=== PATIENT | male | born 1940 | race Caucasian/White ===

== ENCOUNTER 2019-01-01 08:15 | Outpatient (RCR) | payer OTHER, SELFPAY ==
--- NOTE | 2018-12-05 18:04 | PT.OTN ---
Current Diagnoses Lesion of sciatic nerve, unspecified lower limb (12/05/18) Pain in right knee (12/05/18) Physical Therapy Treatment Note PT-OP-A Visit Information Start: 12/05/18 12:37 Freq: Status: Active Protocol: Document 12/05/18 13:50 LRN (Rec: 12/05/18 14:57 LRN [id number]) Out-Patient Physical Therapy Visit Information Visit Information Visit Type Initial Evaluation Visit Start Time 13:50 Visit Stop Time 14:51 Total Visit Minutes 61 Visit Number 0 Evaluation Information Evaluation Date 12/05/18 Precautions Precautions Recent CA history and multiple cancer history (tongue, prostate, bladder), L TKA, hernia repair, history of chronic trochanteric bursitis, DVT history of L lower leg. PT-OP-B Current Condition Start: 12/05/18 12:37 Freq: Status: Active Protocol: Document 12/05/18 13:50 LRN (Rec: 12/05/18 14:57 LRN [id number]) Current Condition History of Current Condition Onset Date 6 months ago Current Complaints Feels weak in both legs. Going up/down stairs and hiking, occ R knee pn History of Current Condition L TKA 6 yrs ago (age 72), recovered well except L leg was weak compared to the R leg . Last year was having problems with the R hip and Piriformis and it has gotten stiff. Has slight pain in R hip and with hiking has R knee pain (intermittent 4-5/10), at end it aches at level of 2/ 10. Can live with the ache and occasional sharp pain. Prior Treatments and Tests None Future Testing and Treatments Planned None Developmental History Developmental History Last year had therapy with [facility] due to hip pain. He had gained mobility and had pain relief. Treatment Goals Patient/Caregiver Goals Wants ex and stretches to build up muscle mass and so he can continue hiking, do yoga with as much range as possible . (L knee ROM post therapy was -3 - 125 deg's). Prior Functional Status Baseline Function- ADL's Independent Baseline Function- Mobility Independent Baseline Function- Recreation/Hobbies Stepping over roots and rocks or going up/down slick rocks or climbing down roots without difficulty. Current Functional Impairments (Reported) Functional Limitations- ADL's Balance: Can't stand SLS on L left leg, but can on the right . Functional Limitations- Mobility/Gait Hikes trails once per week, 2 hours. Has occasional difficulty and pain with stepping over roots an rocks or going up/down slick rocks or climbing down roots. Personal Factors Other Personal Factors That May Effect Hx of Bladder CA, 2 surgeries Therapy/Recovery (10 yrs ago was most recent), treated for prostate cancer early this year with radiation program completed, CA of tongue - 2 yrs ago. L TKA - 6yrs ago, hernia repair - 6 yrs ago, history of chronic trochanteric bursitis, DVT history of L lower leg. PT-OP-G Mobility & Gait Start: 12/05/18 12:37 Freq: Status: Active Protocol: Document 12/05/18 13:50 LRN (Rec: 12/05/18 14:57 LRN [id number]) Stair Climbing Evaluation Comments Stair Climbing Comments Normal no need for assist PT-OP-J Posture/Palpation/Skin Start: 12/05/18 12:37 Freq: Status: Active Protocol: Document 12/05/18 13:50 LRN (Rec: 12/05/18 17:13 LRN [id number]) Posture Evaluation Comments Posture Comments Standing: L foot in ER, discoloration of L lower leg wearing compression stocking ( L only), trunk shift R, L shoulder and scapula is low, L arm held in mild ABD, L nipple low, head forward, L PSIS is posterior, R rotated and elevated, R innominate is mildly anteriorly rotated, calcaneal valgus bilaterally, pes cavus bilaterally. Palpation Assessment Location Leg length Palpation Location ASIS > Medial malleolus Palpation Details L le cm R leg 98.8 cm R medial knee Palpation Location R medial joint line of knee Palpation Findings None/Normal Palpation Details Supine with knee extended and 45 degree flexed. IT Band Palpation Location Mid thigh IT Band Palpation Findings Soft Tissue Tightness, Tenderness PT-OP-K Range of Motion Start: 12/05/18 12:37 Freq: Status: Active Protocol: Document 12/05/18 13:50 LRN (Rec: 12/05/18 17:13 LRN [id number]) Hip Goniometric Range of Motion Hip Right Passive Testing Position Supine Left Passive Testing Position Supine Knee Goniometric Range of Motion Knee Right Knee ROM WFL Yes Patient Position Supine Flexion Active (degrees) 128 Hyper-Extension Active 3 Left Knee ROM WFL No Patient Position Supine Flexion Active (degrees) 120 Hyper-Extension Active 3 Ankle and Foot Goniometric Range of Motion Ankle and Foot ROM Limitations Comments L ankle active IV and EV is decreased. PT-OP-L Special Tests Start: 12/05/18 12:37 Freq: Status: Active Protocol: Document 12/05/18 13:50 LRN (Rec: 12/05/18 17:13 LRN [id number]) Special Tests Knee Special Tests Jovan Test Test Results R knee: negative Comments Pt had pain in lateral R knee with testing of medial side and lateral side of the knee. Pain is primarily on compression of the lateral knee joint. Patellar Grind Test Test Results R knee: positive Comments Pain at knee with compression. Neural Special Tests- Lower Body Sciatic Nerve Tension Test Results negative biliaterally Comments PSLR is 80 deg's bilaterally PT-OP-M Strength Start: 12/05/18 12:37 Freq: Status: Active Protocol: Document 12/05/18 13:50 LRN (Rec: 12/05/18 17:13 LRN [id number]) Trunk Strength Trunk Manual Muscle Testing Testing Position Supine Core Stabilization Pt lacks core stabilization with hip flexion MMT (R worse than L). Hip Strength Hip Manual Muscle Testing Right Flexion (L2) 3 Fair Extension (S1) 5 Normal Abduction 5 Normal Adduction 5 Normal Left Flexion (L2) 5 Normal Extension (S1) 4 Good Abduction 5 Normal Adduction 4+ Good+ Knee Strength Knee Manual Muscle Testing Right Flexion (S2) 4+ Good+ Extension (L3) 5 Normal Comments Medial hamstring is 4+/5. Left Reason Not Measured WFL Ankle/Foot Strength Ankle and Foot Manual Muscle Testing Right Dorsiflexion (L4) 5 Normal Plantarflexion (S1) 5 Normal Left Dorsiflexion (L4) 5 Normal Plantarflexion (S1) 5 Normal PT-OP-Q Treatments Start: 12/05/18 12:37 Freq: Status: Active Protocol: Document 12/05/18 13:50 LRN (Rec: 12/05/18 17:13 LRN [id number]) Therapeutic Exercises Supine Exercises Lateral hip stretch Supine Exercise Name Lateral hip stretch Side left Comments Extra time taken for training/ instructions Piriformis stretch Supine Exercise Name Piriformis stretch Side left Comments Extra time taken for training/ instructions Self-Care/Home Management Treatment Education Patient Education Posture Activities Self-Care/Home Management Activities Discussed self care of use of lift in R shoe due to long L leg, wearing with/without shoes. Instructed pt in HEP: Piriformis and Lateral hip stretch. PT-OP-T Assessment and Plan Start: 12/05/18 12:37 Freq: Status: Active Protocol: Document 12/05/18 13:50 LRN (Rec: 12/05/18 17:13 LRN [id number]) Physical Therapy Assessment Rehab Potential Rehabilitation Potential Excellent Evaluation Complexity Number of Personal Factors/Comorbidities 3 or More Number of Body Systems Impaired 4 or More Clinical Presentation at Evaluation Evolving Impairments Impairments Balance,Pain,Posture,ROM,Soft Tissue Mobility,Strength Goals One Impairment Pt lacks appropriate self care HEP. Easement Worker Goal (LTG) Pt will be independent in a self care HEP. LTG Duration 02/03/19 Assessment Summary Assessment Pt presents with soft tissue dysfunction of the knees bilaterally, causing excessive strain/stress on the R knee and pain. The pt has postural mechanical dysfunction with what appears to be a long left leg by 5.2 cm as measured from ASIS to medial malleolus. The pt will benefit from skilled physical therapy to improve L hip/knee/ankle mobility, R hip/knee (R medial hamstring) and ankle stability/strength, and core strength. Physical Therapy Plan Frequency and Duration Frequency of Treatment 2x/Week Plan of Care Start Date 12/05/18 Plan of Care End Date 02/03/19 Therapeutic Interventions Therapeutic Interventions Balance Training,Home Exercise Program,Manual Therapy, Neuromuscular Re-education, Patient/Caregiver Education, Self-Care/Home Management,Soft Tissue Mobilization,Taping, Therapeutic Exercises Modalities Cold Pack/Ice Massage, Ultrasound Next Visit Focus/Plan Next Note Type Treatment Note Next Visit Plan Review pt's old HEP and start new appropriate HEP for current status. Assess hip IR /ER strength, and ankle IV/EV strength/ROM. Initiate core strengthening and hip (flex/ ext) strengthening. Assess posture in standing with lift in R shoe. Correct R innominate inflare. STM for IT band bilaterally and start pt on HEP for self STM. Discuss self care to minimize R lateral knee pain, after exercise/hiking and resume pt in L TKA ROM ex's to improve mobility. Check SLS and progress ankle ROM (L) and strengthening (bilaterally) for independence to a [facility] within 4-6 weeks with extra time allowed for scheduling changes.
--- NOTE | 2018-12-05 18:05 | PT.OIE ---
Current Diagnoses Lesion of sciatic nerve, unspecified lower limb (12/07/18) Pain in right knee (12/07/18) Past Medical History (Last Reviewed 10/05/17 @ 14:33 by Marco Antonio Bolanos MD) Allergic rhinitis (Chronic) Benign non-nodular prostatic hyperplasia without lower urinary tract symptoms (Chronic 02/03/15) Bilateral hearing loss (Chronic 02/03/15) Bladder cancer (Resolved) BPH (benign prostatic hyperplasia) (Chronic) Cataracts, bilateral (Chronic) Chickenpox (Resolved) Colon polyps (Resolved) DVT of leg (deep venous thrombosis) (Resolved 1987) Erectile dysfunction (Chronic) Herpes (Chronic) History of bladder cancer (Chronic) Hyperlipemia (Chronic) Lesion of bladder (Chronic 02/03/15) Measles (Resolved) Pure hypercholesterolemia (Chronic 03/15/17) 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) Seborrheic keratosis (Chronic 02/03/15) Trochanteric bursitis of right hip (Chronic 03/15/17) Past Surgical History (Last Reviewed 10/05/17 @ 14:33 by Marco Antonio Bolanos MD) History of bladder surgery (Resolved 2002) History of carpal tunnel repair (1993) Hx of cataract surgery (Resolved ~09/2012) Hx of cystoscopy (Resolved) Hx of hernia repair (Resolved) Hx of thumb surgery (Resolved 1983) Hx of total knee arthroplasty (Resolved 06/2012) Hx of vitrectomy (Resolved) Status post transurethral resection of prostate (2002) Visit Care Team Role Provider Type Hector Daugherty MD Attending Provider Physician Primary Care Provider Specialty: Internal Medicine Address: [address] [place] [address], [address], [facility] Email: [email or web address] Physical Therapy Initial Evaluation PT-OP-A Visit Information Start: 12/05/18 12:37 Freq: Status: Active Protocol: Document 12/05/18 13:50 LRN (Rec: 12/05/18 14:57 LRN [id number]) Out-Patient Physical Therapy Visit Information Visit Information Visit Type Initial Evaluation Visit Start Time 13:50 Visit Stop Time 14:51 Total Visit Minutes 61 Visit Number 0 Evaluation Information Evaluation Date 12/05/18 Precautions Precautions Recent CA history and multiple cancer history (tongue, prostate, bladder), L TKA, hernia repair, history of chronic trochanteric bursitis, DVT history of L lower leg. PT-OP-B Current Condition Start: 12/05/18 12:37 Freq: Status: Active Protocol: Document 12/05/18 13:50 LRN (Rec: 12/05/18 14:57 LRN [id number]) Current Condition History of Current Condition Onset Date 6 months ago Current Complaints Feels weak in both legs. Going up/down stairs and hiking, occ R knee pn History of Current Condition L TKA 6 yrs ago (age 72), recovered well except L leg was weak compared to the R leg . Last year was having problems with the R hip and Piriformis with increased stiffness of mobility. He reports slight R hip pain, and with hiking has R knee pain ( intermittent 4-5/10), at end of hikes his pain becomes an ache at a level of 2/10. He states he can live with the ache and an occasional sharp pain, but pain is too noticeable at this time. Prior Treatments and Tests Physical therapy for R hip pain @ [facility]. Future Testing and Treatments Planned None Developmental History Developmental History Last year had therapy with [facility] due to R hip pain. He had gained mobility and had pain relief. L TKA rehab at [facility]. Treatment Goals Patient/Caregiver Goals Wants ex and stretches to build up muscle so he can continue hiking, doing yoga ( with as much range as possible ). L knee ROM was after finishing therapy at [facility]: -3 - 125 deg's. Prior Functional Status Baseline Function- ADL's Independent Baseline Function- Mobility Independent Baseline Function- Recreation/Hobbies Without difficulty: Stepping over roots and rocks, going up /down slick rocks, climbing down roots. Current Functional Impairments (Reported) Functional Limitations- ADL's Balance: Pt reports: Can't stand SLS on L left leg, but can on the right. Functional Limitations- Mobility/Gait Hikes trails once per week, 2 hours. Has occasional difficulty & pain with: stepping over roots and rocks, going up/down slick rocks, climbing down roots. Personal Factors Other Personal Factors That May Effect Hx of Bladder CA, 2 surgeries Therapy/Recovery (10 yrs ago was most recent), treated for prostate cancer early this year with radiation program completed, CA of tongue - 2 yrs ago. L TKA - 6 yrs ago, hernia repair - 6 yrs ago, history of chronic trochanteric bursitis, DVT history of L lower leg. PT-OP-C Subjective Start: 12/05/18 12:37 Freq: Status: Active Protocol: Document 12/05/18 13:50 LRN (Rec: 12/07/18 08:58 LRN [id number]) Patient Questionnaires Lower Extremity Functional Scale LEFS Score 30 LEFS Impairment 60 to 79% Impaired (Score 17- 31) OP-PT Pain Assessment Pain Assessment Grid Paper Pain Assessment Grid Completed Yes Location L Quad, mid femur Pain Location Details L Quad, mid femur Scale Used Numeric (1 - 10) Description Aching R hip Pain Location Details Lateral R hip Intensity 2 Scale Used Numeric (1 - 10) Description Aching,Sharp R knee Pain Location Details R knee anteriorly Intensity 4 Scale Used Numeric (1 - 10) Description Aching,Sharp PT-OP-G Mobility & Gait Start: 12/05/18 12:37 Freq: Status: Active Protocol: Document 12/05/18 13:50 LRN (Rec: 12/05/18 14:57 LRN [id number]) Stair Climbing Evaluation Comments Stair Climbing Comments Normal no need for assist PT-OP-J Posture/Palpation/Skin Start: 12/05/18 12:37 Freq: Status: Active Protocol: Document 12/05/18 13:50 LRN (Rec: 12/05/18 17:13 LRN [id number]) Posture Evaluation Comments Posture Comments Standing: L foot in ER, discoloration of L lower leg wearing compression stocking ( L only), trunk shift R, L shoulder and scapula is low, L arm held in mild ABD, L nipple low, head forward, L PSIS is posterior, R rotated and elevated, R innominate is mildly anteriorly rotated, calcaneal valgus bilaterally, pes cavus bilaterally. Palpation Assessment Location Leg length Palpation Location ASIS > Medial malleolus Palpation Details L le cm R leg 98.8 cm R medial knee Palpation Location R medial joint line of knee Palpation Findings None/Normal Palpation Details Supine with knee extended and 45 degree flexed. IT Band Palpation Location Mid thigh IT Band Palpation Findings Soft Tissue Tightness, Tenderness PT-OP-K Range of Motion Start: 12/05/18 12:37 Freq: Status: Active Protocol: Document 12/05/18 13:50 LRN (Rec: 12/05/18 17:13 LRN [id number]) Hip Goniometric Range of Motion Hip Right Passive Testing Position Supine Flexion w/Knee Flexed 130 Straight Leg Raise 80 Abduction 40 Internal Rotation 35 External Rotation 65 Left Passive Testing Position Supine Flexion w/Knee Flexed 130 Straight Leg Raise 80 Abduction 38 Internal Rotation 35 External Rotation 85 Knee Goniometric Range of Motion Knee Right Knee ROM WFL Yes Patient Position Supine Flexion Active (degrees) 128 Hyper-Extension Active 3 Left Knee ROM WFL No Patient Position Supine Flexion Active (degrees) 120 Hyper-Extension Active 3 Ankle and Foot Goniometric Range of Motion Ankle and Foot ROM Limitations Comments L ankle active IV and EV is decreased. PT-OP-L Special Tests Start: 12/05/18 12:37 Freq: Status: Active Protocol: Document 12/05/18 13:50 LRN (Rec: 12/05/18 17:13 LRN [id number]) Special Tests Knee Special Tests Jovan Test Test Results R knee: negative Comments Pt had pain in lateral R knee with testing of medial side and lateral side of the knee. Pain is primarily on compression of the lateral knee joint. Patellar Grind Test Test Results R knee: positive Comments Pain at knee with compression. Neural Special Tests- Lower Body Sciatic Nerve Tension Test Results negative biliaterally Comments PSLR is 80 deg's bilaterally PT-OP-M Strength Start: 12/05/18 12:37 Freq: Status: Active Protocol: Document 12/05/18 13:50 LRN (Rec: 12/05/18 17:13 LRN [id number]) Trunk Strength Trunk Manual Muscle Testing Testing Position Supine Core Stabilization Pt lacks core stabilization with hip flexion MMT (R worse than L). Hip Strength Hip Manual Muscle Testing Right Flexion (L2) 3 Fair Extension (S1) 5 Normal Abduction 5 Normal Adduction 5 Normal Left Flexion (L2) 5 Normal Extension (S1) 4 Good Abduction 5 Normal Adduction 4+ Good+ Knee Strength Knee Manual Muscle Testing Right Flexion (S2) 4+ Good+ Extension (L3) 5 Normal Comments Medial hamstring is 4+/5. Left Reason Not Measured WFL Ankle/Foot Strength Ankle and Foot Manual Muscle Testing Right Dorsiflexion (L4) 5 Normal Plantarflexion (S1) 5 Normal Left Dorsiflexion (L4) 5 Normal Plantarflexion (S1) 5 Normal PT-OP-Q Treatments Start: 12/05/18 12:37 Freq: Status: Active Protocol: Document 12/05/18 13:50 LRN (Rec: 12/05/18 17:13 LRN [id number]) Therapeutic Exercises Supine Exercises Lateral hip stretch Supine Exercise Name Lateral hip stretch Side left Comments Extra time taken for training/ instructions Piriformis stretch Supine Exercise Name Piriformis stretch Side left Comments Extra time taken for training/ instructions Self-Care/Home Management Treatment Education Patient Education Posture Activities Self-Care/Home Management Activities Discussed self care of use of lift in R shoe due to long L leg, wearing with/without shoes. Instructed pt in HEP: Piriformis and Lateral hip stretch. PT-OP-T Assessment and Plan Start: 12/05/18 12:37 Freq: Status: Active Protocol: Document 12/05/18 13:50 LRN (Rec: 12/05/18 17:13 LRN [id number]) Physical Therapy Assessment Rehab Potential Rehabilitation Potential Excellent Evaluation Complexity Number of Personal Factors/Comorbidities 3 or More Number of Body Systems Impaired 4 or More Clinical Presentation at Evaluation Evolving Impairments Impairments Balance,Pain,Posture,ROM,Soft Tissue Mobility,Strength Goals Four Impairment R knee pain with stepping over objects Short Term Goal (STG) Pt will be educated in proper body mechanics to Wild Life Manager Goal (LTG) Pt will be able to step over rocks and roots while hiking without pain. Three Impairment Decr hip & knee mobility limiting ability to maintain health through yoga Short Term Goal (STG) Pt will be able to obtain symmetry in hip mobility and decrease assymetry of knee flexion in order to improve painfree mobility with descending roots while hiking. STG Duration 01/16/19 Fpc Goal (LTG) Pt will be able to improve hip and knee mobility to make sitting on the floor for yoga exercise tolerable. Pt will return to yoga exercise. LTG Duration 02/03/19 Two Impairment LE and core weakness Short Term Goal (STG) Improve LE strength to 5/5 bilaterally of the hips (R flexors, L extensors & Adductors) and knees (R hamstrings). STG Duration 01/16/19 Fpc Goal (LTG) Pt will be able to maintain core stability when resistance is applied to LE's. LTG Duration 02/03/19 One Impairment Pt lacks appropriate self care HEP. Fpc Goal (LTG) Pt will be independent in a self care HEP. Wants ex and stretches to build up muscle so he can continue hiking, doing yoga ( with as much range as possible ). L knee ROM was after finishing therapy at [facility]: -3 - 125 deg's. LTG Duration 02/03/19 Assessment Summary Assessment Pt presents with soft tissue dysfunction (mobility and strength) of the knees bilaterally and core weakness, causing excessive strain/ stress on the R knee and therefore pain. The pt has postural mechanical dysfunction with what appears to be a long left leg by 5.2 cm as measured from ASIS to medial malleolus. The pt will benefit from skilled physical therapy to improve L hip/knee /ankle mobility, R hip/knee (R medial hamstring) and ankle stability/strength, core strength, and placement on an independent exercise program. Physical Therapy Plan Frequency and Duration Frequency of Treatment 2x/Week Plan of Care Start Date 12/05/18 Plan of Care End Date 02/03/19 Therapeutic Interventions Therapeutic Interventions Balance Training,Home Exercise Program,Manual Therapy, Neuromuscular Re-education, Patient/Caregiver Education, Self-Care/Home Management,Soft Tissue Mobilization,Taping, Therapeutic Exercises Modalities Cold Pack/Ice Massage, Ultrasound Next Visit Focus/Plan Next Note Type Treatment Note Next Visit Plan Review pt's old HEP and start new appropriate HEP for current status. Assess hip IR /ER strength, and ankle IV/EV strength/ROM. Initiate core strengthening and hip (flex/ ext) strengthening. Assess posture in standing with lift in R shoe. Correct R innominate inflare. STM for IT band bilaterally and start pt on HEP for self STM. Discuss self care to minimize R lateral knee pain, after exercise/hiking and resume pt in L TKA ROM ex's to improve mobility. Check SLS and progress ankle ROM (L) and strengthening (bilaterally) for independence to a HEP within 4-6 weeks with extra time allowed for scheduling changes.
--- NOTE | 2018-12-07 12:28 | PT.OTN ---
Current Diagnoses Lesion of sciatic nerve, unspecified lower limb (12/07/18) Pain in right knee (12/07/18) Physical Therapy Treatment Note PT-OP-A Visit Information Start: 12/05/18 12:37 Freq: Status: Active Protocol: Document 12/07/18 09:03 LRN (Rec: 12/07/18 12:28 LRN [id number]) Out-Patient Physical Therapy Visit Information Visit Information Visit Type Treatment Note Visit Start Time 09:03 Visit Stop Time 09:45 Total Visit Minutes 42 Visit Number 2 Number of HEAD GREENSKEEPER Visits 0 Evaluation Information Evaluation Date 12/05/18 Precautions Precautions Recent CA history and multiple cancer history (tongue, prostate, bladder), L TKA, hernia repair, history of chronic trochanteric bursitis, DVT history of L lower leg. PT-OP-B Current Condition Start: 12/05/18 12:37 Freq: Status: Active Protocol: Document 12/05/18 13:50 LRN (Rec: 12/05/18 14:57 LRN [id number]) Current Condition History of Current Condition Onset Date 6 months ago Current Complaints Feels weak in both legs. Going up/down stairs and hiking, occ R knee pn History of Current Condition L TKA 6 yrs ago (age 72), recovered well except L leg was weak compared to the R leg . Last year was having problems with the R hip and Piriformis with increased stiffness of mobility. He reports slight R hip pain, and with hiking has R knee pain ( intermittent 4-5/10), at end of hikes his pain becomes an ache at a level of 2/10. He states he can live with the ache and an occasional sharp pain, but pain is too noticeable at this time. Prior Treatments and Tests Physical therapy for R hip pain @ [facility]. Future Testing and Treatments Planned None Developmental History Developmental History Last year had therapy with [facility] due to R hip pain. He had gained mobility and had pain relief. L TKA rehab at [facility]. Treatment Goals Patient/Caregiver Goals Wants ex and stretches to build up muscle so he can continue hiking, doing yoga ( with as much range as possible ). L knee ROM was after finishing therapy at [facility]: -3 - 125 deg's. Prior Functional Status Baseline Function- ADL's Independent Baseline Function- Mobility Independent Baseline Function- Recreation/Hobbies Without difficulty: Stepping over roots and rocks, going up /down slick rocks, climbing down roots. Current Functional Impairments (Reported) Functional Limitations- ADL's Balance: Pt reports: Can't stand SLS on L left leg, but can on the right. Functional Limitations- Mobility/Gait Hikes trails once per week, 2 hours. Has occasional difficulty & pain with: stepping over roots and rocks, going up/down slick rocks, climbing down roots. Personal Factors Other Personal Factors That May Effect Hx of Bladder CA, 2 surgeries Therapy/Recovery (10 yrs ago was most recent), treated for prostate cancer early this year with radiation program completed, CA of tongue - 2 yrs ago. L TKA - 6 yrs ago, hernia repair - 6 yrs ago, history of chronic trochanteric bursitis, DVT history of L lower leg. PT-OP-C Subjective Start: 12/05/18 12:37 Freq: Status: Active Protocol: Document 12/07/18 09:03 LRN (Rec: 12/07/18 12:28 LRN [id number]) OP-PT Subjective Patient Comments Patient Comments Did exercises and brought previous HEP issued from other PT rehab. States he has not been doing the exercises. Wore his lift in his R shoe today. PT-OP-G Mobility & Gait Start: 12/05/18 12:37 Freq: Status: Active Protocol: Document 12/05/18 13:50 LRN (Rec: 12/05/18 14:57 LRN [id number]) Stair Climbing Evaluation Comments Stair Climbing Comments Normal no need for assist PT-OP-J Posture/Palpation/Skin Start: 12/05/18 12:37 Freq: Status: Active Protocol: Document 12/05/18 13:50 LRN (Rec: 12/05/18 17:13 LRN [id number]) Posture Evaluation Comments Posture Comments Standing: L foot in ER, discoloration of L lower leg wearing compression stocking ( L only), trunk shift R, L shoulder and scapula is low, L arm held in mild ABD, L nipple low, head forward, L PSIS is posterior, R rotated and elevated, R innominate is mildly anteriorly rotated, calcaneal valgus bilaterally, pes cavus bilaterally. Palpation Assessment Location Leg length Palpation Location ASIS > Medial malleolus Palpation Details L le cm R leg 98.8 cm R medial knee Palpation Location R medial joint line of knee Palpation Findings None/Normal Palpation Details Supine with knee extended and 45 degree flexed. IT Band Palpation Location Mid thigh IT Band Palpation Findings Soft Tissue Tightness, Tenderness PT-OP-K Range of Motion Start: 12/05/18 12:37 Freq: Status: Active Protocol: Document 12/05/18 13:50 LRN (Rec: 12/05/18 17:13 LRN [id number]) Hip Goniometric Range of Motion Hip Right Passive Testing Position Supine Flexion w/Knee Flexed 130 Straight Leg Raise 80 Abduction 40 Internal Rotation 35 External Rotation 65 Left Passive Testing Position Supine Flexion w/Knee Flexed 130 Straight Leg Raise 80 Abduction 38 Internal Rotation 35 External Rotation 85 Knee Goniometric Range of Motion Knee Right Knee ROM WFL Yes Patient Position Supine Flexion Active (degrees) 128 Hyper-Extension Active 3 Left Knee ROM WFL No Patient Position Supine Flexion Active (degrees) 120 Hyper-Extension Active 3 Ankle and Foot Goniometric Range of Motion Ankle and Foot ROM Limitations Comments L ankle active IV and EV is decreased. PT-OP-L Special Tests Start: 12/05/18 12:37 Freq: Status: Active Protocol: Document 12/05/18 13:50 LRN (Rec: 12/05/18 17:13 LRN [id number]) Special Tests Knee Special Tests Jovan Test Test Results R knee: negative Comments Pt had pain in lateral R knee with testing of medial side and lateral side of the knee. Pain is primarily on compression of the lateral knee joint. Patellar Grind Test Test Results R knee: positive Comments Pain at knee with compression. Neural Special Tests- Lower Body Sciatic Nerve Tension Test Results negative biliaterally Comments PSLR is 80 deg's bilaterally PT-OP-M Strength Start: 12/05/18 12:37 Freq: Status: Active Protocol: Document 12/05/18 13:50 LRN (Rec: 12/05/18 17:13 LRN [id number]) Trunk Strength Trunk Manual Muscle Testing Testing Position Supine Core Stabilization Pt lacks core stabilization with hip flexion MMT (R worse than L). Hip Strength Hip Manual Muscle Testing Right Flexion (L2) 3 Fair Extension (S1) 5 Normal Abduction 5 Normal Adduction 5 Normal Left Flexion (L2) 5 Normal Extension (S1) 4 Good Abduction 5 Normal Adduction 4+ Good+ Knee Strength Knee Manual Muscle Testing Right Flexion (S2) 4+ Good+ Extension (L3) 5 Normal Comments Medial hamstring is 4+/5. Left Reason Not Measured WFL Ankle/Foot Strength Ankle and Foot Manual Muscle Testing Right Dorsiflexion (L4) 5 Normal Plantarflexion (S1) 5 Normal Left Dorsiflexion (L4) 5 Normal Plantarflexion (S1) 5 Normal PT-OP-Q Treatments Start: 12/05/18 12:37 Freq: Status: Active Protocol: Document 12/07/18 09:03 LRN (Rec: 12/07/18 12:28 LRN [id number]) Cardio Equipment Bicycle (Upright) Duration (Minutes) 6 Resistance 4 Seat Position 11 Therapeutic Exercises Supine Exercises Hamstring/LE neural stretch Supine Exercise Name Hamstring/LE neural stretch Side bilateral Reps/Minutes 6' Comments Extra time taken for training Iliopsoas stretch Supine Exercise Name Ilipsoas stretch Side bilateral Reps/Minutes 5' Comments Extra time taken for review Lateral hip stretch Supine Exercise Name Lateral hip stretch Side left Reps/Minutes 5' Comments Extra time taken for review Piriformis stretch Supine Exercise Name Piriformis stretch Side left Reps/Minutes 5' Comments Extra time taken for review Sidelying Exercises TFL stretch Sidelying Exercise Name Leg off table for TFL stretch Side bilateral Reps/Minutes 5' Comments Extra time taken for review Self-Care/Home Management Treatment Education Patient Education Posture Activities Self-Care/Home Management Activities Postural awareness training due to greater weightbearing through RLE. New cork shoe lift issued & placed in R shoe (1/4 inch). Pt able to use old worn lift in inside house slippers/shoes. Issued & reviewed HEP: Hamstring/LE neural stretch. PT-OP-T Assessment and Plan Start: 12/05/18 12:37 Freq: Status: Active Protocol: Document 12/07/18 09:03 LRN (Rec: 12/07/18 12:28 LRN [id number]) Physical Therapy Assessment Assessment Summary Assessment Pt had fair awareness of prior HEP and needed verbal and physical cuing with ex's. He demonstrates poor core awareness with sidelie ex's therefore further awareness and strengthening of core is needed with pt's ex's. Posture is some better with shoe lift but he tends to lean more through the R LE in standing. Physical Therapy Plan Frequency and Duration Frequency of Treatment 2x/Week Plan of Care Start Date 12/05/18 Plan of Care End Date 02/03/19 Therapeutic Interventions Therapeutic Interventions Balance Training,Home Exercise Program,Manual Therapy, Neuromuscular Re-education, Patient/Caregiver Education, Self-Care/Home Management,Soft Tissue Mobilization,Taping, Therapeutic Exercises Modalities Cold Pack/Ice Massage, Ultrasound Next Visit Focus/Plan Next Note Type Treatment Note Next Visit Plan Assess hip IR/ER strength, and ankle IV/EV strength/ROM. Initiate core strengthening and hip (flex/ext) strengthening. Correct R innominate inflare. STM for IT band bilaterally and start pt on HEP for self STM. Discuss self care to minimize R lateral knee pain, after exercise/hiking and resume pt in L TKA ROM ex's to improve mobility. Check SLS and progress ankle ROM (L) and strengthening (bilaterally) for independence to a HEP within 4-6 weeks with extra time allowed for scheduling changes.
--- NOTE | 2018-12-12 14:36 | PT.OTN ---
Current Diagnoses Lesion of sciatic nerve, unspecified lower limb (12/12/18) Pain in right knee (12/12/18) Physical Therapy Treatment Note PT-OP-A Visit Information Start: 12/05/18 12:37 Freq: Status: Active Protocol: Document 12/12/18 13:32 LRN (Rec: 12/12/18 14:32 LRN [id number]) Out-Patient Physical Therapy Visit Information Visit Information Visit Type Treatment Note Visit Start Time 13:32 Visit Stop Time 14:16 Total Visit Minutes 44 Visit Number 3 Number of RESPIRATORY THERAPY ASSISTANT Visits 0 Evaluation Information Evaluation Date 12/05/18 Precautions Precautions Recent CA history and multiple cancer history (tongue, prostate, bladder), L TKA, hernia repair, history of chronic trochanteric bursitis, DVT history of L lower leg. PT-OP-B Current Condition Start: 12/05/18 12:37 Freq: Status: Active Protocol: Document 12/05/18 13:50 LRN (Rec: 12/05/18 14:57 LRN [id number]) Current Condition History of Current Condition Onset Date 6 months ago Current Complaints Feels weak in both legs. Going up/down stairs and hiking, occ R knee pn History of Current Condition L TKA 6 yrs ago (age 72), recovered well except L leg was weak compared to the R leg . Last year was having problems with the R hip and Piriformis with increased stiffness of mobility. He reports slight R hip pain, and with hiking has R knee pain ( intermittent 4-5/10), at end of hikes his pain becomes an ache at a level of 2/10. He states he can live with the ache and an occasional sharp pain, but pain is too noticeable at this time. Prior Treatments and Tests Physical therapy for R hip pain @ [facility]. Future Testing and Treatments Planned None Developmental History Developmental History Last year had therapy with [facility] due to R hip pain. He had gained mobility and had pain relief. L TKA rehab at [facility]. Treatment Goals Patient/Caregiver Goals Wants ex and stretches to build up muscle so he can continue hiking, doing yoga ( with as much range as possible ). L knee ROM was after finishing therapy at [facility]: -3 - 125 deg's. Prior Functional Status Baseline Function- ADL's Independent Baseline Function- Mobility Independent Baseline Function- Recreation/Hobbies Without difficulty: Stepping over roots and rocks, going up /down slick rocks, climbing down roots. Current Functional Impairments (Reported) Functional Limitations- ADL's Balance: Pt reports: Can't stand SLS on L left leg, but can on the right. Functional Limitations- Mobility/Gait Hikes trails once per week, 2 hours. Has occasional difficulty & pain with: stepping over roots and rocks, going up/down slick rocks, climbing down roots. Personal Factors Other Personal Factors That May Effect Hx of Bladder CA, 2 surgeries Therapy/Recovery (10 yrs ago was most recent), treated for prostate cancer early this year with radiation program completed, CA of tongue - 2 yrs ago. L TKA - 6 yrs ago, hernia repair - 6 yrs ago, history of chronic trochanteric bursitis, DVT history of L lower leg. PT-OP-C Subjective Start: 12/05/18 12:37 Freq: Status: Active Protocol: Document 12/12/18 13:32 LRN (Rec: 12/12/18 14:32 LRN [id number]) OP-PT Subjective Patient Comments Patient Comments Ex's are going well and walked around [employer] this morning. PT-OP-G Mobility & Gait Start: 12/05/18 12:37 Freq: Status: Active Protocol: Document 12/05/18 13:50 LRN (Rec: 12/05/18 14:57 LRN [id number]) Stair Climbing Evaluation Comments Stair Climbing Comments Normal no need for assist PT-OP-J Posture/Palpation/Skin Start: 12/05/18 12:37 Freq: Status: Active Protocol: Document 12/05/18 13:50 LRN (Rec: 12/05/18 17:13 LRN [id number]) Posture Evaluation Comments Posture Comments Standing: L foot in ER, discoloration of L lower leg wearing compression stocking ( L only), trunk shift R, L shoulder and scapula is low, L arm held in mild ABD, L nipple low, head forward, L PSIS is posterior, R rotated and elevated, R innominate is mildly anteriorly rotated, calcaneal valgus bilaterally, pes cavus bilaterally. Palpation Assessment Location Leg length Palpation Location ASIS > Medial malleolus Palpation Details L le cm R leg 98.8 cm R medial knee Palpation Location R medial joint line of knee Palpation Findings None/Normal Palpation Details Supine with knee extended and 45 degree flexed. IT Band Palpation Location Mid thigh IT Band Palpation Findings Soft Tissue Tightness, Tenderness PT-OP-K Range of Motion Start: 12/05/18 12:37 Freq: Status: Active Protocol: Document 12/12/18 13:32 LRN (Rec: 12/12/18 14:32 LRN [id number]) Ankle and Foot Goniometric Range of Motion Ankle and Foot Right Active Testing Position Supine Dorsiflexion with Knee Extended 9 Plantarflexion 32 Inversion 30 Eversion 10 Left Active Testing Position Supine Dorsiflexion with Knee Extended 5 Plantarflexion 40 Inversion 30 Eversion 10 PT-OP-L Special Tests Start: 12/05/18 12:37 Freq: Status: Active Protocol: Document 12/05/18 13:50 LRN (Rec: 12/05/18 17:13 LRN [id number]) Special Tests Knee Special Tests Jovan Test Test Results R knee: negative Comments Pt had pain in lateral R knee with testing of medial side and lateral side of the knee. Pain is primarily on compression of the lateral knee joint. Patellar Grind Test Test Results R knee: positive Comments Pain at knee with compression. Neural Special Tests- Lower Body Sciatic Nerve Tension Test Results negative biliaterally Comments PSLR is 80 deg's bilaterally PT-OP-M Strength Start: 12/05/18 12:37 Freq: Status: Active Protocol: Document 12/12/18 13:32 LRN (Rec: 12/12/18 14:32 LRN [id number]) Trunk Strength Trunk Manual Muscle Testing Flexion 4+ Good+ Extension 5 Normal Rotation Left 3+ Fair+ Rotation Right 4+ Good+ Ankle/Foot Strength Ankle and Foot Manual Muscle Testing Left Dorsiflexion (L4) 5 Normal Plantarflexion (S1) 5 Normal Inversion 4+ Good+ Eversion (S1) 4+ Good+ PT-OP-Q Treatments Start: 12/05/18 12:37 Freq: Status: Active Protocol: Document 12/12/18 13:32 LRN (Rec: 12/12/18 14:32 LRN [id number]) Therapeutic Exercises Supine Exercises Trunk LB rot Supine Exercise Name Trunk LB rot Reps/Minutes 10 x L knee rolls, 5x R knee rolls; 2 sets Trunk UB rot Supine Exercise Name Trunk UB Left rotation Side left Reps/Minutes 10 x 2 Bridging Supine Exercise Name Bridging Side bilateral Reps/Minutes 15x SLR Supine Exercise Name SLR Side bilateral Reps/Minutes 15x Comments With core stabilization Hamstring/LE neural stretch Supine Exercise Name Hamstring/LE neural stretch Side bilateral Reps/Minutes 4' Sitting Exercises Ankle EV Sitting Exercise Name Ankle EV strengthening Side bilateral Resistance Lev 2 T-Band Reps/Minutes 20x Ankle IV Sitting Exercise Name Ankle IV strengthening Side bilateral Resistance Lev 2 T-Band Reps/Minutes 15 x 2 Standing Exercises Gastroc/Soleus stretch Standing Exercise Name Gastroc/Soleus stretch against step f/b active stretch Side bilateral Reps/Minutes 60 stretch f/b 10x active stretch Manual Therapy Treatment Soft Tissue Mobilization TFL/IT-Band Body Location TFL/IT Band Mobilization Type Instrument Assisted Intensity/Depth Superficial Body Position Sidelying Comments Roller stick Self-Care/Home Management Treatment Education Patient Education Home Exercise Program Activities Self-Care/Home Management Activities Issued & reviewed HEP: Ankle IV/EV with T-Band and Gastroc/ Soleus stretch f/b active stretch (ankle DF). PT-OP-T Assessment and Plan Start: 12/05/18 12:37 Freq: Status: Active Protocol: Document 12/12/18 13:32 LRN (Rec: 12/12/18 14:32 LRN [id number]) Physical Therapy Assessment Goals Four Impairment R knee pain with stepping over objects Short Term Goal (STG) Pt will be educated in proper body mechanics to [place] Goal (LTG) Pt will be able to step over rocks and roots while hiking without pain. Three Impairment Decr hip & knee mobility limiting ability to maintain health through yoga Short Term Goal (STG) Pt will be able to obtain symmetry in hip mobility and decrease asymmetry of knee flexion in order to improve painfree mobility with descending roots while hiking. STG Duration 01/16/19 [place] Goal (LTG) Pt will be able to improve hip and knee mobility to make sitting on the floor for yoga exercise tolerable. Pt will return to yoga exercise. LTG Duration 02/03/19 Two Impairment LE and core weakness Short Term Goal (STG) Improve LE strength to 5/5 bilaterally of the hips (R flexors, L extensors & Adductors) and knees (R hamstrings). STG Duration 01/16/19 [place] Goal (LTG) Pt will be able to maintain core stability when resistance is applied to LE's. LTG Duration 02/03/19 One Impairment Pt lacks appropriate self care HEP. Half-Way Goal (LTG) Pt will be independent in a self care HEP. Wants ex and stretches to build up muscle so he can continue hiking, doing yoga ( with as much range as possible ). L knee ROM was after finishing therapy at [facility]: -3 - 125 deg's. LTG Duration 02/03/19 Assessment Summary Assessment Pt had good understanding of HEP after training. He has decreased trunk rotation strength (L>R) and ankle DF and IV/EV strength & mobility, but his strength is good in his available range. Pt appears to learn ex's quickly. Physical Therapy Plan Frequency and Duration Frequency of Treatment 2x/Week Plan of Care Start Date 12/05/18 Plan of Care End Date 02/03/19 Therapeutic Interventions Therapeutic Interventions Balance Training,Home Exercise Program,Manual Therapy, Neuromuscular Re-education, Patient/Caregiver Education, Self-Care/Home Management,Soft Tissue Mobilization,Taping, Therapeutic Exercises Modalities Cold Pack/Ice Massage, Ultrasound Next Visit Focus/Plan Next Note Type Treatment Note Next Visit Plan Assess for R innominate inflare and correct as needed. Progress core strengthening and hip (flex/ext) strengthening. Start pt on HEP for self STM. Discuss self care to minimize R lateral knee pain, after exercise/hiking and resume pt in L TKA ROM ex's to improve mobility. Check SLS and progress ankle DF ROM (L) and strengthening (bilaterally) for independence to a HEP within 4-6 weeks with extra time allowed for scheduling changes.
--- NOTE | 2018-12-14 13:55 | PT.OTN ---
Current Diagnoses Lesion of sciatic nerve, unspecified lower limb (12/14/18) Pain in right knee (12/14/18) Physical Therapy Treatment Note PT-OP-A Visit Information Start: 12/05/18 12:37 Freq: Status: Active Protocol: Document 12/14/18 13:36 AMH (Rec: 12/14/18 13:42 AMH [email or web address]) Out-Patient Physical Therapy Visit Information Visit Information Visit Type Treatment Note Visit Start Time 09:00 Visit Stop Time 09:45 Total Visit Minutes 45 Visit Number 4 PT-OP-B Current Condition Start: 12/05/18 12:37 Freq: Status: Active Protocol: Document 12/05/18 13:50 LRN (Rec: 12/05/18 14:57 LRN [id number]) Current Condition History of Current Condition Onset Date 6 months ago Current Complaints Feels weak in both legs. Going up/down stairs and hiking, occ R knee pn History of Current Condition L TKA 6 yrs ago (age 72), recovered well except L leg was weak compared to the R leg . Last year was having problems with the R hip and Piriformis with increased stiffness of mobility. He reports slight R hip pain, and with hiking has R knee pain ( intermittent 4-5/10), at end of hikes his pain becomes an ache at a level of 2/10. He states he can live with the ache and an occasional sharp pain, but pain is too noticeable at this time. Prior Treatments and Tests Physical therapy for R hip pain @ [facility]. Future Testing and Treatments Planned None Developmental History Developmental History Last year had therapy with [facility] due to R hip pain. He had gained mobility and had pain relief. L TKA rehab at [facility]. Treatment Goals Patient/Caregiver Goals Wants ex and stretches to build up muscle so he can continue hiking, doing yoga ( with as much range as possible ). L knee ROM was after finishing therapy at [facility]: -3 - 125 deg's. Prior Functional Status Baseline Function- ADL's Independent Baseline Function- Mobility Independent Baseline Function- Recreation/Hobbies Without difficulty: Stepping over roots and rocks, going up /down slick rocks, climbing down roots. Current Functional Impairments (Reported) Functional Limitations- ADL's Balance: Pt reports: Can't stand SLS on L left leg, but can on the right. Functional Limitations- Mobility/Gait Hikes trails once per week, 2 hours. Has occasional difficulty & pain with: stepping over roots and rocks, going up/down slick rocks, climbing down roots. Personal Factors Other Personal Factors That May Effect Hx of Bladder CA, 2 surgeries Therapy/Recovery (10 yrs ago was most recent), treated for prostate cancer early this year with radiation program completed, CA of tongue - 2 yrs ago. L TKA - 6 yrs ago, hernia repair - 6 yrs ago, history of chronic trochanteric bursitis, DVT history of L lower leg. PT-OP-C Subjective Start: 12/05/18 12:37 Freq: Status: Active Protocol: Document 12/14/18 13:36 AMH (Rec: 12/14/18 13:42 AMH [email or web address]) OP-PT Subjective Patient Comments Patient Comments pt reports he is working on getting stronger, [place] and does yoga , he is also using the equipment at the pool for strengthening PT-OP-G Mobility & Gait Start: 12/05/18 12:37 Freq: Status: Active Protocol: Document 12/05/18 13:50 LRN (Rec: 12/05/18 14:57 LRN [id number]) Stair Climbing Evaluation Comments Stair Climbing Comments Normal no need for assist PT-OP-J Posture/Palpation/Skin Start: 12/05/18 12:37 Freq: Status: Active Protocol: Document 12/05/18 13:50 LRN (Rec: 12/05/18 17:13 LRN [id number]) Posture Evaluation Comments Posture Comments Standing: L foot in ER, discoloration of L lower leg wearing compression stocking ( L only), trunk shift R, L shoulder and scapula is low, L arm held in mild ABD, L nipple low, head forward, L PSIS is posterior, R rotated and elevated, R innominate is mildly anteriorly rotated, calcaneal valgus bilaterally, pes cavus bilaterally. Palpation Assessment Location Leg length Palpation Location ASIS > Medial malleolus Palpation Details L le cm R leg 98.8 cm R medial knee Palpation Location R medial joint line of knee Palpation Findings None/Normal Palpation Details Supine with knee extended and 45 degree flexed. IT Band Palpation Location Mid thigh IT Band Palpation Findings Soft Tissue Tightness, Tenderness PT-OP-K Range of Motion Start: 12/05/18 12:37 Freq: Status: Active Protocol: Document 12/12/18 13:32 LRN (Rec: 12/12/18 14:32 LRN [id number]) Ankle and Foot Goniometric Range of Motion Ankle and Foot Right Active Testing Position Supine Dorsiflexion with Knee Extended 9 Plantarflexion 32 Inversion 30 Eversion 10 Left Active Testing Position Supine Dorsiflexion with Knee Extended 5 Plantarflexion 40 Inversion 30 Eversion 10 PT-OP-L Special Tests Start: 12/05/18 12:37 Freq: Status: Active Protocol: Document 12/05/18 13:50 LRN (Rec: 12/05/18 17:13 LRN [id number]) Special Tests Knee Special Tests Jovan Test Test Results R knee: negative Comments Pt had pain in lateral R knee with testing of medial side and lateral side of the knee. Pain is primarily on compression of the lateral knee joint. Patellar Grind Test Test Results R knee: positive Comments Pain at knee with compression. Neural Special Tests- Lower Body Sciatic Nerve Tension Test Results negative biliaterally Comments PSLR is 80 deg's bilaterally PT-OP-M Strength Start: 12/05/18 12:37 Freq: Status: Active Protocol: Document 12/12/18 13:32 LRN (Rec: 12/12/18 14:32 LRN [id number]) Trunk Strength Trunk Manual Muscle Testing Flexion 4+ Good+ Extension 5 Normal Rotation Left 3+ Fair+ Rotation Right 4+ Good+ Ankle/Foot Strength Ankle and Foot Manual Muscle Testing Left Dorsiflexion (L4) 5 Normal Plantarflexion (S1) 5 Normal Inversion 4+ Good+ Eversion (S1) 4+ Good+ PT-OP-Q Treatments Start: 12/05/18 12:37 Freq: Status: Active Protocol: Document 12/14/18 13:36 AMH (Rec: 12/14/18 13:42 AMH [email or web address]) Cardio Equipment Bicycle (Upright) Duration (Minutes) 6 Resistance 4 Seat Position 11 Gym Equipment Cable Column (Body Solid) Hip Abduction Resistance 30# Reps/Time 3 x 10 reps Shuttle Recovery Unilateral Squats Details 50# Reps/Time x 15 Bilateral Squats Details 100# Reps/Time 3 x 10 reps Therapeutic Exercises Supine Exercises 2 Supine Exercise Name ball bridges with hip extension 1 Supine Exercise Name ball rolls with hamstring curl Bridging Supine Exercise Name Bridging Side bilateral Reps/Minutes 15x SLR Supine Exercise Name SLR Side bilateral Reps/Minutes 15x Comments With core stabilization Iliopsoas stretch Supine Exercise Name Ilipsoas stretch Side bilateral Reps/Minutes 5' Comments Extra time taken for review Piriformis stretch Supine Exercise Name Piriformis stretch Side left Reps/Minutes 5' Comments Extra time taken for review Other Exercises 2 Other Exercise Name standing side steps with theraband Reps/Minutes 2 minutes 1 Other Exercise Name standing squats Reps/Minutes x 10 Manual Therapy Treatment Soft Tissue Mobilization 1 Body Location R quad Mobilization Type Myofascial Release TFL/IT-Band Body Location TFL/IT Band Mobilization Type Myofascial Release Intensity/Depth Superficial Body Position Sidelying Comments Roller stick Manual Techniques 1 Type prone manual quad stretching PT-OP-T Assessment and Plan Start: 12/05/18 12:37 Freq: Status: Active Protocol: Document 12/14/18 13:52 AMH (Rec: 12/14/18 13:55 AMH [email or web address]) Physical Therapy Assessment Assessment Summary Assessment pt tolerated treatment well, he is tight in his left quad from the history of his total knee replacement, he tolerated MFR and manual stretching well. We worked on quad control and increased ex for lateral hips. Right innominante flare not noted today, worked on core stabilization and added in a few ball exercises Physical Therapy Plan Next Visit Focus/Plan Next Note Type Treatment Note Next Visit Plan continue progressing LE strengthening, left knee mobility, flexibility and functional use of the LE
--- NOTE | 2018-12-19 10:30 | PT.OTN ---
Current Diagnoses Lesion of sciatic nerve, unspecified lower limb (12/19/18) Pain in right knee (12/19/18) Physical Therapy Treatment Note PT-OP-A Visit Information Start: 12/05/18 12:37 Freq: Status: Active Protocol: Document 12/19/18 09:47 SP (Rec: 12/19/18 10:33 SP [id number]) Out-Patient Physical Therapy Visit Information Visit Information Visit Type Treatment Note Visit Start Time 09:47 Visit Stop Time 10:30 Total Visit Minutes 43 Visit Number 5 Number of UTILIZATION MANAGEMENT NURSE Visits 1 PT-OP-B Current Condition Start: 12/05/18 12:37 Freq: Status: Active Protocol: Document 12/05/18 13:50 LRN (Rec: 12/05/18 14:57 LRN [id number]) Current Condition History of Current Condition Onset Date 6 months ago Current Complaints Feels weak in both legs. Going up/down stairs and hiking, occ R knee pn History of Current Condition L TKA 6 yrs ago (age 72), recovered well except L leg was weak compared to the R leg . Last year was having problems with the R hip and Piriformis with increased stiffness of mobility. He reports slight R hip pain, and with hiking has R knee pain ( intermittent 4-5/10), at end of hikes his pain becomes an ache at a level of 2/10. He states he can live with the ache and an occasional sharp pain, but pain is too noticeable at this time. Prior Treatments and Tests Physical therapy for R hip pain @ [facility]. Future Testing and Treatments Planned None Developmental History Developmental History Last year had therapy with [facility] due to R hip pain. He had gained mobility and had pain relief. L TKA rehab at [facility]. Treatment Goals Patient/Caregiver Goals Wants ex and stretches to build up muscle so he can continue hiking, doing yoga ( with as much range as possible ). L knee ROM was after finishing therapy at [facility]: -3 - 125 deg's. Prior Functional Status Baseline Function- ADL's Independent Baseline Function- Mobility Independent Baseline Function- Recreation/Hobbies Without difficulty: Stepping over roots and rocks, going up /down slick rocks, climbing down roots. Current Functional Impairments (Reported) Functional Limitations- ADL's Balance: Pt reports: Can't stand SLS on L left leg, but can on the right. Functional Limitations- Mobility/Gait Hikes trails once per week, 2 hours. Has occasional difficulty & pain with: stepping over roots and rocks, going up/down slick rocks, climbing down roots. Personal Factors Other Personal Factors That May Effect Hx of Bladder CA, 2 surgeries Therapy/Recovery (10 yrs ago was most recent), treated for prostate cancer early this year with radiation program completed, CA of tongue - 2 yrs ago. L TKA - 6 yrs ago, hernia repair - 6 yrs ago, history of chronic trochanteric bursitis, DVT history of L lower leg. PT-OP-C Subjective Start: 12/05/18 12:37 Freq: Status: Active Protocol: Document 12/19/18 09:47 SP (Rec: 12/19/18 10:33 SP [id number]) OP-PT Subjective Patient Comments Patient Comments Pt stated doing pretty good today, PT-OP-G Mobility & Gait Start: 12/05/18 12:37 Freq: Status: Active Protocol: Document 12/05/18 13:50 LRN (Rec: 12/05/18 14:57 LRN [id number]) Stair Climbing Evaluation Comments Stair Climbing Comments Normal no need for assist PT-OP-J Posture/Palpation/Skin Start: 12/05/18 12:37 Freq: Status: Active Protocol: Document 12/05/18 13:50 LRN (Rec: 12/05/18 17:13 LRN [id number]) Posture Evaluation Comments Posture Comments Standing: L foot in ER, discoloration of L lower leg wearing compression stocking ( L only), trunk shift R, L shoulder and scapula is low, L arm held in mild ABD, L nipple low, head forward, L PSIS is posterior, R rotated and elevated, R innominate is mildly anteriorly rotated, calcaneal valgus bilaterally, pes cavus bilaterally. Palpation Assessment Location Leg length Palpation Location ASIS > Medial malleolus Palpation Details L le cm R leg 98.8 cm R medial knee Palpation Location R medial joint line of knee Palpation Findings None/Normal Palpation Details Supine with knee extended and 45 degree flexed. IT Band Palpation Location Mid thigh IT Band Palpation Findings Soft Tissue Tightness, Tenderness PT-OP-K Range of Motion Start: 12/05/18 12:37 Freq: Status: Active Protocol: Document 12/12/18 13:32 LRN (Rec: 12/12/18 14:32 LRN [id number]) Ankle and Foot Goniometric Range of Motion Ankle and Foot Right Active Testing Position Supine Dorsiflexion with Knee Extended 9 Plantarflexion 32 Inversion 30 Eversion 10 Left Active Testing Position Supine Dorsiflexion with Knee Extended 5 Plantarflexion 40 Inversion 30 Eversion 10 PT-OP-L Special Tests Start: 12/05/18 12:37 Freq: Status: Active Protocol: Document 12/05/18 13:50 LRN (Rec: 12/05/18 17:13 LRN [id number]) Special Tests Knee Special Tests Jovan Test Test Results R knee: negative Comments Pt had pain in lateral R knee with testing of medial side and lateral side of the knee. Pain is primarily on compression of the lateral knee joint. Patellar Grind Test Test Results R knee: positive Comments Pain at knee with compression. Neural Special Tests- Lower Body Sciatic Nerve Tension Test Results negative biliaterally Comments PSLR is 80 deg's bilaterally PT-OP-M Strength Start: 12/05/18 12:37 Freq: Status: Active Protocol: Document 12/12/18 13:32 LRN (Rec: 12/12/18 14:32 LRN [id number]) Trunk Strength Trunk Manual Muscle Testing Flexion 4+ Good+ Extension 5 Normal Rotation Left 3+ Fair+ Rotation Right 4+ Good+ Ankle/Foot Strength Ankle and Foot Manual Muscle Testing Left Dorsiflexion (L4) 5 Normal Plantarflexion (S1) 5 Normal Inversion 4+ Good+ Eversion (S1) 4+ Good+ PT-OP-Q Treatments Start: 12/05/18 12:37 Freq: Status: Active Protocol: Document 12/19/18 09:47 SP (Rec: 12/19/18 10:33 SP [id number]) Cardio Equipment Bicycle (Upright) Duration (Minutes) 6 Resistance 6 Seat Position 6 Gym Equipment Shuttle Recovery Unilateral Squats Details 50# Reps/Time 3x10 alternate BLE Bilateral Squats Details 150# Reps/Time 3 x 10 reps alternate BLE Therapeutic Exercises Supine Exercises Bridging Supine Exercise Name Bridging Side bilateral Reps/Minutes 15x Comments double 2x10, single 2x7 reps alternate BLE Hamstring/LE neural stretch Supine Exercise Name HS Side bilateral Equipment Used strap Reps/Minutes 30 x3 Comments med/lat/whole Iliopsoas stretch Side bilateral Reps/Minutes 2 min Lateral hip stretch Supine Exercise Name ITb stretch Side bilateral Equipment Used strap Reps/Minutes 2 min Piriformis stretch Supine Exercise Name Piriformis stretch Side left Reps/Minutes 5' Comments Extra time taken for review Sitting Exercises quad rolling Equipment Used rolling pin Reps/Minutes 1 min Comments tolerant pressure self STM Other Exercises 2 Other Exercise Name standing side steps with theraband Equipment Used Y Theraloop, over dowels on floor Reps/Minutes 10 ft 3 laps PT-OP-T Assessment and Plan Start: 12/05/18 12:37 Freq: Status: Active Protocol: Document 12/19/18 09:47 SP (Rec: 12/19/18 10:33 SP [id number]) Physical Therapy Assessment Goals Four Impairment R knee pain with stepping over objects Short Term Goal (STG) Pt will be educated in proper body mechanics to Management And Budget Analyst Goal (LTG) Pt will be able to step over rocks and roots while hiking without pain. Three Impairment Decr hip & knee mobility limiting ability to maintain health through yoga Short Term Goal (STG) Pt will be able to obtain symmetry in hip mobility and decrease asymmetry of knee flexion in order to improve painfree mobility with descending roots while hiking. STG Duration 01/16/19 Management And Budget Analyst Goal (LTG) Pt will be able to improve hip and knee mobility to make sitting on the floor for yoga exercise tolerable. Pt will return to yoga exercise. LTG Duration 02/03/19 Two Impairment LE and core weakness Short Term Goal (STG) Improve LE strength to 5/5 bilaterally of the hips (R flexors, L extensors & Adductors) and knees (R hamstrings). STG Duration 01/16/19 Custodial Goal (LTG) Pt will be able to maintain core stability when resistance is applied to LE's. LTG Duration 02/03/19 One Impairment Pt lacks appropriate self care HEP. Custodial Goal (LTG) Pt will be independent in a self care HEP. Wants ex and stretches to build up muscle so he can continue hiking, doing yoga ( with as much range as possible ). L knee ROM was after finishing therapy at [facility]: -3 - 125 deg's. LTG Duration 02/03/19 Assessment Summary Assessment Pt tolerated increased 100to 150 # during B shuttle recovery with cuing for not end range extension. Pt tolerated increased reps duirng SL to 3x15. Cued for knee alignment knee with midfoot with slow eccentric control. Pt had good tolerance to increase single leg bridge , cued for neutral spine and tolerable range with no LS extension compensation. Instructed self Manual toquad using rolling pin with positive feedback. Physical Therapy Plan Frequency and Duration Frequency of Treatment 2x/Week Plan of Care Start Date 12/05/18 Plan of Care End Date 02/03/19 Therapeutic Interventions Therapeutic Interventions Balance Training,Home Exercise Program,Manual Therapy, Neuromuscular Re-education, Patient/Caregiver Education, Self-Care/Home Management,Soft Tissue Mobilization,Taping, Therapeutic Exercises Modalities Cold Pack/Ice Massage, Ultrasound Next Visit Focus/Plan Next Note Type Treatment Note Next Visit Plan REivew added: Single bridge, assess rolling pin self STMs. continue progressing LE strengthening, left knee mobility, flexibility and functional use of the LE
--- NOTE | 2018-12-22 18:25 | PT.OTN ---
Current Diagnoses Lesion of sciatic nerve, unspecified lower limb (12/22/18) Pain in right knee (12/22/18) Physical Therapy Treatment Note PT-OP-A Visit Information Start: 12/05/18 12:37 Freq: Status: Active Protocol: Document 12/22/18 08:20 LRN (Rec: 12/22/18 09:05 LRN [id number]) Out-Patient Physical Therapy Visit Information Visit Information Visit Type Treatment Note Visit Start Time 08:20 Visit Stop Time 09:04 Total Visit Minutes 44 Visit Number 6 Number of STRATEGIC SOURCING MANAGER Visits 0 Evaluation Information Evaluation Date 12/05/18 Precautions Precautions Recent CA history and multiple cancer history (tongue, prostate, bladder), L TKA, hernia repair, history of chronic trochanteric bursitis, DVT history of L lower leg. L leg measures long. PT-OP-B Current Condition Start: 12/05/18 12:37 Freq: Status: Active Protocol: Document 12/05/18 13:50 LRN (Rec: 12/05/18 14:57 LRN [id number]) Current Condition History of Current Condition Onset Date 6 months ago Current Complaints Feels weak in both legs. Going up/down stairs and hiking, occ R knee pn History of Current Condition L TKA 6 yrs ago (age 72), recovered well except L leg was weak compared to the R leg . Last year was having problems with the R hip and Piriformis with increased stiffness of mobility. He reports slight R hip pain, and with hiking has R knee pain ( intermittent 4-5/10), at end of hikes his pain becomes an ache at a level of 2/10. He states he can live with the ache and an occasional sharp pain, but pain is too noticeable at this time. Prior Treatments and Tests Physical therapy for R hip pain @ [facility]. Future Testing and Treatments Planned None Developmental History Developmental History Last year had therapy with [facility] due to R hip pain. He had gained mobility and had pain relief. L TKA rehab at [place] [facility]. Treatment Goals Patient/Caregiver Goals Wants ex and stretches to build up muscle so he can continue hiking, doing yoga ( with as much range as possible ). L knee ROM was after finishing therapy at [place] [facility]: -3 - 125 deg's. Prior Functional Status Baseline Function- ADL's Independent Baseline Function- Mobility Independent Baseline Function- Recreation/Hobbies Without difficulty: Stepping over roots and rocks, going up /down slick rocks, climbing down roots. Current Functional Impairments (Reported) Functional Limitations- ADL's Balance: Pt reports: Can't stand SLS on L left leg, but can on the right. Functional Limitations- Mobility/Gait Hikes trails once per week, 2 hours. Has occasional difficulty & pain with: stepping over roots and rocks, going up/down slick rocks, climbing down roots. Personal Factors Other Personal Factors That May Effect Hx of Bladder CA, 2 surgeries Therapy/Recovery (10 yrs ago was most recent), treated for prostate cancer early this year with radiation program completed, CA of tongue - 2 yrs ago. L TKA - 6 yrs ago, hernia repair - 6 yrs ago, history of chronic trochanteric bursitis, DVT history of L lower leg. PT-OP-C Subjective Start: 12/05/18 12:37 Freq: Status: Active Protocol: Document 12/22/18 08:20 LRN (Rec: 12/22/18 09:05 LRN [id number]) OP-PT Subjective Patient Comments Patient Comments Pt stated doing pretty good today, PT-OP-G Mobility & Gait Start: 12/05/18 12:37 Freq: Status: Active Protocol: Document 12/05/18 13:50 LRN (Rec: 12/05/18 14:57 LRN [id number]) Stair Climbing Evaluation Comments Stair Climbing Comments Normal no need for assist PT-OP-J Posture/Palpation/Skin Start: 12/05/18 12:37 Freq: Status: Active Protocol: Document 12/05/18 13:50 LRN (Rec: 12/05/18 17:13 LRN [id number]) Posture Evaluation Comments Posture Comments Standing: L foot in ER, discoloration of L lower leg wearing compression stocking ( L only), trunk shift R, L shoulder and scapula is low, L arm held in mild ABD, L nipple low, head forward, L PSIS is posterior, R rotated and elevated, R innominate is mildly anteriorly rotated, calcaneal valgus bilaterally, pes cavus bilaterally. Palpation Assessment Location Leg length Palpation Location ASIS > Medial malleolus Palpation Details L le cm R leg 98.8 cm R medial knee Palpation Location R medial joint line of knee Palpation Findings None/Normal Palpation Details Supine with knee extended and 45 degree flexed. IT Band Palpation Location Mid thigh IT Band Palpation Findings Soft Tissue Tightness, Tenderness PT-OP-K Range of Motion Start: 12/05/18 12:37 Freq: Status: Active Protocol: Document 12/12/18 13:32 LRN (Rec: 12/12/18 14:32 LRN [id number]) Ankle and Foot Goniometric Range of Motion Ankle and Foot Right Active Testing Position Supine Dorsiflexion with Knee Extended 9 Plantarflexion 32 Inversion 30 Eversion 10 Left Active Testing Position Supine Dorsiflexion with Knee Extended 5 Plantarflexion 40 Inversion 30 Eversion 10 PT-OP-L Special Tests Start: 12/05/18 12:37 Freq: Status: Active Protocol: Document 12/05/18 13:50 LRN (Rec: 12/05/18 17:13 LRN [id number]) Special Tests Knee Special Tests Jovan Test Test Results R knee: negative Comments Pt had pain in lateral R knee with testing of medial side and lateral side of the knee. Pain is primarily on compression of the lateral knee joint. Patellar Grind Test Test Results R knee: positive Comments Pain at knee with compression. Neural Special Tests- Lower Body Sciatic Nerve Tension Test Results negative biliaterally Comments PSLR is 80 deg's bilaterally PT-OP-M Strength Start: 12/05/18 12:37 Freq: Status: Active Protocol: Document 12/12/18 13:32 LRN (Rec: 12/12/18 14:32 LRN [id number]) Trunk Strength Trunk Manual Muscle Testing Flexion 4+ Good+ Extension 5 Normal Rotation Left 3+ Fair+ Rotation Right 4+ Good+ Ankle/Foot Strength Ankle and Foot Manual Muscle Testing Left Dorsiflexion (L4) 5 Normal Plantarflexion (S1) 5 Normal Inversion 4+ Good+ Eversion (S1) 4+ Good+ PT-OP-Q Treatments Start: 12/05/18 12:37 Freq: Status: Active Protocol: Document 12/22/18 08:20 LRN (Rec: 12/22/18 09:05 LRN [id number]) Gym Equipment Cable Column (Body Solid) Leg Curl Details Focus on Pelvis (ASIS check) in neutral Resistance 40# Reps/Time 10x Leg Extension Details Focus on Pelvis (ASIS check) in neutral Resistance 30# Reps/Time 10x Hip Adduction Details Focus on Core stability, Seat back 0 holes Resistance 40# Reps/Time 8 reps x 3 Hip Abduction Details Focus on Core stability, Seat back 0 holes Resistance 40# Reps/Time 8 reps x 3 Therapeutic Exercises Supine Exercises Ralph heel slides Supine Exercise Name Ralph heel slides Equipment Used Sliding sheet for feet Reps/Minutes 8' Comments Poor response after extra time taken for proper symmetry Bridging Supine Exercise Name Bridging Side bilateral Reps/Minutes 15x Comments double 1x10, single (L) 2x10 reps Hamstring/LE neural stretch Supine Exercise Name HS Side bilateral Equipment Used strap Reps/Minutes 30 x3 Comments med/lat/whole Manual Therapy Treatment Joint Mobilizations Innominate rotation Joint Correction for L anterior rot x 2 & R posterior rot x 2 Direction R Posterior more effective Reps/Duration 15' Comments MET PT-OP-T Assessment and Plan Start: 12/05/18 12:37 Freq: Status: Active Protocol: Document 12/22/18 08:20 LRN (Rec: 12/22/18 09:05 LRN [id number]) Physical Therapy Assessment Goals Four Impairment R knee pain with stepping over objects Short Term Goal (STG) Pt will be educated in proper body mechanics to Correction Goal (LTG) Pt will be able to step over rocks and roots while hiking without pain. Three Impairment Decr hip & knee mobility limiting ability to maintain health through yoga Short Term Goal (STG) Pt will be able to obtain symmetry in hip mobility and decrease asymmetry of knee flexion in order to improve painfree mobility with descending roots while hiking. STG Duration 01/16/19 Correction Goal (LTG) Pt will be able to improve hip and knee mobility to make sitting on the floor for yoga exercise tolerable. Pt will return to yoga exercise. LTG Duration 02/03/19 Two Impairment LE and core weakness Short Term Goal (STG) Improve LE strength to 5/5 bilaterally of the hips (R flexors, L extensors & Adductors) and knees (R hamstrings). STG Duration 01/16/19 Correction Goal (LTG) Pt will be able to maintain core stability when resistance is applied to LE's. LTG Duration 02/03/19 One Impairment Pt lacks appropriate self care HEP. Multicraft Operator Goal (LTG) Pt will be independent in a self care HEP. Wants ex and stretches to build up muscle so he can continue hiking, doing yoga ( with as much range as possible ). L knee ROM was after finishing therapy at [place] [facility]: -3 - 125 deg's. LTG Duration 02/03/19 Assessment Summary Assessment Pt was anteriorly rotated in R innominate without inflare ( note: L leg measures long). Pt weak with R hip flex and L hamstring; therefore trunk rotates left to compensate. Pt was not able to keep core/ pelvic stability with heel slides; therefore pelvic correction was needed a second time. Pt needed much cuing and educating on keeping a neutral spine. He was able to achieve neutral at end of treatment but felt crooked. Physical Therapy Plan Frequency and Duration Frequency of Treatment 2x/Week Plan of Care Start Date 12/05/18 Plan of Care End Date 02/03/19 Next Visit Focus/Plan Next Note Type Treatment Note Next Visit Plan Check SLS and progress ankle DF ROM(L) and strengthening bilaterally. Resume L TKA ROM ex's for HEP. Cont L singe bridge with or without R hip flexion. Check self massage with rolling pin. Cont progressing L knee mobility and functional use of LE. Progress core/pelvic stab with LE strengthening (R hip flex/ knee ext or L hip ext/knee flex). HEP w/in 2-4 weeks.
--- NOTE | 2018-12-25 12:23 | PT.OTN ---
Current Diagnoses Lesion of sciatic nerve, unspecified lower limb (12/25/18) Pain in right knee (12/25/18) Physical Therapy Treatment Note PT-OP-A Visit Information Start: 12/05/18 12:37 Freq: Status: Active Protocol: Document 12/25/18 08:18 LRN (Rec: 12/25/18 09:03 LRN [id number]) Out-Patient Physical Therapy Visit Information Visit Information Visit Type Treatment Note Visit Start Time 08:18 Visit Stop Time 09:00 Total Visit Minutes 42 Visit Number 7 Number of GRAIN TRIMMER Visits 0 Evaluation Information Evaluation Date 12/05/18 Precautions Precautions Recent CA history and multiple cancer history (tongue, prostate, bladder), L TKA, hernia repair, history of chronic trochanteric bursitis, DVT history of L lower leg. L leg measures long. PT-OP-B Current Condition Start: 12/05/18 12:37 Freq: Status: Active Protocol: Document 12/05/18 13:50 LRN (Rec: 12/05/18 14:57 LRN [id number]) Current Condition History of Current Condition Onset Date 6 months ago Current Complaints Feels weak in both legs. Going up/down stairs and hiking, occ R knee pn History of Current Condition L TKA 6 yrs ago (age 72), recovered well except L leg was weak compared to the R leg . Last year was having problems with the R hip and Piriformis with increased stiffness of mobility. He reports slight R hip pain, and with hiking has R knee pain ( intermittent 4-5/10), at end of hikes his pain becomes an ache at a level of 2/10. He states he can live with the ache and an occasional sharp pain, but pain is too noticeable at this time. Prior Treatments and Tests Physical therapy for R hip pain @ [facility]. Future Testing and Treatments Planned None Developmental History Developmental History Last year had therapy with [facility] due to R hip pain. He had gained mobility and had pain relief. L TKA rehab at [place] [facility]. Treatment Goals Patient/Caregiver Goals Wants ex and stretches to build up muscle so he can continue hiking, doing yoga ( with as much range as possible ). L knee ROM was after finishing therapy at [place] [facility]: -3 - 125 deg's. Prior Functional Status Baseline Function- ADL's Independent Baseline Function- Mobility Independent Baseline Function- Recreation/Hobbies Without difficulty: Stepping over roots and rocks, going up /down slick rocks, climbing down roots. Current Functional Impairments (Reported) Functional Limitations- ADL's Balance: Pt reports: Can't stand SLS on L left leg, but can on the right. Functional Limitations- Mobility/Gait Hikes trails once per week, 2 hours. Has occasional difficulty & pain with: stepping over roots and rocks, going up/down slick rocks, climbing down roots. Personal Factors Other Personal Factors That May Effect Hx of Bladder CA, 2 surgeries Therapy/Recovery (10 yrs ago was most recent), treated for prostate cancer early this year with radiation program completed, CA of tongue - 2 yrs ago. L TKA - 6 yrs ago, hernia repair - 6 yrs ago, history of chronic trochanteric bursitis, DVT history of L lower leg. PT-OP-C Subjective Start: 12/05/18 12:37 Freq: Status: Active Protocol: Document 12/25/18 08:18 LRN (Rec: 12/25/18 09:03 LRN [id number]) OP-PT Subjective Patient Comments Patient Comments States he is getting too many ex's that hes not sure what he should be doing. States he is hiking without pain and yoga positions although difficult are more tolerable. PT-OP-G Mobility & Gait Start: 12/05/18 12:37 Freq: Status: Active Protocol: Document 12/05/18 13:50 LRN (Rec: 12/05/18 14:57 LRN [id number]) Stair Climbing Evaluation Comments Stair Climbing Comments Normal no need for assist PT-OP-J Posture/Palpation/Skin Start: 12/05/18 12:37 Freq: Status: Active Protocol: Document 12/05/18 13:50 LRN (Rec: 12/05/18 17:13 LRN [id number]) Posture Evaluation Comments Posture Comments Standing: L foot in ER, discoloration of L lower leg wearing compression stocking ( L only), trunk shift R, L shoulder and scapula is low, L arm held in mild ABD, L nipple low, head forward, L PSIS is posterior, R rotated and elevated, R innominate is mildly anteriorly rotated, calcaneal valgus bilaterally, pes cavus bilaterally. Palpation Assessment Location Leg length Palpation Location ASIS > Medial malleolus Palpation Details L le cm R leg 98.8 cm R medial knee Palpation Location R medial joint line of knee Palpation Findings None/Normal Palpation Details Supine with knee extended and 45 degree flexed. IT Band Palpation Location Mid thigh IT Band Palpation Findings Soft Tissue Tightness, Tenderness PT-OP-K Range of Motion Start: 12/05/18 12:37 Freq: Status: Active Protocol: Document 12/25/18 08:18 LRN (Rec: 12/25/18 09:03 LRN [id number]) Knee Goniometric Range of Motion Knee Right Knee ROM WFL Yes Patient Position Supine Flexion Active (degrees) 128 Hyper-Extension Active 3 Left Knee ROM WFL No Patient Position Supine Flexion Active (degrees) 123 Hyper-Extension Active 2 PT-OP-L Special Tests Start: 12/05/18 12:37 Freq: Status: Active Protocol: Document 12/05/18 13:50 LRN (Rec: 12/05/18 17:13 LRN [id number]) Special Tests Knee Special Tests Jovan Test Test Results R knee: negative Comments Pt had pain in lateral R knee with testing of medial side and lateral side of the knee. Pain is primarily on compression of the lateral knee joint. Patellar Grind Test Test Results R knee: positive Comments Pain at knee with compression. Neural Special Tests- Lower Body Sciatic Nerve Tension Test Results negative biliaterally Comments PSLR is 80 deg's bilaterally PT-OP-M Strength Start: 12/05/18 12:37 Freq: Status: Active Protocol: Document 12/25/18 08:18 LRN (Rec: 12/25/18 12:12 LRN [id number]) Trunk Strength Trunk Manual Muscle Testing Testing Position Supine Core Stabilization Pt lacks core stabilization with hip flexion MMT on R. PT-OP-Q Treatments Start: 12/05/18 12:37 Freq: Status: Active Protocol: Document 12/25/18 08:18 LRN (Rec: 12/25/18 09:03 LRN [id number]) Gym Equipment Cable Column (Body Solid) Leg Curl Details Focus on Pelvis (ASIS check) in neutral Resistance 40# Reps/Time 10x 3 Leg Extension Details Focus on Pelvis (ASIS check) in neutral Resistance 30# Reps/Time 10x 3 Hip Adduction Details Focus on Core stability, Seat back 0 holes Resistance 40# Reps/Time 10 reps x 3 Hip Abduction Details Focus on Core stability, Seat back 0 holes Resistance 40# Reps/Time 10 reps x 3 Therapeutic Exercises Supine Exercises Bridging Supine Exercise Name Bridging Side bilateral Reps/Minutes 15x Comments double 1x10, single (L) 2x10 reps Iliopsoas stretch Side bilateral Reps/Minutes 2 min Manual Therapy Treatment Soft Tissue Mobilization TFL/IT-Band Body Location TFL/IT Band Mobilization Type Strumming Intensity/Depth Superficial Body Position Supine Comments No tenderness noted. Self-Care/Home Management Treatment Education Patient Education Home Exercise Program Activities Self-Care/Home Management Activities I/S pt in standing trunk rot R or pelvic rot L. PT-OP-T Assessment and Plan Start: 12/05/18 12:37 Freq: Status: Active Protocol: Document 12/25/18 08:18 LRN (Rec: 12/25/18 09:03 LRN [id number]) Physical Therapy Assessment Goals Four Impairment R knee pain with stepping over objects Short Term Goal (STG) Pt will be educated in proper body mechanics STG Duration 01/16/19 GOAL MET Clock And Watch Assembler Goal (LTG) Pt will be able to step over rocks and roots while hiking without pain. LTG Duration 12/25/18: GOAL MET. Three Impairment Decr hip & knee mobility limiting ability to maintain health through yoga Short Term Goal (STG) Pt will be able to obtain symmetry in hip mobility and decrease asymmetry of knee flexion in order to improve painfree mobility with descending roots while hiking. STG Duration 01/16/19 Clock And Watch Assembler Goal (LTG) Pt will be able to improve hip and knee mobility to make sitting on the floor for yoga exercise tolerable. Pt will return to yoga exercise. LTG Duration 02/03/19 (12/25/18: GOAL PARTIALLY MET:Pt can sit on floor, isn't in yoga) Two Impairment LE and core weakness Short Term Goal (STG) Improve LE strength to 5/5 bilaterally of the hips (R flexors, L extensors & Adductors) and knees (R hamstrings). STG Duration 01/16/19 Clock And Watch Assembler Goal (LTG) Pt will be able to maintain core stability when resistance is applied to LE's. LTG Duration 02/03/19 One Impairment Pt lacks appropriate self care HEP. Halfway Goal (LTG) Pt will be independent in a self care HEP. Wants ex and stretches to build up muscle so he can continue hiking, doing yoga ( with as much range as possible ). L knee ROM was after finishing therapy at [place] [facility]: -3 - 125 deg's. LTG Duration 02/03/19 (12/25/18: Progressing) Assessment Summary Assessment Improved L knee mobility, pt able to hike without pain. Mild loss of trunk control with testing of hip flex. Pt able to position in yoga poses with less difficulty overall. Pt had pelvic symmetry today in standing and supine. Needs HEP for knee ROM, primarily flexion. Physical Therapy Plan Frequency and Duration Frequency of Treatment 2x/Week Plan of Care Start Date 12/05/18 Plan of Care End Date 02/03/19 Next Visit Focus/Plan Next Note Type Treatment Note Next Visit Plan Issue HEP for knee flex stretch and QS stretch into extension. Check SLS, focus on improving mobility for pt to have greater tolerance to yoga positioning, and progress ankle DF ROM(L) and strengthening bilaterally. Add trunk R rot or pelvic L rot strengthening. Cont L TKA knee flex exer. Monitor pelvic symmetry for need of L single bridge with or without R hip flexion. Progress core/ pelvic stab with LE strengthening (R hip flex/knee ext or L hip ext/knee flex). Assess LE strength and core stability in 1 week. Expect pt will be ready for DC to HEP in 2 weeks.
--- NOTE | 2018-12-27 11:15 | PT.OTN ---
Current Diagnoses Lesion of sciatic nerve, unspecified lower limb (12/27/18) Pain in right knee (12/27/18) Physical Therapy Treatment Note PT-OP-A Visit Information Start: 12/05/18 12:37 Freq: Status: Active Protocol: Document 12/27/18 10:35 SP (Rec: 12/27/18 11:24 SP [id number]) Out-Patient Physical Therapy Visit Information Visit Information Visit Type Treatment Note Visit Start Time 10:35 Visit Stop Time 11:15 Total Visit Minutes 40 Visit Number 8 Number of CASTING CHIPPER Visits 1 PT-OP-B Current Condition Start: 12/05/18 12:37 Freq: Status: Active Protocol: Document 12/05/18 13:50 LRN (Rec: 12/05/18 14:57 LRN [id number]) Current Condition History of Current Condition Onset Date 6 months ago Current Complaints Feels weak in both legs. Going up/down stairs and hiking, occ R knee pn History of Current Condition L TKA 6 yrs ago (age 72), recovered well except L leg was weak compared to the R leg . Last year was having problems with the R hip and Piriformis with increased stiffness of mobility. He reports slight R hip pain, and with hiking has R knee pain ( intermittent 4-5/10), at end of hikes his pain becomes an ache at a level of 2/10. He states he can live with the ache and an occasional sharp pain, but pain is too noticeable at this time. Prior Treatments and Tests Physical therapy for R hip pain @ [facility]. Future Testing and Treatments Planned None Developmental History Developmental History Last year had therapy with [facility] due to R hip pain. He had gained mobility and had pain relief. L TKA rehab at [place] [facility]. Treatment Goals Patient/Caregiver Goals Wants ex and stretches to build up muscle so he can continue hiking, doing yoga ( with as much range as possible ). L knee ROM was after finishing therapy at [place] [facility]: -3 - 125 deg's. Prior Functional Status Baseline Function- ADL's Independent Baseline Function- Mobility Independent Baseline Function- Recreation/Hobbies Without difficulty: Stepping over roots and rocks, going up /down slick rocks, climbing down roots. Current Functional Impairments (Reported) Functional Limitations- ADL's Balance: Pt reports: Can't stand SLS on L left leg, but can on the right. Functional Limitations- Mobility/Gait Hikes trails once per week, 2 hours. Has occasional difficulty & pain with: stepping over roots and rocks, going up/down slick rocks, climbing down roots. Personal Factors Other Personal Factors That May Effect Hx of Bladder CA, 2 surgeries Therapy/Recovery (10 yrs ago was most recent), treated for prostate cancer early this year with radiation program completed, CA of tongue - 2 yrs ago. L TKA - 6 yrs ago, hernia repair - 6 yrs ago, history of chronic trochanteric bursitis, DVT history of L lower leg. PT-OP-C Subjective Start: 12/05/18 12:37 Freq: Status: Active Protocol: Document 12/27/18 10:35 SP (Rec: 12/27/18 11:24 SP [id number]) OP-PT Subjective Patient Comments Patient Comments Pt stated no pain, able to get down on the floor to perform yoga, able to hike and step over branches /objects with less knee pain, noticing good gains. PT-OP-G Mobility & Gait Start: 12/05/18 12:37 Freq: Status: Active Protocol: Document 12/05/18 13:50 LRN (Rec: 12/05/18 14:57 LRN [id number]) Stair Climbing Evaluation Comments Stair Climbing Comments Normal no need for assist PT-OP-J Posture/Palpation/Skin Start: 12/05/18 12:37 Freq: Status: Active Protocol: Document 12/05/18 13:50 LRN (Rec: 12/05/18 17:13 LRN [id number]) Posture Evaluation Comments Posture Comments Standing: L foot in ER, discoloration of L lower leg wearing compression stocking ( L only), trunk shift R, L shoulder and scapula is low, L arm held in mild ABD, L nipple low, head forward, L PSIS is posterior, R rotated and elevated, R innominate is mildly anteriorly rotated, calcaneal valgus bilaterally, pes cavus bilaterally. Palpation Assessment Location Leg length Palpation Location ASIS > Medial malleolus Palpation Details L le cm R leg 98.8 cm R medial knee Palpation Location R medial joint line of knee Palpation Findings None/Normal Palpation Details Supine with knee extended and 45 degree flexed. IT Band Palpation Location Mid thigh IT Band Palpation Findings Soft Tissue Tightness, Tenderness PT-OP-K Range of Motion Start: 12/05/18 12:37 Freq: Status: Active Protocol: Document 12/27/18 10:35 SP (Rec: 12/27/18 11:31 SP [id number]) Hip Goniometric Range of Motion Hip Right Passive Testing Position Supine Flexion w/Knee Flexed 136 Straight Leg Raise 95 Abduction 60 Internal Rotation 42 External Rotation 70 Left Passive Testing Position Supine Flexion w/Knee Flexed 130 Straight Leg Raise 90 Abduction 60 Internal Rotation 40 External Rotation 85 Knee Goniometric Range of Motion Knee Right Knee ROM WFL Yes Patient Position Supine Flexion Active (degrees) 138 Hyper-Extension Active 2 Left Knee ROM WFL No Patient Position Supine Flexion Active (degrees) 123 Hyper-Extension Active 2 PT-OP-L Special Tests Start: 12/05/18 12:37 Freq: Status: Active Protocol: Document 12/05/18 13:50 LRN (Rec: 12/05/18 17:13 LRN [id number]) Special Tests Knee Special Tests Jovan Test Test Results R knee: negative Comments Pt had pain in lateral R knee with testing of medial side and lateral side of the knee. Pain is primarily on compression of the lateral knee joint. Patellar Grind Test Test Results R knee: positive Comments Pain at knee with compression. Neural Special Tests- Lower Body Sciatic Nerve Tension Test Results negative biliaterally Comments PSLR is 80 deg's bilaterally PT-OP-M Strength Start: 12/05/18 12:37 Freq: Status: Active Protocol: Document 12/27/18 10:35 SP (Rec: 12/27/18 11:35 SP [id number]) Hip Strength Hip Manual Muscle Testing Right Flexion (L2) 4- Good- Extension (S1) 5 Normal Abduction 5 Normal Adduction 5 Normal Comments 12/27/18 patient increased 3/5 hip flexion gains RLE to 4-/5 . Left Flexion (L2) 5 Normal Extension (S1) 5 Normal Abduction 5 Normal Adduction 5 Normal Knee Strength Knee Manual Muscle Testing Right Flexion (S2) 5 Normal Extension (L3) 5 Normal Comments Medial hamstring improved 4+/5 to 5/5. Left Reason Not Measured WFL Ankle/Foot Strength Ankle and Foot Manual Muscle Testing Right Dorsiflexion (L4) 5 Normal Plantarflexion (S1) 5 Normal Left Dorsiflexion (L4) 5 Normal Plantarflexion (S1) 5 Normal Inversion 4+ Good+ Eversion (S1) 4+ Good+ Comments Did not reassess IV/EV today 12/27/18. PT-OP-Q Treatments Start: 12/05/18 12:37 Freq: Status: Active Protocol: Document 12/27/18 10:35 SP (Rec: 12/27/18 11:24 SP [id number]) Cardio Equipment Recumbent Bicycle Duration (Minutes) 6 Resistance 4 Gym Equipment Cable Column (Body Solid) Leg Curl Details Focus on Pelvis (ASIS check) in neutral Resistance 40# Reps/Time 15 x3 Leg Extension Details Focus on Pelvis (ASIS check) in neutral Resistance 30# Reps/Time 15 x 3 Therapeutic Exercises Supine Exercises Hamstring/LE neural stretch Supine Exercise Name HS Side bilateral Equipment Used strap Reps/Minutes 30 x3 Comments med/lat/whole Piriformis stretch Supine Exercise Name Piriformis stretch Side left Reps/Minutes 5' Comments Extra time taken for review Sidelying Exercises TFL stretch Sidelying Exercise Name Leg off table for TFL stretch Side bilateral Reps/Minutes 1-2 min Comments increase to tolerance and benefit PT-OP-T Assessment and Plan Start: 12/05/18 12:37 Freq: Status: Active Protocol: Document 12/27/18 10:35 SP (Rec: 12/27/18 11:24 SP [id number]) Physical Therapy Assessment Goals Four Impairment R knee pain with stepping over objects Short Term Goal (STG) Pt will be educated in proper body mechanics STG Duration 01/16/19 GOAL MET [employer] Goal (LTG) Pt will be able to step over rocks and roots while hiking without pain. LTG Duration 12/25/18: GOAL MET. Three Impairment Decr hip & knee mobility limiting ability to maintain health through yoga Short Term Goal (STG) Pt will be able to obtain symmetry in hip mobility and decrease asymmetry of knee flexion in order to improve painfree mobility with descending roots while hiking. STG Duration 01/16/19 [facility] [employer] Goal (LTG) Pt will be able to improve hip and knee mobility to make sitting on the floor for yoga exercise tolerable. Pt will return to yoga exercise. LTG Duration 02/03/19 (12/25/18: GOAL PARTIALLY MET:Pt can sit on floor, isn't in yoga) Two Impairment LE and core weakness Short Term Goal (STG) Improve LE strength to 5/5 bilaterally of the hips (R flexors, L extensors & Adductors) and knees (R hamstrings). STG Duration 01/16/19 Retirement Goal (LTG) Pt will be able to maintain core stability when resistance is applied to LE's. LTG Duration 02/03/19: (12/27/18 GOAL MET) One Impairment Pt lacks appropriate self care HEP. [facility] [employer] Goal (LTG) Pt will be independent in a self care HEP. Wants ex and stretches to build up muscle so he can continue hiking, doing yoga ( with as much range as possible ). L knee ROM was after finishing therapy at [place] [facility]: -3 - 125 deg's. LTG Duration 02/03/19 (12/27/18 goal met) Assessment Summary Assessment Completed ROM and MMT measurements, updated progress with goals. Pt made gains in strength and ROM(flexibility): RLE gained 3* hip flexion, 15 * SLR, 20* ABD, 8* IR, 5* ER. LLE gained 10* SLR, 22* ABD, 5 * IR. R knee gaied 13* knee flexion, 1* extension. Reviewed gym and current stretching HEP. Patient reported feels like good understanding of HEP with noted demonstration of proper form and mechanics. Pt demonstrated improved pelvic alignment during gym equipment and able to increase reps to 3x15 with same resistance. Educated can perform up to 20 reps before increase weight. See plan for HEP suggestions requested end of last tx that didn't get to today. Pt reported feels pretty good and no pain, am alot more flexible, pleased with progress. Physical Therapy Plan Frequency and Duration Frequency of Treatment 2x/Week Plan of Care Start Date 12/05/18 Plan of Care End Date 02/03/19 Therapeutic Interventions Therapeutic Interventions Balance Training,Home Exercise Program,Manual Therapy, Neuromuscular Re-education, Patient/Caregiver Education, Self-Care/Home Management,Soft Tissue Mobilization,Taping, Therapeutic Exercises Modalities Cold Pack/Ice Massage, Ultrasound Next Visit Focus/Plan Next Note Type Treatment Note Next Visit Plan Next Tx ADD Issue HEP for knee flex stretch and QS stretch into extension, progress ankle DF ROM(L) and strengthening bilaterally. Add trunk R rot or pelvic L rot strengthening, complete discharge summary with PT.
--- NOTE | 2019-01-01 16:15 | PT.OTN ---
Current Diagnoses Lesion of sciatic nerve, unspecified lower limb (01/01/19) Pain in right knee (01/01/19) Physical Therapy Treatment Note PT-OP-A Visit Information Start: 12/05/18 12:37 Freq: Status: Active Protocol: Document 01/01/19 08:18 LRN (Rec: 01/01/19 09:15 LRN [id number]) Out-Patient Physical Therapy Visit Information Visit Information Visit Type Discharge Summary Visit Start Time 08:18 Visit Stop Time 09:02 Total Visit Minutes 44 Visit Number 9 Number of TRANSFORMER MECHANIC Visits 0 Evaluation Information Evaluation Date 12/05/18 Precautions Precautions Recent CA history and multiple cancer history (tongue, prostate, bladder), L TKA, hernia repair, history of chronic trochanteric bursitis, DVT history of L lower leg. L leg measures long. PT-OP-B Current Condition Start: 12/05/18 12:37 Freq: Status: Active Protocol: Document 12/05/18 13:50 LRN (Rec: 12/05/18 14:57 LRN [id number]) Current Condition History of Current Condition Onset Date 6 months ago Current Complaints Feels weak in both legs. Going up/down stairs and hiking, occ R knee pn History of Current Condition L TKA 6 yrs ago (age 72), recovered well except L leg was weak compared to the R leg . Last year was having problems with the R hip and Piriformis with increased stiffness of mobility. He reports slight R hip pain, and with hiking has R knee pain ( intermittent 4-5/10), at end of hikes his pain becomes an ache at a level of 2/10. He states he can live with the ache and an occasional sharp pain, but pain is too noticeable at this time. Prior Treatments and Tests Physical therapy for R hip pain @ [facility]. Future Testing and Treatments Planned None Developmental History Developmental History Last year had therapy with [facility] due to R hip pain. He had gained mobility and had pain relief. L TKA rehab at [place] [facility]. Treatment Goals Patient/Caregiver Goals Wants ex and stretches to build up muscle so he can continue hiking, doing yoga ( with as much range as possible ). L knee ROM was after finishing therapy at [place] [facility]: -3 - 125 deg's. Prior Functional Status Baseline Function- ADL's Independent Baseline Function- Mobility Independent Baseline Function- Recreation/Hobbies Without difficulty: Stepping over roots and rocks, going up /down slick rocks, climbing down roots. Current Functional Impairments (Reported) Functional Limitations- ADL's Balance: Pt reports: Can't stand SLS on L left leg, but can on the right. Functional Limitations- Mobility/Gait Hikes trails once per week, 2 hours. Has occasional difficulty & pain with: stepping over roots and rocks, going up/down slick rocks, climbing down roots. Personal Factors Other Personal Factors That May Effect Hx of Bladder CA, 2 surgeries Therapy/Recovery (10 yrs ago was most recent), treated for prostate cancer early this year with radiation program completed, CA of tongue - 2 yrs ago. L TKA - 6 yrs ago, hernia repair - 6 yrs ago, history of chronic trochanteric bursitis, DVT history of L lower leg. PT-OP-C Subjective Start: 12/05/18 12:37 Freq: Status: Active Protocol: Document 01/01/19 08:18 LRN (Rec: 01/01/19 09:15 LRN [id number]) OP-PT Subjective Patient Comments Patient Comments States he is doing well. PT-OP-G Mobility & Gait Start: 12/05/18 12:37 Freq: Status: Active Protocol: Document 12/05/18 13:50 LRN (Rec: 12/05/18 14:57 LRN [id number]) Stair Climbing Evaluation Comments Stair Climbing Comments Normal no need for assist PT-OP-J Posture/Palpation/Skin Start: 12/05/18 12:37 Freq: Status: Active Protocol: Document 12/05/18 13:50 LRN (Rec: 12/05/18 17:13 LRN [id number]) Posture Evaluation Comments Posture Comments Standing: L foot in ER, discoloration of L lower leg wearing compression stocking ( L only), trunk shift R, L shoulder and scapula is low, L arm held in mild ABD, L nipple low, head forward, L PSIS is posterior, R rotated and elevated, R innominate is mildly anteriorly rotated, calcaneal valgus bilaterally, pes cavus bilaterally. Palpation Assessment Location Leg length Palpation Location ASIS > Medial malleolus Palpation Details L le cm R leg 98.8 cm R medial knee Palpation Location R medial joint line of knee Palpation Findings None/Normal Palpation Details Supine with knee extended and 45 degree flexed. IT Band Palpation Location Mid thigh IT Band Palpation Findings Soft Tissue Tightness, Tenderness PT-OP-K Range of Motion Start: 12/05/18 12:37 Freq: Status: Active Protocol: Document 12/27/18 10:35 SP (Rec: 12/27/18 11:31 SP [id number]) Hip Goniometric Range of Motion Hip Right Passive Testing Position Supine Flexion w/Knee Flexed 136 Straight Leg Raise 95 Abduction 60 Internal Rotation 42 External Rotation 70 Left Passive Testing Position Supine Flexion w/Knee Flexed 130 Straight Leg Raise 90 Abduction 60 Internal Rotation 40 External Rotation 85 Knee Goniometric Range of Motion Knee Right Knee ROM WFL Yes Patient Position Supine Flexion Active (degrees) 138 Hyper-Extension Active 2 Left Knee ROM WFL No Patient Position Supine Flexion Active (degrees) 123 Hyper-Extension Active 2 PT-OP-L Special Tests Start: 12/05/18 12:37 Freq: Status: Active Protocol: Document 12/05/18 13:50 LRN (Rec: 12/05/18 17:13 LRN [id number]) Special Tests Knee Special Tests Jovan Test Test Results R knee: negative Comments Pt had pain in lateral R knee with testing of medial side and lateral side of the knee. Pain is primarily on compression of the lateral knee joint. Patellar Grind Test Test Results R knee: positive Comments Pain at knee with compression. Neural Special Tests- Lower Body Sciatic Nerve Tension Test Results negative biliaterally Comments PSLR is 80 deg's bilaterally PT-OP-M Strength Start: 12/05/18 12:37 Freq: Status: Active Protocol: Document 12/27/18 10:35 SP (Rec: 12/27/18 11:35 SP [id number]) Hip Strength Hip Manual Muscle Testing Right Flexion (L2) 4- Good- Extension (S1) 5 Normal Abduction 5 Normal Adduction 5 Normal Comments 12/27/18 patient increased 3/5 hip flexion gains RLE to 4-/5 . Left Flexion (L2) 5 Normal Extension (S1) 5 Normal Abduction 5 Normal Adduction 5 Normal Knee Strength Knee Manual Muscle Testing Right Flexion (S2) 5 Normal Extension (L3) 5 Normal Comments Medial hamstring improved 4+/5 to 5/5. Left Reason Not Measured WFL Ankle/Foot Strength Ankle and Foot Manual Muscle Testing Right Dorsiflexion (L4) 5 Normal Plantarflexion (S1) 5 Normal Left Dorsiflexion (L4) 5 Normal Plantarflexion (S1) 5 Normal Inversion 4+ Good+ Eversion (S1) 4+ Good+ Comments Did not reassess IV/EV today 12/27/18. PT-OP-Q Treatments Start: 12/05/18 12:37 Freq: Status: Active Protocol: Document 01/01/19 08:18 LRN (Rec: 01/01/19 09:15 LRN [id number]) Cardio Equipment Bicycle (Upright) Duration (Minutes) 10 Resistance 4 Seat Position 9 Therapeutic Exercises Supine Exercises Ralph heel slides Supine Exercise Name L knee flexion stretch f/b active stretch Side left Hamstring/LE neural stretch Supine Exercise Name HS Side bilateral Equipment Used strap Reps/Minutes 30 x3 Comments med/lat/whole Piriformis stretch Supine Exercise Name Piriformis stretch Side left Reps/Minutes 5' Comments Extra time taken for review Standing Exercises Anterior Tib stretch Standing Exercise Name Anterior Tib stretch f/b active stretch (heel raise) Side bilateral Reps/Minutes 2 cycles of each Gastroc/Soleus stretch Standing Exercise Name Gastroc stretch f/b active stretch DF x 10 Side bilateral Reps/Minutes 2 cycles Neuro Re-Education Treatment Balance Activities Double leg stance Details On foam, EO/EC Tandem & Semi-tandem Details Arms across chest Surface LEVEL SLS Details Arms at chest, leg static & w/ mvmt Surface level Reps/Duration 8' Comments SLS: 3 sec left, 51 sec right . Self-Care/Home Management Treatment Education Patient Education Home Exercise Program Activities Self-Care/Home Management Activities Issued & reviewed HEP: Ankle DF/PF stretch f/b active stretch; Stretch into knee flex/ & ext, and Balance ex's in corner. PT-OP-T Assessment and Plan Start: 12/05/18 12:37 Freq: Status: Active Protocol: Document 01/01/19 08:18 LRN (Rec: 01/01/19 09:15 LRN [id number]) Physical Therapy Assessment Goals Four Impairment R knee pain with stepping over objects Short Term Goal (STG) Pt will be educated in proper body mechanics STG Duration 01/16/19 GOAL MET [facility] Goal (LTG) Pt will be able to step over rocks and roots while hiking without pain. LTG Duration 12/25/18: GOAL MET. Three Impairment Decr hip & knee mobility limiting ability to maintain health through yoga Short Term Goal (STG) Pt will be able to obtain symmetry in hip mobility and decrease asymmetry of knee flexion in order to improve painfree mobility with descending roots while hiking. STG Duration 01/16/19 (12/27/18: Goal Partially met, mild asymetry @ hips) [facility] Goal (LTG) Pt will be able to improve hip and knee mobility to make sitting on the floor for yoga exercise tolerable. Pt will return to yoga exercise. LTG Duration 02/03/19 (01/01/19: GOAL MET: Pt has returned to yoga) Two Impairment LE and core weakness Short Term Goal (STG) Improve LE strength to 5/5 bilaterally of the hips (R flexors, L extensors & Adductors) and knees (R hamstrings). STG Duration 01/16/19 (01/01/19: Goal partially met. R hip flex is 4-/5) Washing Machine Operator Goal (LTG) Pt will be able to maintain core stability when resistance is applied to LE's. LTG Duration 02/03/19: (12/27/18 GOAL MET) One Impairment Pt lacks appropriate self care HEP. [facility] Goal (LTG) Pt will be independent in a self care HEP. Wants ex and stretches to build up muscle so he can continue hiking, doing yoga ( with as much range as possible ). L knee ROM was after finishing therapy at [place] [facility]: -3 - 125 deg's. LTG Duration 02/03/19 (12/27/18: GOAL MET. ) Assessment Summary Assessment Pt has done very well with therapy. He has resolution of his R hip pain and returned to baseline activities. He has mild hip & knee mobility restrictions and is slightly weaker on the right with hip flexion. LEFS score is 55/80, 20%<40% impairment (initially was 63% impairment). The pt has decreased balance of his RLE. He has been placed on a HEP to work towards improvement in these areas. Thank you for your referral. Physical Therapy Plan Frequency and Duration Plan of Care Start Date 12/05/18 Plan of Care End Date 02/03/19 Discharge Physical Therapy Discharge Reasons Goals Met Discharge Comments Pt has been placed on an independent HEP. Thank you for your referral. Next Visit Focus/Plan Next Note Type Treatment Note
== END 2019-01-01 10:56 | disposition home or self-care (01) ==
LOC: PHYS 08:15
PROVIDERS: PCP Student in an Organized Health Care Education/Training Program; Visit Provider Student in an Organized Health Care Education/Training Program
DX: M25.561 Pain in right knee (principal); G57.00 Lesion of sciatic nerve, unspecified lower limb
CPT/HCPCS: 95851; 97110; 97112; 97140; 97162; 97535

== ENCOUNTER → 2019-03-15 15:26 | Outpatient (CLI) | payer OTHER, SELFPAY ==
[2019-03-15 16:41] LABS: BUN Creatinine Ratio 23.8 (6-22); Blood Urea Nitrogen 19 mg/dL (9-20); Calcium 9.5 mg/dL (8.4-10.2); Carbon Dioxide 28 mmol/L (22-32); Chloride 104 mmol/L (98-107); Cholesterol 223 mg/dL (140-199); Estimated Glomerular Filt Rate > 60.0 mL/min (>60); Glucose 89 mg/dL (80-110); HDL Cholesterol 56 mg/dL (40-60); HEMOLYSIS < 15 (0-50); LDL Cholesterol Calculated 127 mg/dL (<100); Potassium 4.5 mmol/L (3.4-5.1); Sodium 139 mmol/L (137-145); Triglycerides 201 mg/dL (35-150)
== END ==
PROVIDERS: PCP Student in an Organized Health Care Education/Training Program; Referring Provider Student in an Organized Health Care Education/Training Program; Visit Provider Student in an Organized Health Care Education/Training Program
DX: G57.00 Lesion of sciatic nerve, unspecified lower limb (principal); Z79.1 Long term (current) use of non-steroidal anti-inflammatories (NSAID); E78.00 Pure hypercholesterolemia, unspecified; Z79.899 Other long term (current) drug therapy
CPT/HCPCS: 36415; 80048; 80061

== ENCOUNTER → 2019-10-11 09:57 | Outpatient (CLI) | payer OTHER, SELFPAY | PROVIDERS: PCP Student in an Organized Health Care Education/Training Program; Referring Provider Radiology Radiation Oncology; Visit Provider Radiology Radiation Oncology | DX: C61 Malignant neoplasm of prostate (principal) | CPT/HCPCS: 36415; 84153 ==

== ENCOUNTER → 2020-01-01 07:58 | Outpatient (CLI) | payer OTHER, SELFPAY ==
[2020-01-01 10:27] LABS: Prostate Specific Antigen 0.165 ng/mL (0.10-4.00)
== END ==
PROVIDERS: PCP Student in an Organized Health Care Education/Training Program; Referring Provider Urology; Visit Provider Urology
DX: C61 Malignant neoplasm of prostate (principal)
CPT/HCPCS: 36415; 84153

== ENCOUNTER → 2020-03-20 07:27 | Outpatient (CLI) | payer OTHER, SELFPAY ==
[2020-03-20 07:32] LABS: Bacteria Urine None Seen
[2020-03-20 08:27] LABS: Hematocrit 46.5 % (41-53); Hemoglobin 14.9 g/dL (13.5-17.5); Mean Corpuscular HGB Conc 32.1 % (30-36); Mean Corpuscular Hemoglobin 28.3 PG (26-34); Mean Corpuscular Volume 88.2 fL (80-100); Platelet Count 110 X10^3/uL (150-400); Red Blood Cell Count 5.27 X10^6/uL (4.5-5.9); White Blood Cell Count 4.6 X10^3/uL (4.5-11.0)
[2020-03-20 08:36] LABS: Appearance Urine UA CLEAR; Bilirubin Urine UA NEGATIVE (NEGATIVE); Color Urine UA YELLOW; Glucose Urine UA NEGATIVE (Negative); Ketones Urine UA NEGATIVE (NEGATIVE); Leukocyte Esterase Urine UA NEGATIVE (NEGATIVE); Nitrite Urine UA NEGATIVE (Negative); Occult Blood Urine UA 1+ (Negative); Protein Urine UA NEGATIVE (Negative); Specific Gravity Urine UA 1.025 (1.000-1.035); Urobilinogen Urine UA 0.2 E.U./dL (0.2)
[2020-03-20 08:51] LABS: RBC Urine 5-10/HPF (0-5/HPF); Squamous Epithelial Cell Urine 0-1 /HPF (0-5/HPF); WBC Urine 5-10/HPF (0-5/HPF)
[2020-03-20 08:58] LABS: BUN Creatinine Ratio 21.7 (6-22); Blood Urea Nitrogen 20 mg/dL (9-20); Calcium 9.2 mg/dL (8.4-10.2); Carbon Dioxide 32 mmol/L (22-32); Chloride 104 mmol/L (98-107); Estimated Glomerular Filt Rate > 60.0 mL/min (>60); Glucose 94 mg/dL (80-110); HEMOLYSIS < 15 (0-50); Sodium 137 mmol/L (137-145)
[2020-03-20 09:26] LABS: TSH w/ Reflex to FT4 0.98 uIU/mL (0.47-4.68)
== END ==
PROVIDERS: PCP Student in an Organized Health Care Education/Training Program; Referring Provider Student in an Organized Health Care Education/Training Program; Visit Provider Student in an Organized Health Care Education/Training Program
DX: I10 Essential (primary) hypertension (principal)
CPT/HCPCS: 36415; 80048; 81001; 84443; 85027

== ENCOUNTER → 2020-06-06 08:31 | Outpatient (CLI) | payer OTHER, SELFPAY ==
[2020-06-06 11:08] LABS: Prostate Specific Antigen 0.248 ng/mL (0.10-4.00)
== END ==
PROVIDERS: PCP Student in an Organized Health Care Education/Training Program; Referring Provider Radiology Radiation Oncology; Visit Provider Radiology Radiation Oncology
DX: C61 Malignant neoplasm of prostate (principal)
CPT/HCPCS: 36415; 84153

== ENCOUNTER → 2020-12-18 11:26 | Outpatient (CLI) | payer OTHER, SELFPAY ==
[2020-12-18 13:39] LABS: Prostate Specific Antigen 0.285 ng/mL (0.10-4.00)
== END ==
PROVIDERS: PCP Student in an Organized Health Care Education/Training Program; Referring Provider Urology; Visit Provider Urology
DX: C61 Malignant neoplasm of prostate (principal)
CPT/HCPCS: 36415; 84153

== ENCOUNTER → 2021-06-19 08:31 | Outpatient (CLI) | payer OTHER, SELFPAY ==
[2021-06-19 10:54] LABS: Prostate Specific Antigen 0.277 ng/mL (0.10-4.00)
== END ==
PROVIDERS: PCP Student in an Organized Health Care Education/Training Program; Referring Provider Radiology Radiation Oncology; Visit Provider Radiology Radiation Oncology
DX: C61 Malignant neoplasm of prostate (principal)
CPT/HCPCS: 36415; 84153

== ENCOUNTER → 2021-07-22 14:14 | Outpatient (CLI) | payer OTHER, SELFPAY | PROVIDERS: PCP Student in an Organized Health Care Education/Training Program; Visit Provider Physician Assistant | DX: L08.9 Local infection of the skin and subcutaneous tissue, unspecified (principal) | CPT/HCPCS: 87070; 87075; 87077; 87205 ==

== ENCOUNTER → 2021-12-04 08:32 | Outpatient (CLI) | payer OTHER, SELFPAY ==
[2021-12-04 10:33] LABS: BUN Creatinine Ratio 20.9 (6-22); Blood Urea Nitrogen 19 mg/dL (9-20); Calcium 9.1 mg/dL (8.4-10.2); Carbon Dioxide 25 mmol/L (22-32); Chloride 105 mmol/L (98-107); Estimated Glomerular Filt Rate > 60 mL/min (>60); Glucose 97 mg/dL (80-110); HEMOLYSIS < 15 (0-50); Potassium 4.4 mmol/L (3.4-5.1); Sodium 138 mmol/L (137-145)
[2021-12-04 11:07] LABS: Prostate Specific Antigen 0.222 ng/mL (0.10-4.00)
== END ==
PROVIDERS: Family Provider Student in an Organized Health Care Education/Training Program; PCP Student in an Organized Health Care Education/Training Program; Referring Provider Radiology Radiation Oncology; Visit Provider Radiology Radiation Oncology
DX: C61 Malignant neoplasm of prostate (principal); I10 Essential (primary) hypertension
CPT/HCPCS: 36415; 80048; 84153

== ENCOUNTER → 2022-01-13 13:39 | Outpatient (CLI) | payer OTHER, SELFPAY ==
--- NOTE | 2022-01-13 13:39 | DI.MRI.S_ITS ---
PROCEDURE: MR SHOULDER LT WO CON INDICATIONS: Left Shoulder Pain TECHNIQUE: Noncontrast oblique coronal T2 fast spin echo with fat saturation, oblique sagittal T1 spin echo and T2 fast spin echo with fat saturation, axial T1 spin echo and T2 fast spin echo with fat saturation through the shoulder. COMPARISON: None. FINDINGS: Image quality: Excellent. Rotator cuff: Low-grade articular and bursal surface partial thickness tear involving distal supraspinatus at its insertion on the humeral head is seen extending to musculotendinous junction. Distal infraspinatus tendinosis is noted. Distal subscapularis tendon is intact. No full-thickness rotator cuff tendon rupture. Sagittal images demonstrate mild supraspinatus muscle atrophy. Bones and bursae: No bone marrow contusions or fractures. Moderate acromioclavicular joint osteoarthritic changes are seen with joint space narrowing, subchondral sclerosis and downward osteophyte formation depressing the musculotendinous junction of supraspinatus. There is small amount of joint effusion and subacromial subdeltoid bursal fluid. Capsule and soft tissues: Signal abnormality and contour irregularity involving superior anterior labrum at 1 to 2 o'clock position is seen suggestive of superior anterior labral tear. The long head of the biceps tendon demonstrates normal location and morphology. The rotator interval appears normal, without fibrosis. The coracohumeral ligament is normal in thickness. IMPRESSION: 1. Low-grade articular and bursal surface partial thickness tear involving distal supraspinatus extending to musculotendinous junction. Distal infraspinatus tendinosis. No full-thickness rotator cuff tendon rupture. Mild supraspinatus muscle atrophy. 2. Moderate acromioclavicular joint osteoarthritis. No fracture or dislocation. Small amount of joint fluid and subacromial subdeltoid bursal fluid. 3. Suggestion of subtle superior anterior labral tear at 1 to 2 o'clock position. Dictated by: Sonido Romeo M.D. on 01/13/2022 at 14:27 Approved by: Sonido Romeo M.D. on 01/13/2022 at 14:36
== END ==
PROVIDERS: Family Provider Student in an Organized Health Care Education/Training Program; PCP Student in an Organized Health Care Education/Training Program; Referring Provider Student in an Organized Health Care Education/Training Program; Visit Provider Student in an Organized Health Care Education/Training Program
DX: M75.112 Incomplete rotator cuff tear or rupture of left shoulder, not specified as traumatic (principal); M19.012 Primary osteoarthritis, left shoulder; M25.512 Pain in left shoulder
CPT/HCPCS: 73221

== ENCOUNTER 2022-04-06 16:00 | Outpatient (RCR) | payer OTHER, SELFPAY ==
--- NOTE | 2021-12-21 10:30 | PT.OPPOC ---
Physical, Occupational & Speech Therapy At [facility] Current Diagnoses Pain in left shoulder (12/21/21) Pain in arm, unspecified (12/21/21) Visit Care Team Role Provider Type Hector Daugherty MD Family Provider Physician Primary Care Provider Specialty: Internal Medicine Address: [address] [place] [address], [address], [address] Email: [email or web address] Doug Montaño MD Attending Provider Physician Referring Provider Specialty: Internal Medicine Address: [address] [place] [address], [address], [place], [address] Email: [email or web address] Plan Of Care PT-OP-T Assessment and Plan Start: 12/21/21 17:43 Freq: Status: Active Protocol: Document 12/21/21 09:45 DCW (Rec: 12/22/21 09:33 DCW [id number]) Physical Therapy Assessment Rehab Potential Rehabilitation Potential Good Evaluation Complexity Number of Personal Factors/Comorbidities 1-2 Number of Body Systems Impaired 3 Clinical Presentation at Evaluation Evolving Impairments Impairments Functional Activities, Functional Mobility,Pain,ROM, Soft Tissue Mobility,Strength, Tone Goals Two Impairment Pt limited to 131? flexion and 80? 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 in both flexion and abduction to improve ability to don/doff shirt and jacket without increased pain LTG Duration 02/20/21 One Impairment Pt does not have an appropriate home exercise program Short Term Goal (STG) Pt to be independent and compliant with an appropriate HEP LTG Duration 01/20/22 Assessment Summary Assessment Pt presents with signs and symptoms of a potential rotator cuff injury. Pt is difficult to DDx more specifically than that, as all rotator cuff testing appears to be positive, with lift off, belly press, empty can, painful arc, Crisostomo-Aki, and passive ER tests all positive. No signs currently of labral or biceps involvement. Unusual in that pt reports symptoms continue to worsen, despite initial injury occurring more than six months ago. Pt would likely benefit from advanced imaging in order to rule in or rule out rotator cuff tearing. Pt may benefit from skilled therapy focusing on strengthening of the shoulder girdle, improving ROM, joint stability, and pain-reducing modalities. Physical Therapy Plan Frequency and Duration Frequency of Treatment 2x/Week Plan of Care Start Date 12/21/21 Plan of Care End Date 02/20/22 Therapeutic Interventions Therapeutic Interventions Home Exercise Program,Joint Mobilizations,Manual Therapy, Neuromuscular Re-education, Patient/Caregiver Education, Self-Care/Home Management,Soft Tissue Mobilization,Taping, Therapeutic Activities, Therapeutic Exercises, Vestibular Rehabilitation Modalities Cold Pack/Ice Massage,Electric Stimulation,Hot Packs, Ultrasound Other Referrals/Consults Referrals/Consults Recommended Pt would likely benefit from MRI/CT scan to rule in/rule out r/c tear due to worsening symptoms over more than six months. Next Visit Focus/Plan Next Note Type Treatment Note Next Visit Plan Strengthening, ROM, joint stabilization Plan of Care Dates Plan of Care Start Date 12/21/21 Plan of Care End Date 02/20/22 Electronically Signed by: Vladimir Lomeli, PT 12/22/21 0934 If you are in agreement with this Plan of Care, please return a signed and dated copy. I have reviewed this Plan of Care and certify that the skilled therapy services above are required to meet the patient?s needs. Physician Signature Date Printed Name and Credentials Clinical Instructor Signature Printed Name and Credentials
--- NOTE | 2021-12-21 10:30 | PT.OIE ---
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 Doug Montaño MD Attending Provider Physician Referring Provider Specialty: Internal Medicine Address: [address] [place] [address], [address] Email: 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 Pt was seen by his PCP in July after hoping it would get better, and since then received a referral in October, and waiting to get in for PT since then. Pt reports his pain seems to be worsening,and is limiting his ability to perform his normal activities. Unable to do anything overhead, hurts to even reach back and put his jacket on, or to lay on his left side. Treatment Goals Patient/Caregiver Goals I just want to be pain-free. PT-OP-C Subjective Start: 12/21/21 17:43 Freq: Status: Active Protocol: Document 12/21/21 09:45 DCW (Rec: 12/21/21 17:59 DCW [id number]) OP-PT Subjective Patient Comments Patient Comments It seems to have gotten worse . It's certainly not any better. Patient Reported Progress Worse OP-PT Pain Assessment Pain Assessment Grid Paper Pain Assessment Grid Completed Yes Location Left Anterior Lateral Shoulder Intensity 6 Scale Used Numeric (0 - 10) PT-OP-E Functional Tests Start: 12/21/21 17:43 Freq: Status: Active Protocol: Document 12/21/21 09:45 DCW (Rec: 12/21/21 17:59 MEW [id number]) Functional Tests Apley's Scratch Test Action 1- Left Anterior opposite shoulder Action 1- Right Posterior opposite shoulder Action 2- Left T3 Action 2- Right T3 Action 3- Left L PSIS Action 3- Right T11 PT-OP-F Manual Assessment Start: 12/21/21 17:43 Freq: Status: Active Protocol: Document 12/21/21 09:45 DCW (Rec: 12/21/21 17:59 MEW [id number]) Manual Assessments Soft Tissue Assessment Soft Tissue Mobility Assessment Tenderness to palpation 3/4: wincing and withdraw L Infraspinatus Tenderness to palpation 1/4: complaint of pain L LH biceps origin PT-OP-K Range of Motion Start: 12/21/21 17:43 Freq: Status: Active Protocol: Document 12/21/21 09:45 DCW (Rec: 12/21/21 17:59 DCW [id number]) Shoulder Goniometric Range of Motion Shoulder Right Active Shoulder ROM WFL Yes Testing Position Sitting Flexion 180 Abduction 180 External Rotation at 0 degrees Abduction 65 Internal Rotation Behind Back (text) T11 Left Active Shoulder ROM WFL No Testing Position Sitting Flexion 131 Abduction 80 External Rotation at 0 degrees Abduction 53 Internal Rotation Behind Back (text) L PSIS PT-OP-L Special Tests Start: 12/21/21 17:43 Freq: Status: Active Protocol: Document 12/21/21 09:45 DCW (Rec: 12/21/21 17:59 DCW [id number]) Special Tests Shoulder Special Tests Asmita's Biceps Test Results Negative Speed's Biceps Test Results Negative Passive ER Rotator Cuff Test Results Positive Left Painful Arc Test Results Positive Left Lift-Off Rotator Cuff Test Results Positive Left Crisostomo Aki Impingement Test Results Positive Left Grind Labrum Test Results Negative Empty Can Test Results Positive Left Belly Press Test Results Positive Left Apprehension Test Test Results Positive Left Anterior Draw Test Results Negative AC Joint Compression Test Results Negative PT-OP-M Strength Start: 12/21/21 17:43 Freq: Status: Active Protocol: Document 12/21/21 09:45 DCW (Rec: 12/21/21 17:59 DCW [id number]) Shoulder Strength Shoulder Manual Muscle Testing Right Flexion 5 Normal Abduction (C5) 5 Normal External Rotation 5 Normal Internal Rotation 5 Normal Left Flexion 3- Fair- Abduction (C5) 3- Fair- External Rotation 3- Fair- Internal Rotation 4+ Good+ Comments Unable to move through ROM against gravity secondary to pain PT-OP-Q Treatments Start: 12/21/21 17:43 Freq: Status: Active Protocol: Document 12/21/21 09:45 DCW (Rec: 12/21/21 17:45 DCW [id number]) Therapeutic Exercises Standing Exercises Rows Standing Exercise Name Rows Side bilateral Resistance Lv 2 Extension Standing Exercise Name Shoulder Extension Side bilateral Resistance Lv 2 ER/IR Standing Exercise Name Shoulder ER/IR Side left Resistance Lv 2 PT-OP-T Assessment and Plan Start: 12/21/21 17:43 Freq: Status: Active Protocol: Document 12/21/21 09:45 DC (Rec: 12/22/21 09:33 [facility] [id number]) Physical Therapy Assessment Rehab Potential Rehabilitation Potential Good Evaluation Complexity Number of Personal Factors/Comorbidities 1-2 Number of Body Systems Impaired 3 Clinical Presentation at Evaluation Evolving Impairments Impairments Functional Activities, Functional Mobility,Pain,ROM, Soft Tissue Mobility,Strength, Tone Goals Two Impairment Pt limited to 131? flexion and 80? abduction in left shoulder Penitentiary Goal (LTG) Pt to improve pain-free shoulder ROM to at least 135? in both flexion and abduction to improve ability to don/doff shirt and jacket without increased pain LTG Duration 02/20/21 One Impairment Pt does not have an appropriate home exercise program Short Term Goal (STG) Pt to be independent and compliant with an appropriate HEP LTG Duration 01/20/22 Assessment Summary Assessment Pt presents with signs and symptoms of a potential rotator cuff injury. Pt is difficult to DDx more specifically than that, as all rotator cuff testing appears to be positive, with lift off, belly press, empty can, painful arc, Crisostomo-Aki, and passive ER tests all positive. No signs currently of labral or biceps involvement. Unusual in that pt reports symptoms continue to worsen, despite initial injury occurring more than six months ago. Pt would likely benefit from advanced imaging in order to rule in or rule out rotator cuff tearing. Pt may benefit from skilled therapy focusing on strengthening of the shoulder girdle, improving ROM, joint stability, and pain-reducing modalities. Physical Therapy Plan Frequency and Duration Frequency of Treatment 2x/Week Plan of Care Start Date 12/21/21 Plan of Care End Date 02/20/22 Therapeutic Interventions Therapeutic Interventions Home Exercise Program,Joint Mobilizations,Manual Therapy, Neuromuscular Re-education, Patient/Caregiver Education, Self-Care/Home Management,Soft Tissue Mobilization,Taping, Therapeutic Activities, Therapeutic Exercises, Vestibular Rehabilitation Modalities Cold Pack/Ice Massage,Electric Stimulation,Hot Packs, Ultrasound Other Referrals/Consults Referrals/Consults Recommended Pt would likely benefit from MRI/CT scan to rule in/rule out r/c tear due to worsening symptoms over more than six months. Next Visit Focus/Plan Next Note Type Treatment Note Next Visit Plan Strengthening, ROM, joint stabilization
--- NOTE | 2021-12-24 09:00 | PT.OTN ---
Addendum entered and electronically signed by Radha Toney, ALLEN 12/24/21 09:33: Next tx: add open book, ABCs w/ wt in supine. Original Note: Current Diagnoses Pain in left shoulder (12/24/21) Pain in arm, unspecified (12/24/21) Physical Therapy Treatment Note PT-OP-A Visit Information Start: 12/21/21 17:43 Freq: Status: Active Protocol: Document 12/24/21 08:19 SP (Rec: 12/24/21 09:29 SP [id number]) Out-Patient Physical Therapy Visit Information Visit Information Visit Type Treatment Note Visit Start Time 08:19 Visit Stop Time 09:00 Total Visit Minutes 41 Visit Number 2 Number of POSTING CLERK Visits 1 Evaluation Information Evaluation Date 12/21/21 PT-OP-B Current Condition Start: 12/21/21 17:43 Freq: Status: Active Protocol: Document 12/21/21 09:45 DCW (Rec: 12/21/21 17:59 DCW [id number]) Current Condition History of Current Condition Onset Date Seven month history Current Complaints Left shoulder pain History of Current Condition Pt is a 81 year old male presenting with a seven month history of left shoulder pain. 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 Pt was seen by his PCP in July after hoping it would get better, and since then received a referral in October, and waiting to get in for PT since then. Pt reports his pain seems to be worsening,and is limiting his ability to perform his normal activities. Unable to do anything overhead, hurts to even reach back and put his jacket on, or to lay on his left side. Treatment Goals Patient/Caregiver Goals I just want to be pain-free. PT-OP-C Subjective Start: 12/21/21 17:43 Freq: Status: Active Protocol: Document 12/24/21 08:19 SP (Rec: 12/24/21 09:29 SP [id number]) OP-PT Subjective Patient Comments Patient Comments Pt reports did ok after last tx, no concerns and compliant with HEP. He reports a tball and long full foam roller at home. Often gets on floor to do yoga. PT-OP-E Functional Tests Start: 12/21/21 17:43 Freq: Status: Active Protocol: Document 12/21/21 09:45 DCW (Rec: 12/21/21 17:59 DCW [id number]) Functional Tests Apley's Scratch Test Action 1- Left Anterior opposite shoulder Action 1- Right Posterior opposite shoulder Action 2- Left T3 Action 2- Right T3 Action 3- Left L PSIS Action 3- Right T11 PT-OP-F Manual Assessment Start: 12/21/21 17:43 Freq: Status: Active Protocol: Document 12/21/21 09:45 DCW (Rec: 12/21/21 17:59 DCW [id number]) Manual Assessments Soft Tissue Assessment Soft Tissue Mobility Assessment Tenderness to palpation 3/4: wincing and withdraw L Infraspinatus Tenderness to palpation 1/4: complaint of pain L LH biceps origin PT-OP-K Range of Motion Start: 12/21/21 17:43 Freq: Status: Active Protocol: Document 12/21/21 09:45 DCW (Rec: 12/21/21 17:59 DCW [id number]) Shoulder Goniometric Range of Motion Shoulder Right Active Shoulder ROM WFL Yes Testing Position Sitting Flexion 180 Abduction 180 External Rotation at 0 degrees Abduction 65 Internal Rotation Behind Back (text) T11 Left Active Shoulder ROM WFL No Testing Position Sitting Flexion 131 Abduction 80 External Rotation at 0 degrees Abduction 53 Internal Rotation Behind Back (text) L PSIS PT-OP-L Special Tests Start: 12/21/21 17:43 Freq: Status: Active Protocol: Document 12/21/21 09:45 DCW (Rec: 12/21/21 17:59 DCW [id number]) Special Tests Shoulder Special Tests Yergason's Biceps Test Results Negative Speed's Biceps Test Results Negative Passive ER Rotator Cuff Test Results Positive Left Painful Arc Test Results Positive Left Lift-Off Rotator Cuff Test Results Positive Left Crisostomo Aki Impingement Test Results Positive Left Grind Labrum Test Results Negative Empty Can Test Results Positive Left Belly Press Test Results Positive Left Apprehension Test Test Results Positive Left Anterior Draw Test Results Negative AC Joint Compression Test Results Negative PT-OP-M Strength Start: 12/21/21 17:43 Freq: Status: Active Protocol: Document 12/21/21 09:45 DCW (Rec: 12/21/21 17:59 DCW [id number]) Shoulder Strength Shoulder Manual Muscle Testing Right Flexion 5 Normal Abduction (C5) 5 Normal External Rotation 5 Normal Internal Rotation 5 Normal Left Flexion 3- Fair- Abduction (C5) 3- Fair- External Rotation 3- Fair- Internal Rotation 4+ Good+ Comments Unable to move through ROM against gravity secondary to pain PT-OP-Q Treatments Start: 12/21/21 17:43 Freq: Status: Active Protocol: Document 12/24/21 08:19 SP (Rec: 12/24/21 09:29 SP [id number]) Therapeutic Exercises Supine Exercises foam roller Supine Exercise Name 1. pec stretch 2. ff 3. HABD 4 . diagonal Side bilateral Resistance AROM Reps/Minutes x10 reps Comments cued slow painfree AROM, good response Sitting Exercises UT, LS stretching Sitting Exercise Name added to HEP as needed Side bilateral Resistance L>R Reps/Minutes 30x3 Comments cued opp UE for gentle painfree overpressure if ok, good feedback stretch Standing Exercises self STMs Standing Exercise Name UT, inter scap Side left Equipment Used tennis ball on wall, theracane MWM head nods/turns Reps/Minutes 5 min Comments good feedback massage wall walk FF doorframe Standing Exercise Name added to HEP Side left Reps/Minutes 30x2 Comments cued neutral neck, no UT recruitment Rows Standing Exercise Name Rows Side bilateral Resistance Lv 2>#3 Reps/Minutes 2x15 Comments cued head up tall posture, painfree Extension Standing Exercise Name Shoulder Extension Side bilateral Resistance Lv 2 Reps/Minutes 2x15 Comments cued head up tall posture, painfree ER/IR Standing Exercise Name Shoulder ER/IR Side left Resistance Lv 2 Reps/Minutes 2x15 each direction Comments cued head up tall posture, painfree Manual Therapy Treatment Soft Tissue Mobilization neck, shld Body Location L UT, LS, suboccipital, SOR Mobilization Type Instrument Assisted,Strumming, Sustained Pressure,Other Intensity/Depth Moderate Body Position Hooklying Comments manual and ed on self use ball wall and theracane Joint Mobilizations GH Jt Joint L Direction AP, inferior glide Grade II Body Position Hooklying Comments good feedback response PT-OP-T Assessment and Plan Start: 12/21/21 17:43 Freq: Status: Active Protocol: Document 12/24/21 08:19 SP (Rec: 12/24/21 09:29 SP [id number]) Physical Therapy Assessment Goals Two Impairment Pt limited to 131? flexion and 80? abduction in left shoulder Blister Pack Operator Goal (LTG) Pt to improve pain-free shoulder ROM to at least 135? in both flexion and abduction to improve ability to don/doff shirt and jacket without increased pain LTG Duration 02/20/21 One Impairment Pt does not have an appropriate home exercise program Short Term Goal (STG) Pt to be independent and compliant with an appropriate HEP LTG Duration 01/20/22 Assessment Summary Assessment Pt good feedback response good masage over tight muscles neck, post scap to manual and instruction on self application use of ball on wall and theracane. Pt able to tolerate increase resistance with HEP. No adverse affects to AROM with newly added FF wall support and supine over foam roller. Physical Therapy Plan Frequency and Duration Frequency of Treatment 2x/Week Plan of Care Start Date 12/21/21 Plan of Care End Date 02/20/22 Therapeutic Interventions Therapeutic Interventions Home Exercise Program,Joint Mobilizations,Manual Therapy, Neuromuscular Re-education, Patient/Caregiver Education, Self-Care/Home Management,Soft Tissue Mobilization,Taping, Therapeutic Activities, Therapeutic Exercises, Vestibular Rehabilitation Modalities Cold Pack/Ice Massage,Electric Stimulation,Hot Packs, Ultrasound Other Referrals/Consults Referrals/Consults Recommended Pt would likely benefit from MRI/CT scan to rule in/rule out r/c tear due to worsening symptoms over more than six months. Next Visit Focus/Plan Next Note Type Treatment Note Next Visit Plan REcheck HEP: added AROM L shld AROM over foam roller, self STMs response. POC: Strengthening, ROM, joint stabilization
--- NOTE | 2021-12-28 09:04 | PT.OTN ---
Current Diagnoses Pain in left shoulder (12/28/21) Pain in arm, unspecified (12/28/21) Physical Therapy Treatment Note PT-OP-A Visit Information Start: 12/21/21 17:43 Freq: Status: Active Protocol: Document 12/28/21 08:12 NBM (Rec: 12/28/21 09:04 [facility] [id number]) Out-Patient Physical Therapy Visit Information Visit Information Visit Type Treatment Note Visit Start Time 08:17 Visit Stop Time 08:57 Total Visit Minutes 40 Visit Number 3 Number of SUPERVISOR [employer]S Visits 2 PT-OP-B Current Condition Start: 12/21/21 17:43 Freq: Status: Active Protocol: Document 12/21/21 09:45 DCW (Rec: 12/21/21 17:59 DCW [id number]) Current Condition History of Current Condition Onset Date Seven month history Current Complaints Left shoulder pain History of Current Condition Pt is a 81 year old male presenting with a seven month history of left shoulder pain. 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 Pt was seen by his PCP in July after hoping it would get better, and since then received a referral in October, and waiting to get in for PT since then. Pt reports his pain seems to be worsening,and is limiting his ability to perform his normal activities. Unable to do anything overhead, hurts to even reach back and put his jacket on, or to lay on his left side. Treatment Goals Patient/Caregiver Goals I just want to be pain-free. PT-OP-C Subjective Start: 12/21/21 17:43 Freq: Status: Active Protocol: Document 12/28/21 08:12 NB (Rec: 12/28/21 09:04 [facility] [id number]) OP-PT Subjective Patient Comments Patient Comments Pt reports no change in overall symptoms and no update for imaging. He has been doing all of his ex and is anxious to get better. He has not gotten a tennis ball for self STM yet. PT-OP-E Functional Tests Start: 12/21/21 17:43 Freq: Status: Active Protocol: Document 12/21/21 09:45 DCW (Rec: 12/21/21 17:59 DCW [id number]) Functional Tests Apley's Scratch Test Action 1- Left Anterior opposite shoulder Action 1- Right Posterior opposite shoulder Action 2- Left T3 Action 2- Right T3 Action 3- Left L PSIS Action 3- Right T11 PT-OP-F Manual Assessment Start: 12/21/21 17:43 Freq: Status: Active Protocol: Document 12/21/21 09:45 DCW (Rec: 12/21/21 17:59 DCW [id number]) Manual Assessments Soft Tissue Assessment Soft Tissue Mobility Assessment Tenderness to palpation 3/4: wincing and withdraw L Infraspinatus Tenderness to palpation 1/4: complaint of pain L LH biceps origin PT-OP-K Range of Motion Start: 12/21/21 17:43 Freq: Status: Active Protocol: Document 12/21/21 09:45 DCW (Rec: 12/21/21 17:59 DCW [id number]) Shoulder Goniometric Range of Motion Shoulder Right Active Shoulder ROM WFL Yes Testing Position Sitting Flexion 180 Abduction 180 External Rotation at 0 degrees Abduction 65 Internal Rotation Behind Back (text) T11 Left Active Shoulder ROM WFL No Testing Position Sitting Flexion 131 Abduction 80 External Rotation at 0 degrees Abduction 53 Internal Rotation Behind Back (text) L PSIS PT-OP-L Special Tests Start: 12/21/21 17:43 Freq: Status: Active Protocol: Document 12/21/21 09:45 DCW (Rec: 12/21/21 17:59 DCW [id number]) Special Tests Shoulder Special Tests Yergason's Biceps Test Results Negative Speed's Biceps Test Results Negative Passive ER Rotator Cuff Test Results Positive Left Painful Arc Test Results Positive Left Lift-Off Rotator Cuff Test Results Positive Left Crisostomo Aki Impingement Test Results Positive Left Grind Labrum Test Results Negative Empty Can Test Results Positive Left Belly Press Test Results Positive Left Apprehension Test Test Results Positive Left Anterior Draw Test Results Negative AC Joint Compression Test Results Negative PT-OP-M Strength Start: 12/21/21 17:43 Freq: Status: Active Protocol: Document 12/21/21 09:45 DCW (Rec: 12/21/21 17:59 DCW [id number]) Shoulder Strength Shoulder Manual Muscle Testing Right Flexion 5 Normal Abduction (C5) 5 Normal External Rotation 5 Normal Internal Rotation 5 Normal Left Flexion 3- Fair- Abduction (C5) 3- Fair- External Rotation 3- Fair- Internal Rotation 4+ Good+ Comments Unable to move through ROM against gravity secondary to pain PT-OP-Q Treatments Start: 12/21/21 17:43 Freq: Status: Active Protocol: Document 12/28/21 08:12 NB (Rec: 12/28/21 09:04 [facility] [id number]) Therapeutic Exercises Supine Exercises foam roller Supine Exercise Name 1. pec stretch 2. ff 3. HABD 4 . diagonal Side bilateral Resistance AROM Reps/Minutes x10 reps Comments cued slow painfree AROM, good response Sitting Exercises ER Side bilateral Resistance Lvl 2 Tb Reps/Minutes 2 x 15 Comments cues for supination, slower pacing, chin tuck UT, LS stretching Side left Resistance L Reps/Minutes 30x3 Standing Exercises self STMs Standing Exercise Name UT, inter scap Side left Equipment Used tennis ball on wall, theracane MWM head nods/turns Reps/Minutes 5 min Comments good feedback massage, guidance for MWM wall walk FF doorframe Side left Reps/Minutes 30x2 Comments vc no UT recruitment, scap setting for improved pain-free range Rows Standing Exercise Name Rows Side bilateral Resistance Lv #3 Reps/Minutes 2x15 Comments cued tall posture, pacing, painfree, elbow not past body Extension Standing Exercise Name Shoulder Extension Side bilateral Resistance Lv 3 Reps/Minutes 2x15 Comments cued head up tall posture, painfree ER/IR Standing Exercise Name Shoulder ER/IR Side left Resistance Lv 3 Reps/Minutes 2x15 each direction Comments cued head up tall posture, painfree, pacing Manual Therapy Treatment Joint Mobilizations GH Jt Joint L Direction AP, inferior glide Grade II Body Position Hooklying Comments good feedback response Self-Care/Home Management Treatment Education Patient Education Home Exercise Program Other Education HEP review with focus on posture/scapular setting and staying in pain-free range. PT-OP-R Modalities Start: 12/21/21 17:43 Freq: Status: Active Protocol: Document 12/28/21 08:12 [facility] (Rec: 12/28/21 09:04 [facility] [id number]) Hot Pack/Cold Pack Treatment Cold Pack Location L shoulder Patient Position Hooklying Treatment Duration (minutes) 10 Patient Tolerance Good PT-OP-T Assessment and Plan Start: 12/21/21 17:43 Freq: Status: Active Protocol: Document 12/28/21 08:12 [facility] (Rec: 12/28/21 09:04 [facility] [id number]) Physical Therapy Assessment Goals Two Impairment Pt limited to 131? flexion and 80? abduction in left shoulder [facility] Goal (LTG) Pt to improve pain-free shoulder ROM to at least 135? in both flexion and abduction to improve ability to don/doff shirt and jacket without increased pain LTG Duration 02/20/21 One Impairment Pt does not have an appropriate home exercise program Short Term Goal (STG) Pt to be independent and compliant with an appropriate HEP LTG Duration 01/20/22 Assessment Summary Assessment Pt demonstrates good compliance with HEP but requires moderate cues for scapular setting and upright posture w/ chin tuck, and overactive UT., as well as staying in pain-free ROM. Pt's self-awareness improves with cues and repetition and pain resolves with scapular setting prior to UE mobility. Physical Therapy Plan Frequency and Duration Frequency of Treatment 2x/Week Plan of Care Start Date 12/21/21 Plan of Care End Date 02/20/22 Therapeutic Interventions Therapeutic Interventions Home Exercise Program,Joint Mobilizations,Manual Therapy, Neuromuscular Re-education, Patient/Caregiver Education, Self-Care/Home Management,Soft Tissue Mobilization,Taping, Therapeutic Activities, Therapeutic Exercises, Vestibular Rehabilitation Modalities Cold Pack/Ice Massage,Electric Stimulation,Hot Packs, Ultrasound Other Referrals/Consults Referrals/Consults Recommended Pt would likely benefit from MRI/CT scan to rule in/rule out r/c tear due to worsening symptoms over more than six months. Next Visit Focus/Plan Next Note Type Treatment Note Next Visit Plan REcheck HEP: added AROM L shld AROM over foam roller. POC: Strengthening, ROM, joint stabilization
--- NOTE | 2021-12-30 16:02 | PT.OTN ---
Current Diagnoses Pain in left shoulder (12/30/21) Pain in arm, unspecified (12/30/21) Physical Therapy Treatment Note PT-OP-A Visit Information Start: 12/21/21 17:43 Freq: Status: Active Protocol: Document 12/30/21 15:15 DCW (Rec: 12/30/21 16:02 DCW [id number]) Out-Patient Physical Therapy Visit Information Visit Information Visit Type Treatment Note Visit Start Time 15:15 Visit Stop Time 16:00 Total Visit Minutes 45 Visit Number 4 Number of TITLE EXAMINER Visits 0 Evaluation Information Evaluation Date 12/21/21 PT-OP-B Current Condition Start: 12/21/21 17:43 Freq: Status: Active Protocol: Document 12/21/21 09:45 DCW (Rec: 12/21/21 17:59 DCW [id number]) Current Condition History of Current Condition Onset Date Seven month history Current Complaints Left shoulder pain History of Current Condition Pt is a 81 year old male presenting with a seven month history of left shoulder pain. 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 Pt was seen by his PCP in July after hoping it would get better, and since then received a referral in October, and waiting to get in for PT since then. Pt reports his pain seems to be worsening,and is limiting his ability to perform his normal activities. Unable to do anything overhead, hurts to even reach back and put his jacket on, or to lay on his left side. Treatment Goals Patient/Caregiver Goals I just want to be pain-free. PT-OP-C Subjective Start: 12/21/21 17:43 Freq: Status: Active Protocol: Document 12/30/21 15:15 DCW (Rec: 12/30/21 16:02 DCW [id number]) OP-PT Subjective Patient Comments Patient Comments Pt feels his shoulder is feeling a bit better. PT-OP-E Functional Tests Start: 12/21/21 17:43 Freq: Status: Active Protocol: Document 12/21/21 09:45 DCW (Rec: 12/21/21 17:59 DCW [id number]) Functional Tests Apley's Scratch Test Action 1- Left Anterior opposite shoulder Action 1- Right Posterior opposite shoulder Action 2- Left T3 Action 2- Right T3 Action 3- Left L PSIS Action 3- Right T11 PT-OP-F Manual Assessment Start: 12/21/21 17:43 Freq: Status: Active Protocol: Document 12/21/21 09:45 DCW (Rec: 12/21/21 17:59 DCW [id number]) Manual Assessments Soft Tissue Assessment Soft Tissue Mobility Assessment Tenderness to palpation 3/4: wincing and withdraw L Infraspinatus Tenderness to palpation 1/4: complaint of pain L LH biceps origin PT-OP-K Range of Motion Start: 12/21/21 17:43 Freq: Status: Active Protocol: Document 12/21/21 09:45 DCW (Rec: 12/21/21 17:59 DCW [id number]) Shoulder Goniometric Range of Motion Shoulder Right Active Shoulder ROM WFL Yes Testing Position Sitting Flexion 180 Abduction 180 External Rotation at 0 degrees Abduction 65 Internal Rotation Behind Back (text) T11 Left Active Shoulder ROM WFL No Testing Position Sitting Flexion 131 Abduction 80 External Rotation at 0 degrees Abduction 53 Internal Rotation Behind Back (text) L PSIS PT-OP-L Special Tests Start: 12/21/21 17:43 Freq: Status: Active Protocol: Document 12/21/21 09:45 DCW (Rec: 12/21/21 17:59 DCW [id number]) Special Tests Shoulder Special Tests Yergason's Biceps Test Results Negative Speed's Biceps Test Results Negative Passive ER Rotator Cuff Test Results Positive Left Painful Arc Test Results Positive Left Lift-Off Rotator Cuff Test Results Positive Left Crisostomo Aki Impingement Test Results Positive Left Grind Labrum Test Results Negative Empty Can Test Results Positive Left Belly Press Test Results Positive Left Apprehension Test Test Results Positive Left Anterior Draw Test Results Negative AC Joint Compression Test Results Negative PT-OP-M Strength Start: 12/21/21 17:43 Freq: Status: Active Protocol: Document 12/21/21 09:45 DCW (Rec: 12/21/21 17:59 DCW [id number]) Shoulder Strength Shoulder Manual Muscle Testing Right Flexion 5 Normal Abduction (C5) 5 Normal External Rotation 5 Normal Internal Rotation 5 Normal Left Flexion 3- Fair- Abduction (C5) 3- Fair- External Rotation 3- Fair- Internal Rotation 4+ Good+ Comments Unable to move through ROM against gravity secondary to pain PT-OP-Q Treatments Start: 12/21/21 17:43 Freq: Status: Active Protocol: Document 12/30/21 15:15 DCW (Rec: 12/30/21 16:02 DCW [id number]) Cardio Equipment Upper Body Ergometer (UBE) Duration (Minutes) 5 RPM 60 Seat Position 15 Height 3 Therapeutic Exercises Sitting Exercises UT, LS stretching Side left Resistance L Reps/Minutes 30x3 Manual Therapy Treatment Soft Tissue Mobilization neck, shld Body Location L UT, LS, suboccipital, SOR Mobilization Type Instrument Assisted,Strumming, Sustained Pressure,Other Intensity/Depth Moderate Body Position Hooklying Comments manual and ed on self use ball wall and theracane Joint Mobilizations GH Jt Joint L Direction AP, inferior glide Grade II Body Position Hooklying Comments good feedback response PT-OP-R Modalities Start: 12/21/21 17:43 Freq: Status: Active Protocol: Document 12/28/21 08:12 NBM (Rec: 12/28/21 09:04 NBM [id number]) Hot Pack/Cold Pack Treatment Cold Pack Location L shoulder Patient Position Hooklying Treatment Duration (minutes) 10 Patient Tolerance Good PT-OP-T Assessment and Plan Start: 12/21/21 17:43 Freq: Status: Active Protocol: Document 12/30/21 15:15 DCW (Rec: 12/30/21 16:02 DCW [id number]) Physical Therapy Assessment Goals Two Impairment Pt limited to 131? flexion and 80? abduction in left shoulder Group Home Goal (LTG) Pt to improve pain-free shoulder ROM to at least 135? in both flexion and abduction to improve ability to don/doff shirt and jacket without increased pain LTG Duration 02/20/21 One Impairment Pt does not have an appropriate home exercise program Short Term Goal (STG) Pt to be independent and compliant with an appropriate HEP LTG Duration 01/20/22 Assessment Summary Assessment Pt showing good progress already, improved ROM and strength, don/doff jacket pain -free today. Still has unusual combination of pain/positive tests which makes true DDx difficult, however pt so far happy with level of function improvement and decreased pain . Physical Therapy Plan Frequency and Duration Frequency of Treatment 2x/Week Plan of Care Start Date 12/21/21 Plan of Care End Date 02/20/22 Therapeutic Interventions Therapeutic Interventions Home Exercise Program,Joint Mobilizations,Manual Therapy, Neuromuscular Re-education, Patient/Caregiver Education, Self-Care/Home Management,Soft Tissue Mobilization,Taping, Therapeutic Activities, Therapeutic Exercises, Vestibular Rehabilitation Modalities Cold Pack/Ice Massage,Electric Stimulation,Hot Packs, Ultrasound Other Referrals/Consults Referrals/Consults Recommended Pt would likely benefit from MRI/CT scan to rule in/rule out r/c tear due to worsening symptoms over more than six months. Next Visit Focus/Plan Next Note Type Treatment Note Next Visit Plan REcheck HEP: added AROM L shld AROM over foam roller. POC: Strengthening, ROM, joint stabilization
--- NOTE | 2022-01-04 10:31 | PT.OTN ---
Current Diagnoses Pain in left shoulder (01/04/22) Pain in arm, unspecified (01/04/22) Physical Therapy Treatment Note PT-OP-A Visit Information Start: 12/21/21 17:43 Freq: Status: Active Protocol: Document 01/04/22 09:48 DCW (Rec: 01/04/22 10:30 DCW [id number]) Out-Patient Physical Therapy Visit Information Visit Information Visit Type Treatment Note Visit Start Time 09:48 Visit Stop Time 10:30 Total Visit Minutes 42 Visit Number 5 Number of UNIT SECY Visits 0 Evaluation Information Evaluation Date 12/21/21 PT-OP-B Current Condition Start: 12/21/21 17:43 Freq: Status: Active Protocol: Document 12/21/21 09:45 DCW (Rec: 12/21/21 17:59 DCW [id number]) Current Condition History of Current Condition Onset Date Seven month history Current Complaints Left shoulder pain History of Current Condition Pt is a 81 year old male presenting with a seven month history of left shoulder pain. 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 Pt was seen by his PCP in July after hoping it would get better, and since then received a referral in October, and waiting to get in for PT since then. Pt reports his pain seems to be worsening,and is limiting his ability to perform his normal activities. Unable to do anything overhead, hurts to even reach back and put his jacket on, or to lay on his left side. Treatment Goals Patient/Caregiver Goals I just want to be pain-free. PT-OP-C Subjective Start: 12/21/21 17:43 Freq: Status: Active Protocol: Document 01/04/22 09:48 DCW (Rec: 01/04/22 10:30 DCW [id number]) OP-PT Subjective Patient Comments Patient Comments Pt reports his shoulder felt significantly better following his last visit. PT-OP-E Functional Tests Start: 12/21/21 17:43 Freq: Status: Active Protocol: Document 12/21/21 09:45 DCW (Rec: 12/21/21 17:59 DCW [id number]) Functional Tests Apley's Scratch Test Action 1- Left Anterior opposite shoulder Action 1- Right Posterior opposite shoulder Action 2- Left T3 Action 2- Right T3 Action 3- Left L PSIS Action 3- Right T11 PT-OP-F Manual Assessment Start: 12/21/21 17:43 Freq: Status: Active Protocol: Document 12/21/21 09:45 DCW (Rec: 12/21/21 17:59 DCW [id number]) Manual Assessments Soft Tissue Assessment Soft Tissue Mobility Assessment Tenderness to palpation 3/4: wincing and withdraw L Infraspinatus Tenderness to palpation 1/4: complaint of pain L LH biceps origin PT-OP-K Range of Motion Start: 12/21/21 17:43 Freq: Status: Active Protocol: Document 12/21/21 09:45 DCW (Rec: 12/21/21 17:59 DCW [id number]) Shoulder Goniometric Range of Motion Shoulder Right Active Shoulder ROM WFL Yes Testing Position Sitting Flexion 180 Abduction 180 External Rotation at 0 degrees Abduction 65 Internal Rotation Behind Back (text) T11 Left Active Shoulder ROM WFL No Testing Position Sitting Flexion 131 Abduction 80 External Rotation at 0 degrees Abduction 53 Internal Rotation Behind Back (text) L PSIS PT-OP-L Special Tests Start: 12/21/21 17:43 Freq: Status: Active Protocol: Document 12/21/21 09:45 DCW (Rec: 12/21/21 17:59 DCW [id number]) Special Tests Shoulder Special Tests Yergason's Biceps Test Results Negative Speed's Biceps Test Results Negative Passive ER Rotator Cuff Test Results Positive Left Painful Arc Test Results Positive Left Lift-Off Rotator Cuff Test Results Positive Left Crisostomo Aki Impingement Test Results Positive Left Grind Labrum Test Results Negative Empty Can Test Results Positive Left Belly Press Test Results Positive Left Apprehension Test Test Results Positive Left Anterior Draw Test Results Negative AC Joint Compression Test Results Negative PT-OP-M Strength Start: 12/21/21 17:43 Freq: Status: Active Protocol: Document 12/21/21 09:45 DCW (Rec: 12/21/21 17:59 DCW [id number]) Shoulder Strength Shoulder Manual Muscle Testing Right Flexion 5 Normal Abduction (C5) 5 Normal External Rotation 5 Normal Internal Rotation 5 Normal Left Flexion 3- Fair- Abduction (C5) 3- Fair- External Rotation 3- Fair- Internal Rotation 4+ Good+ Comments Unable to move through ROM against gravity secondary to pain PT-OP-Q Treatments Start: 12/21/21 17:43 Freq: Status: Active Protocol: Document 01/04/22 09:48 DCW (Rec: 01/04/22 10:30 DCW [id number]) Cardio Equipment Upper Body Ergometer (UBE) Duration (Minutes) 5 RPM 60 Seat Position 14 Height 3 Therapeutic Exercises Supine Exercises foam roller Supine Exercise Name 1. pec stretch 2. ff 3. HABD Side bilateral Resistance AROM Reps/Minutes x10 reps Comments cued slow painfree AROM, good response Sitting Exercises UT, LS stretching Side left Resistance L Reps/Minutes 30x3 Manual Therapy Treatment Soft Tissue Mobilization neck, shld Body Location L UT, LS, suboccipital, SOR Mobilization Type Instrument Assisted,Strumming, Sustained Pressure,Other Intensity/Depth Moderate Body Position Hooklying Comments manual and ed on self use ball wall and theracane PT-OP-R Modalities Start: 12/21/21 17:43 Freq: Status: Active Protocol: Document 12/28/21 08:12 NBM (Rec: 12/28/21 09:04 NBM [id number]) Hot Pack/Cold Pack Treatment Cold Pack Location L shoulder Patient Position Hooklying Treatment Duration (minutes) 10 Patient Tolerance Good PT-OP-T Assessment and Plan Start: 12/21/21 17:43 Freq: Status: Active Protocol: Document 01/04/22 09:48 DCW (Rec: 01/04/22 10:30 DCW [id number]) Physical Therapy Assessment Goals Two Impairment Pt limited to 131? flexion and 80? abduction in left shoulder Residential Goal (LTG) Pt to improve pain-free shoulder ROM to at least 135? in both flexion and abduction to improve ability to don/doff shirt and jacket without increased pain LTG Duration 02/20/21 One Impairment Pt does not have an appropriate home exercise program Short Term Goal (STG) Pt to be independent and compliant with an appropriate HEP LTG Duration 01/20/22 Assessment Summary Assessment Pt feeling much better overall , showing good progress, still experiencing some pain down arm into biceps. Physical Therapy Plan Frequency and Duration Frequency of Treatment 2x/Week Plan of Care Start Date 12/21/21 Plan of Care End Date 02/20/22 Therapeutic Interventions Therapeutic Interventions Home Exercise Program,Joint Mobilizations,Manual Therapy, Neuromuscular Re-education, Patient/Caregiver Education, Self-Care/Home Management,Soft Tissue Mobilization,Taping, Therapeutic Activities, Therapeutic Exercises, Vestibular Rehabilitation Modalities Cold Pack/Ice Massage,Electric Stimulation,Hot Packs, Ultrasound Other Referrals/Consults Referrals/Consults Recommended Pt would likely benefit from MRI/CT scan to rule in/rule out r/c tear due to worsening symptoms over more than six months. Next Visit Focus/Plan Next Note Type Treatment Note Next Visit Plan REcheck HEP: added AROM L shld AROM over foam roller. POC: Strengthening, ROM, joint stabilization
--- NOTE | 2022-01-07 09:00 | PT.OTN ---
Current Diagnoses Pain in left shoulder (01/07/22) Pain in arm, unspecified (01/07/22) Physical Therapy Treatment Note PT-OP-A Visit Information Start: 12/21/21 17:43 Freq: Status: Active Protocol: Document 01/07/22 08:20 TS (Rec: 01/07/22 11:51 TS [id number]) Out-Patient Physical Therapy Visit Information Visit Information Visit Type Treatment Note Visit Note SPTA Crispin lead treatment, supervised and directed by ALLEN Garcia. 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 Pt was seen by his PCP in July after hoping it would get better, and since then received a referral in October, and waiting to get in for PT since then. Pt reports his pain seems to be worsening,and is limiting his ability to perform his normal activities. Unable to do anything overhead, hurts to even reach back and put his jacket on, or to lay on his left side. Treatment Goals Patient/Caregiver Goals I just want to be pain-free. PT-OP-C Subjective Start: 12/21/21 17:43 Freq: Status: Active Protocol: Document 01/07/22 08:20 TS (Rec: 01/07/22 11:51 TS [id number]) OP-PT Subjective Patient Comments Patient Comments Pt reports shoulder is feeling better, biceps is what is bothering him the most. PT-OP-E Functional Tests Start: 12/21/21 17:43 Freq: Status: Active Protocol: Document 12/21/21 09:45 DCW (Rec: 12/21/21 17:59 DCW [id number]) Functional Tests Norahey's Scratch Test Action 1- Left Anterior opposite shoulder Action 1- Right Posterior opposite shoulder Action 2- Left T3 Action 2- Right T3 Action 3- Left L PSIS Action 3- Right T11 PT-OP-F Manual Assessment Start: 12/21/21 17:43 Freq: Status: Active Protocol: Document 12/21/21 09:45 DCW (Rec: 12/21/21 17:59 DCW [id number]) Manual Assessments Soft Tissue Assessment Soft Tissue Mobility Assessment Tenderness to palpation 3/4: wincing and withdraw L Infraspinatus Tenderness to palpation 1/4: complaint of pain L LH biceps origin PT-OP-K Range of Motion Start: 12/21/21 17:43 Freq: Status: Active Protocol: Document 12/21/21 09:45 DCW (Rec: 12/21/21 17:59 DCW [id number]) Shoulder Goniometric Range of Motion Shoulder Right Active Shoulder ROM WFL Yes Testing Position Sitting Flexion 180 Abduction 180 External Rotation at 0 degrees Abduction 65 Internal Rotation Behind Back (text) T11 Left Active Shoulder ROM WFL No Testing Position Sitting Flexion 131 Abduction 80 External Rotation at 0 degrees Abduction 53 Internal Rotation Behind Back (text) L PSIS PT-OP-L Special Tests Start: 12/21/21 17:43 Freq: Status: Active Protocol: Document 12/21/21 09:45 DCW (Rec: 12/21/21 17:59 DCW [id number]) Special Tests Shoulder Special Tests Yergason's Biceps Test Results Negative Speed's Biceps Test Results Negative Passive ER Rotator Cuff Test Results Positive Left Painful Arc Test Results Positive Left Lift-Off Rotator Cuff Test Results Positive Left Crisostomo Aki Impingement Test Results Positive Left Grind Labrum Test Results Negative Empty Can Test Results Positive Left Belly Press Test Results Positive Left Apprehension Test Test Results Positive Left Anterior Draw Test Results Negative AC Joint Compression Test Results Negative PT-OP-M Strength Start: 12/21/21 17:43 Freq: Status: Active Protocol: Document 12/21/21 09:45 DCW (Rec: 12/21/21 17:59 DCW [id number]) Shoulder Strength Shoulder Manual Muscle Testing Right Flexion 5 Normal Abduction (C5) 5 Normal External Rotation 5 Normal Internal Rotation 5 Normal Left Flexion 3- Fair- Abduction (C5) 3- Fair- External Rotation 3- Fair- Internal Rotation 4+ Good+ Comments Unable to move through ROM against gravity secondary to pain PT-OP-Q Treatments Start: 12/21/21 17:43 Freq: Status: Active Protocol: Document 01/07/22 08:20 TS (Rec: 01/07/22 11:51 TS [id number]) Cardio Equipment Upper Body Ergometer (UBE) Duration (Minutes) 5 RPM 60 Seat Position 14 Height 3 Therapeutic Exercises Sidelying Exercises ABD Sidelying Exercise Name AROM ABD, Added to HEP Side left Reps/Minutes 1x10 Comments Pt progressively imporves ROM with reps Open Book Sidelying Exercise Name Added to HEP Side left Reps/Minutes 1x15, 5 sec hold Comments Cues for sequencing of Standing Exercises IR Stretch Equipment Used Towel Reps/Minutes 1x5, 5 sec hold Comments Discomfort in biceps, hold ex bicep discomfort not tolerated Manual Therapy Treatment Soft Tissue Mobilization L Shoulder Body Location Pec,UT, Rhomboid, Biceps, T minor Intensity/Depth Moderate Body Position 20' Comments PT reports relief in L biceps. neck, shld Body Location L UT, LS, suboccipital, SOR Mobilization Type Instrument Assisted,Strumming, Sustained Pressure,Other Intensity/Depth Moderate Body Position Hooklying Comments manual and ed on self use ball wall and theracane Joint Mobilizations Scap Joint L Direction Protraction, Retraction, inferior, superior Body Position Sidelying Reps/Duration 5' Comments Good feedback reponse. Guards muscles, twinges throughout mobs in L arm. GH Jt Joint L Direction AP, inferior glide Grade II Body Position Hooklying Reps/Duration 5' Comments good feedback response, small twinges throughout L arm during mobs. Self-Care/Home Management Treatment Education Other Education Home instruction on biceps self-stm with pin and stretch. PT-OP-R Modalities Start: 12/21/21 17:43 Freq: Status: Active Protocol: Document 12/28/21 08:12 NBM (Rec: 12/28/21 09:04 NBM [id number]) Hot Pack/Cold Pack Treatment Cold Pack Location L shoulder Patient Position Hooklying Treatment Duration (minutes) 10 Patient Tolerance Good PT-OP-T Assessment and Plan Start: 12/21/21 17:43 Freq: Status: Active Protocol: Document 01/07/22 08:20 TS (Rec: 01/07/22 11:51 TS [id number]) Physical Therapy Assessment Goals Two Impairment Pt limited to 131? flexion and 80? abduction in left shoulder Care Home Goal (LTG) Pt to improve pain-free shoulder ROM to at least 135? in both flexion and abduction to improve ability to don/doff shirt and jacket without increased pain LTG Duration 02/20/21 One Impairment Pt does not have an appropriate home exercise program Short Term Goal (STG) Pt to be independent and compliant with an appropriate HEP LTG Duration 01/20/22 Assessment Summary Assessment Pt reports pain in biceps with IR stretch with towel, D/C at this time. Pt had good response to manual therpay, especially in biceps tendon, felt relief of discomfort. Pt does guard throughout manual and requires consistent cues to relax L arm. Pt demonstrated increased ABD ROM with continued reps. Pt will benefit from continued intervention to improve ROM and ability to don and doff clothing. Physical Therapy Plan Frequency and Duration Frequency of Treatment 2x/Week Plan of Care Start Date 12/21/21 Plan of Care End Date 02/20/22 Therapeutic Interventions Therapeutic Interventions Home Exercise Program,Joint Mobilizations,Manual Therapy, Neuromuscular Re-education, Patient/Caregiver Education, Self-Care/Home Management,Soft Tissue Mobilization,Taping, Therapeutic Activities, Therapeutic Exercises, Vestibular Rehabilitation Modalities Cold Pack/Ice Massage,Electric Stimulation,Hot Packs, Ultrasound Next Visit Focus/Plan Next Note Type Treatment Note Next Visit Plan Next session assess ROM of L ABD, hep of open book and AROM ABD. Continue manual therapy for reduction of symptoms in biceps. If bicep symptoms have reduced trial IR towel stretch. Progress strength and ROM.
--- NOTE | 2022-01-11 08:55 | PT.OTN ---
Current Diagnoses Pain in left shoulder (01/11/22) Pain in arm, unspecified (01/11/22) Physical Therapy Treatment Note PT-OP-A Visit Information Start: 12/21/21 17:43 Freq: Status: Active Protocol: Document 01/11/22 08:10 TS (Rec: 01/11/22 09:22 TS [id number]) Out-Patient Physical Therapy Visit Information Visit Information Visit Type Treatment Note Visit Note SPTA Crispin lead treatment under the supervision of ALLEN Garcia. Visit Start Time 08:15 Visit Stop Time 08:55 Total Visit Minutes 40 Visit Number 7 Number of [employer] SECRETARY Visits 2 PT-OP-B Current Condition Start: 12/21/21 17:43 Freq: Status: Active Protocol: Document 12/21/21 09:45 DCW (Rec: 12/21/21 17:59 DCW [id number]) Current Condition History of Current Condition Onset Date Seven month history Current Complaints Left shoulder pain History of Current Condition Pt is a 81 year old male presenting with a seven month history of left shoulder pain. 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 Pt was seen by his PCP in July after hoping it would get better, and since then received a referral in October, and waiting to get in for PT since then. Pt reports his pain seems to be worsening,and is limiting his ability to perform his normal activities. Unable to do anything overhead, hurts to even reach back and put his jacket on, or to lay on his left side. Treatment Goals Patient/Caregiver Goals I just want to be pain-free. PT-OP-C Subjective Start: 12/21/21 17:43 Freq: Status: Active Protocol: Document 01/11/22 08:10 TS (Rec: 01/11/22 09:22 TS [id number]) OP-PT Subjective Patient Comments Patient Comments Pt reports self massage of pin and stretch of biceps is helping him with is his pain. Will be scheduling an MRI on Tuesday. PT-OP-E Functional Tests Start: 12/21/21 17:43 Freq: Status: Active Protocol: Document 12/21/21 09:45 DCW (Rec: 12/21/21 17:59 DCW [id number]) Functional Tests Apley's Scratch Test Action 1- Left Anterior opposite shoulder Action 1- Right Posterior opposite shoulder Action 2- Left T3 Action 2- Right T3 Action 3- Left L PSIS Action 3- Right T11 PT-OP-F Manual Assessment Start: 12/21/21 17:43 Freq: Status: Active Protocol: Document 12/21/21 09:45 DCW (Rec: 12/21/21 17:59 DCW [id number]) Manual Assessments Soft Tissue Assessment Soft Tissue Mobility Assessment Tenderness to palpation 3/4: wincing and withdraw L Infraspinatus Tenderness to palpation 1/4: complaint of pain L LH biceps origin PT-OP-K Range of Motion Start: 12/21/21 17:43 Freq: Status: Active Protocol: Document 12/21/21 09:45 DCW (Rec: 12/21/21 17:59 DCW [id number]) Shoulder Goniometric Range of Motion Shoulder Right Active Shoulder ROM WFL Yes Testing Position Sitting Flexion 180 Abduction 180 External Rotation at 0 degrees Abduction 65 Internal Rotation Behind Back (text) T11 Left Active Shoulder ROM WFL No Testing Position Sitting Flexion 131 Abduction 80 External Rotation at 0 degrees Abduction 53 Internal Rotation Behind Back (text) L PSIS PT-OP-L Special Tests Start: 12/21/21 17:43 Freq: Status: Active Protocol: Document 12/21/21 09:45 DCW (Rec: 12/21/21 17:59 DCW [id number]) Special Tests Shoulder Special Tests Yergason's Biceps Test Results Negative Speed's Biceps Test Results Negative Passive ER Rotator Cuff Test Results Positive Left Painful Arc Test Results Positive Left Lift-Off Rotator Cuff Test Results Positive Left Crisostomo Aki Impingement Test Results Positive Left Grind Labrum Test Results Negative Empty Can Test Results Positive Left Belly Press Test Results Positive Left Apprehension Test Test Results Positive Left Anterior Draw Test Results Negative AC Joint Compression Test Results Negative PT-OP-M Strength Start: 12/21/21 17:43 Freq: Status: Active Protocol: Document 12/21/21 09:45 DCW (Rec: 12/21/21 17:59 DCW [id number]) Shoulder Strength Shoulder Manual Muscle Testing Right Flexion 5 Normal Abduction (C5) 5 Normal External Rotation 5 Normal Internal Rotation 5 Normal Left Flexion 3- Fair- Abduction (C5) 3- Fair- External Rotation 3- Fair- Internal Rotation 4+ Good+ Comments Unable to move through ROM against gravity secondary to pain PT-OP-Q Treatments Start: 12/21/21 17:43 Freq: Status: Active Protocol: Document 01/11/22 08:10 TS (Rec: 01/11/22 09:22 TS [id number]) Cardio Equipment Upper Body Ergometer (UBE) Duration (Minutes) 5 RPM 60 Seat Position 14 Height 3 Other With longer reach Therapeutic Exercises Sidelying Exercises ABD Sidelying Exercise Name AROM ABD Side left Reps/Minutes 1x10 Comments Pt progressively improves ROM with reps Open Book Side left Reps/Minutes 1x15, 5 sec hold Comments Cues for pain free range. Sitting Exercises UT, LS stretching Side left Resistance L Reps/Minutes 30x3 Comments Feeling good stretch, good carryover from previous treatment Standing Exercises Lateral Wall Walk w/TB Equipment Used LVL 1 Reps/Minutes 2x10' Comments Pt feeling good scap act, cues for 90/90 Pec Stretch Reps/Minutes 1x30 Comments Not feeling stretch in pecs, getting in triceps on L side, hold off IR Stretch Equipment Used Towel Reps/Minutes 1x5, 5 sec hold Comments Pt feeling deeper stretch to oppok iliac crest wall walk FF doorframe Side left Reps/Minutes 1x5 w/5sec holds Comments vc no UT recruitment, scap setting for improved pain-free range Rows Standing Exercise Name Rows Side bilateral Resistance Lv #3 Reps/Minutes 2x15 Comments cued tall posture, pacing, painfree, elbow not past body Extension Standing Exercise Name Shoulder Extension Side bilateral Resistance Lv 3 Reps/Minutes 2x15 Comments cued head up tall posture, painfree ER/IR Standing Exercise Name Shoulder ER/IR Side left Resistance Lv 3 Reps/Minutes 2x15 each direction Comments cues for posture, Manual Therapy Treatment Joint Mobilizations Scap Joint L Direction Protraction, Retraction, inferior, superior Body Position Sidelying Reps/Duration 5' Comments Good response, pt feeling more ROM. GH Jt Joint L Direction AP, inferior glide Grade II Body Position Hooklying Reps/Duration 5' Comments Good response to distraction w / mobs PT-OP-R Modalities Start: 12/21/21 17:43 Freq: Status: Active Protocol: Document 12/28/21 08:12 NBM (Rec: 12/28/21 09:04 NB [id number]) Hot Pack/Cold Pack Treatment Cold Pack Location L shoulder Patient Position Hooklying Treatment Duration (minutes) 10 Patient Tolerance Good PT-OP-T Assessment and Plan Start: 12/21/21 17:43 Freq: Status: Active Protocol: Document 01/11/22 08:10 TS (Rec: 01/11/22 09:22 TS [id number]) Physical Therapy Assessment Goals Two Impairment Pt limited to 131? flexion and 80? abduction in left shoulder Intermediate Goal (LTG) Pt to improve pain-free shoulder ROM to at least 135? in both flexion and abduction to improve ability to don/doff shirt and jacket without increased pain LTG Duration 02/20/21 One Impairment Pt does not have an appropriate home exercise program Short Term Goal (STG) Pt to be independent and compliant with an appropriate HEP. LTG Duration 01/20/22 Assessment Summary Assessment Pt demonstrates progression of ROM of L shldr in IR stretch with hand reach to oppo iliac crest this treatment. Pt progressed scap strength with lateral wall walks. Pt continues to require cues for posture during ex. Pt will benefit from continued intervention to improve ROM and strength in L shldr to return to daily activites. Physical Therapy Plan Frequency and Duration Frequency of Treatment 2x/Week Plan of Care Start Date 12/21/21 Plan of Care End Date 02/20/22 Therapeutic Interventions Therapeutic Interventions Home Exercise Program,Joint Mobilizations,Manual Therapy, Neuromuscular Re-education, Patient/Caregiver Education, Self-Care/Home Management,Soft Tissue Mobilization,Taping, Therapeutic Activities, Therapeutic Exercises, Vestibular Rehabilitation Modalities Cold Pack/Ice Massage,Electric Stimulation,Hot Packs, Ultrasound Other Referrals/Consults Referrals/Consults Recommended Pt would likely benefit from MRI/CT scan to rule in/rule out r/c tear due to worsening symptoms over more than six months. Next Visit Focus/Plan Next Note Type Treatment Note Next Visit Plan Assess ROM in Flex and ABD and response to lateral wall walk . Check in on self-stm for biceps. Progress scap/shldr ex with scap clocks, 3 way shoulder, I's,Y's,T's, increase rows res. Look into further appointments, last one scheduled is 01/14.
--- NOTE | 2022-01-14 10:30 | PT.OTN ---
Current Diagnoses Pain in left shoulder (01/14/22) Pain in arm, unspecified (01/14/22) Physical Therapy Treatment Note PT-OP-A Visit Information Start: 12/21/21 17:43 Freq: Status: Active Protocol: Document 01/14/22 09:45 DCW (Rec: 01/14/22 10:30 DCW [id number]) Out-Patient Physical Therapy Visit Information Visit Information Visit Type Treatment Note Visit Start Time 09:45 Visit Stop Time 10:30 Total Visit Minutes 45 Visit Number 8 Number of MARKING STITCHER Visits 0 Evaluation Information Evaluation Date 12/21/21 PT-OP-B Current Condition Start: 12/21/21 17:43 Freq: Status: Active Protocol: Document 12/21/21 09:45 DCW (Rec: 12/21/21 17:59 DCW [id number]) Current Condition History of Current Condition Onset Date Seven month history Current Complaints Left shoulder pain History of Current Condition Pt is a 81 year old male presenting with a seven month history of left shoulder pain. 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 Pt was seen by his PCP in July after hoping it would get better, and since then received a referral in October, and waiting to get in for PT since then. Pt reports his pain seems to be worsening,and is limiting his ability to perform his normal activities. Unable to do anything overhead, hurts to even reach back and put his jacket on, or to lay on his left side. Treatment Goals Patient/Caregiver Goals I just want to be pain-free. PT-OP-C Subjective Start: 12/21/21 17:43 Freq: Status: Active Protocol: Document 01/14/22 09:45 DCW (Rec: 01/14/22 10:30 DCW [id number]) OP-PT Subjective Patient Comments Patient Comments Pt comes in today after receiving an MRI earlier this week, report notes partial thickness tear of supraspinatus and a suggestion of superior anterior labral tear. PT-OP-E Functional Tests Start: 12/21/21 17:43 Freq: Status: Active Protocol: Document 12/21/21 09:45 DCW (Rec: 12/21/21 17:59 DCW [id number]) Functional Tests Apley's Scratch Test Action 1- Left Anterior opposite shoulder Action 1- Right Posterior opposite shoulder Action 2- Left T3 Action 2- Right T3 Action 3- Left L PSIS Action 3- Right T11 PT-OP-F Manual Assessment Start: 12/21/21 17:43 Freq: Status: Active Protocol: Document 12/21/21 09:45 DCW (Rec: 12/21/21 17:59 DCW [id number]) Manual Assessments Soft Tissue Assessment Soft Tissue Mobility Assessment Tenderness to palpation 3/4: wincing and withdraw L Infraspinatus Tenderness to palpation 1/4: complaint of pain L LH biceps origin PT-OP-K Range of Motion Start: 12/21/21 17:43 Freq: Status: Active Protocol: Document 12/21/21 09:45 DCW (Rec: 12/21/21 17:59 DCW [id number]) Shoulder Goniometric Range of Motion Shoulder Right Active Shoulder ROM WFL Yes Testing Position Sitting Flexion 180 Abduction 180 External Rotation at 0 degrees Abduction 65 Internal Rotation Behind Back (text) T11 Left Active Shoulder ROM WFL No Testing Position Sitting Flexion 131 Abduction 80 External Rotation at 0 degrees Abduction 53 Internal Rotation Behind Back (text) L PSIS PT-OP-L Special Tests Start: 12/21/21 17:43 Freq: Status: Active Protocol: Document 12/21/21 09:45 DCW (Rec: 12/21/21 17:59 DCW [id number]) Special Tests Shoulder Special Tests Yergason's Biceps Test Results Negative Speed's Biceps Test Results Negative Passive ER Rotator Cuff Test Results Positive Left Painful Arc Test Results Positive Left Lift-Off Rotator Cuff Test Results Positive Left Crisostomo Aki Impingement Test Results Positive Left Grind Labrum Test Results Negative Empty Can Test Results Positive Left Belly Press Test Results Positive Left Apprehension Test Test Results Positive Left Anterior Draw Test Results Negative AC Joint Compression Test Results Negative PT-OP-M Strength Start: 12/21/21 17:43 Freq: Status: Active Protocol: Document 12/21/21 09:45 DCW (Rec: 12/21/21 17:59 DCW [id number]) Shoulder Strength Shoulder Manual Muscle Testing Right Flexion 5 Normal Abduction (C5) 5 Normal External Rotation 5 Normal Internal Rotation 5 Normal Left Flexion 3- Fair- Abduction (C5) 3- Fair- External Rotation 3- Fair- Internal Rotation 4+ Good+ Comments Unable to move through ROM against gravity secondary to pain PT-OP-Q Treatments Start: 12/21/21 17:43 Freq: Status: Active Protocol: Document 01/14/22 09:45 DCW (Rec: 01/14/22 10:30 DCW [id number]) Cardio Equipment Upper Body Ergometer (UBE) Duration (Minutes) 5 RPM 60 Seat Position 14 Height 3.5 Therapeutic Exercises Standing Exercises Wall Clock Standing Exercise Name Wall Clock Side bilateral Resistance Red Lateral Wall Walk w/TB Equipment Used Red Reps/Minutes 2x10' Comments Pt feeling good scap act, cues for 90/90 IR Stretch Standing Exercise Name Pulleys - IR Side left Manual Therapy Treatment Soft Tissue Mobilization L Shoulder Body Location Pec,UT, Rhomboid, Biceps, T minor Intensity/Depth Moderate Comments PT reports relief in L biceps. neck, shld Body Location L UT, LS, suboccipital, SOR Mobilization Type Instrument Assisted,Strumming, Sustained Pressure,Other Intensity/Depth Moderate Body Position Hooklying Joint Mobilizations Scap Joint L Direction Protraction, Retraction, inferior, superior Body Position Sidelying Reps/Duration 5' Comments Good feedback reponse. Guards muscles, twinges throughout mobs in L arm. GH Jt Joint L Direction AP, inferior glide Grade II Body Position Hooklying Reps/Duration 5' Comments good feedback response, small twinges throughout L arm during mobs. PT-OP-R Modalities Start: 12/21/21 17:43 Freq: Status: Active Protocol: Document 12/28/21 08:12 NB (Rec: 12/28/21 09:04 NB [id number]) Hot Pack/Cold Pack Treatment Cold Pack Location L shoulder Patient Position Hooklying Treatment Duration (minutes) 10 Patient Tolerance Good PT-OP-T Assessment and Plan Start: 12/21/21 17:43 Freq: Status: Active Protocol: Document 01/14/22 09:45 DCW (Rec: 01/14/22 10:30 DCW [id number]) Physical Therapy Assessment Goals Two Impairment Pt limited to 131? flexion and 80? abduction in left shoulder Shelter Goal (LTG) Pt to improve pain-free shoulder ROM to at least 135? in both flexion and abduction to improve ability to don/doff shirt and jacket without increased pain LTG Duration 02/20/21 One Impairment Pt does not have an appropriate home exercise program Short Term Goal (STG) Pt to be independent and compliant with an appropriate HEP. LTG Duration 01/20/22 Assessment Summary Assessment Briefly reviewed some questions pt had regarding MRI results, but recommended pt follow-up with Dr Daugherty. Pt continues to show improvement with pain and mobility, reaching back to don/doff jacket still most difficult action for pt, however he is doing better with IR stretching. Physical Therapy Plan Frequency and Duration Frequency of Treatment 2x/Week Plan of Care Start Date 12/21/21 Plan of Care End Date 02/20/22 Therapeutic Interventions Therapeutic Interventions Home Exercise Program,Joint Mobilizations,Manual Therapy, Neuromuscular Re-education, Patient/Caregiver Education, Self-Care/Home Management,Soft Tissue Mobilization,Taping, Therapeutic Activities, Therapeutic Exercises, Vestibular Rehabilitation Modalities Cold Pack/Ice Massage,Electric Stimulation,Hot Packs, Ultrasound Next Visit Focus/Plan Next Note Type Treatment Note Next Visit Plan Assess ROM in Flex and ABD. Progress scap/shldr ex with scap clocks, 3 way shoulder, I 's,Y's,T's, increase rows res. Look into further appointments, last one scheduled is 01/14.
--- NOTE | 2022-01-18 14:30 | PT.OTN ---
Current Diagnoses Pain in left shoulder (01/18/22) Pain in arm, unspecified (01/18/22) Physical Therapy Treatment Note PT-OP-A Visit Information Start: 12/21/21 17:43 Freq: Status: Active Protocol: Document 01/18/22 13:45 SP (Rec: 01/18/22 14:36 SP [id number]) Out-Patient Physical Therapy Visit Information Visit Information Visit Type Treatment Note Visit Note 10th visit, PN next tx. Visit Start Time 13:45 Visit Stop Time 14:30 Total Visit Minutes 45 Visit Number 9 Number of LDR RN Visits 1 Evaluation Information Evaluation Date 12/21/21 Precautions Precautions 01/13/22: L shld MRI: 1. Low-grade articular and bursal surface partial thickness tear involving distal supraspinatus extending to musculotendinous junction. Distal infraspinatus tendinosis. No full-thickness rotator cuff tendon rupture. Mild supraspinatus muscle atrophy. 2. Moderate acromioclavicular joint osteoarthritis. No fracture or dislocation. Small amount of joint fluid and subacromial subdeltoid bursal fluid. 3. Suggestion of subtle superior anterior labral tear at 1 to 2 o'clock position. PT-OP-B Current Condition Start: 12/21/21 17:43 Freq: Status: Active Protocol: Document 12/21/21 09:45 DCW (Rec: 12/21/21 17:59 DCW [id number]) Current Condition History of Current Condition Onset Date Seven month history Current Complaints Left shoulder pain History of Current Condition Pt is a 81 year old male presenting with a seven month history of left shoulder pain. 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 Pt was seen by his PCP in July after hoping it would get better, and since then received a referral in October, and waiting to get in for PT since then. Pt reports his pain seems to be worsening,and is limiting his ability to perform his normal activities. Unable to do anything overhead, hurts to even reach back and put his jacket on, or to lay on his left side. Treatment Goals Patient/Caregiver Goals I just want to be pain-free. PT-OP-C Subjective Start: 12/21/21 17:43 Freq: Status: Active Protocol: Document 01/18/22 13:45 SP (Rec: 01/18/22 14:36 SP [id number]) OP-PT Subjective Patient Comments Patient Comments Pt reports bicep getting better, getting easier but still the hardest thing he does to get coat on but still limited. Pt stated got results of L shld MRI results in precautions, pt is aware and suggested continue PT and see if assists function and if need discuss further interventions will address later. PT-OP-E Functional Tests Start: 12/21/21 17:43 Freq: Status: Active Protocol: Document 12/21/21 09:45 DCW (Rec: 12/21/21 17:59 DCW [id number]) Functional Tests Apley's Scratch Test Action 1- Left Anterior opposite shoulder Action 1- Right Posterior opposite shoulder Action 2- Left T3 Action 2- Right T3 Action 3- Left L PSIS Action 3- Right T11 PT-OP-F Manual Assessment Start: 12/21/21 17:43 Freq: Status: Active Protocol: Document 12/21/21 09:45 DCW (Rec: 12/21/21 17:59 DCW [id number]) Manual Assessments Soft Tissue Assessment Soft Tissue Mobility Assessment Tenderness to palpation 3/4: wincing and withdraw L Infraspinatus Tenderness to palpation 1/4: complaint of pain L LH biceps origin PT-OP-K Range of Motion Start: 12/21/21 17:43 Freq: Status: Active Protocol: Document 01/18/22 13:45 SP (Rec: 01/18/22 14:36 SP [id number]) Shoulder Goniometric Range of Motion Shoulder Left Active Shoulder ROM WFL No Testing Position Standing Flexion 142 Abduction 85 External Rotation at 0 degrees Abduction 65 Internal Rotation Behind Back (text) L4 Comments L shld standing AROM: gained 5 deg ABD gained 11 deg FF gained 12 deg ER gained PSIS to L4 with IR PT-OP-L Special Tests Start: 12/21/21 17:43 Freq: Status: Active Protocol: Document 12/21/21 09:45 DCW (Rec: 12/21/21 17:59 DCW [id number]) Special Tests Shoulder Special Tests Yergason's Biceps Test Results Negative Speed's Biceps Test Results Negative Passive ER Rotator Cuff Test Results Positive Left Painful Arc Test Results Positive Left Lift-Off Rotator Cuff Test Results Positive Left Crisostomo Aki Impingement Test Results Positive Left Grind Labrum Test Results Negative Empty Can Test Results Positive Left Belly Press Test Results Positive Left Apprehension Test Test Results Positive Left Anterior Draw Test Results Negative AC Joint Compression Test Results Negative PT-OP-M Strength Start: 12/21/21 17:43 Freq: Status: Active Protocol: Document 12/21/21 09:45 DCW (Rec: 12/21/21 17:59 DCW [id number]) Shoulder Strength Shoulder Manual Muscle Testing Right Flexion 5 Normal Abduction (C5) 5 Normal External Rotation 5 Normal Internal Rotation 5 Normal Left Flexion 3- Fair- Abduction (C5) 3- Fair- External Rotation 3- Fair- Internal Rotation 4+ Good+ Comments Unable to move through ROM against gravity secondary to pain PT-OP-Q Treatments Start: 12/21/21 17:43 Freq: Status: Active Protocol: Document 01/18/22 13:45 SP (Rec: 01/18/22 14:36 SP [id number]) Cardio Equipment Upper Body Ergometer (UBE) Duration (Minutes) 5 RPM 60 Seat Position 14 Height 3.5 Other 290 cycles, states little irritation bicep but not painful Therapeutic Exercises Sidelying Exercises Open Book Side left Reps/Minutes 3 reps, 5 sec hold Comments Cues for pain free range. Standing Exercises AAROM wall walking Standing Exercise Name FF, Scaption Reps/Minutes 10-15 x5- reps Comments stated discomfort but finds gaining range and beneficial Lateral Wall Walk w/TB Equipment Used Red Reps/Minutes 2x10' Comments Pt feeling good scap act, cues for 90/90 IR Stretch Standing Exercise Name IR standing: ceferino, towel, door jam wall walk. Side left Equipment Used good Reps/Minutes 10 s x5 reps Comments good underst: proper trunk/ no UT alignement, adduction, elevated up back Extension Standing Exercise Name Shoulder Extension Side bilateral Resistance Lv 3 Reps/Minutes 3x15 Comments cued head up tall posture, scap retraction/eccentric, painfree good effort Manual Therapy Treatment Soft Tissue Mobilization L Shoulder Body Location Pec, Biceps, coracobrachialis Mobilization Type Strumming Intensity/Depth Moderate Body Position Supine Comments Pt reports relief in L biceps. Joint Mobilizations Scap Joint L Direction Protraction, Retraction, inferior, superior Body Position Sidelying Reps/Duration 5' Comments Good feedback reponse. Slight guarded muscles, twinges throughout mobs in L arm. GH Jt Joint L Direction AP, inferior glide Grade II Body Position Hooklying Reps/Duration 5' Comments good feedback response, small twinges throughout L arm during mobs. PT-OP-R Modalities Start: 12/21/21 17:43 Freq: Status: Active Protocol: Document 12/28/21 08:12 NBM (Rec: 12/28/21 09:04 NBM [id number]) Hot Pack/Cold Pack Treatment Cold Pack Location L shoulder Patient Position Hooklying Treatment Duration (minutes) 10 Patient Tolerance Good PT-OP-T Assessment and Plan Start: 12/21/21 17:43 Freq: Status: Active Protocol: Document 01/18/22 13:45 SP (Rec: 01/18/22 14:36 SP [id number]) Physical Therapy Assessment Goals Two Impairment Pt limited to 131? flexion and 80? abduction in left shoulder Detention Goal (LTG) Pt to improve pain-free shoulder ROM to at least 135? in both flexion and abduction to improve ability to don/doff shirt and jacket without increased pain 01/18/22: progressin FF, 85 ABD. Pt demonstrates compensations into scaption, not measured. He states improving getting shirt/jacket on but still limiting. IR stretching helping with gaining this ROM. LTG Duration 02/20/21 improving 01/18/22 One Impairment Pt does not have an appropriate home exercise program Short Term Goal (STG) Pt to be independent and compliant with an appropriate HEP. 01/18/22: progressing: resisted shld ext and lateral walk walking forearms, AAROM wall walking stretch (IR, FF, scaption), open book. STG Duration 01/18/22 progressing LTG Duration 01/20/22 Progress Towards Goals Progress Comments L shld standing AROM: gained 5 deg ABD gained 11 deg FF gained 12 deg ER gained PSIS to L4 with IR See measurements 01/18/22 Assessment Summary Assessment Pt reported increase ROM with added stretching use wall IR, FF, scaption discomfort but finds is benefiting. States bicep tension better but still there. See MRI results in precautions. Physical Therapy Plan Frequency and Duration Frequency of Treatment 2x/Week Plan of Care Start Date 12/21/21 Plan of Care End Date 02/20/22 Therapeutic Interventions Therapeutic Interventions Home Exercise Program,Joint Mobilizations,Manual Therapy, Neuromuscular Re-education, Patient/Caregiver Education, Self-Care/Home Management,Soft Tissue Mobilization,Taping, Therapeutic Activities, Therapeutic Exercises, Vestibular Rehabilitation Modalities Cold Pack/Ice Massage,Electric Stimulation,Hot Packs, Ultrasound Other Referrals/Consults Referrals/Consults Recommended Pt would likely benefit from MRI/CT scan to rule in/rule out r/c tear due to worsening symptoms over more than six months. Next Visit Focus/Plan Next Note Type Treatment Note Next Visit Plan Recheck stretching form, how donning shirt/jacket? Next: progress ABD/ ER. Progress scap/shldr ex, 3 way shoulder, I's,Y's,T's, increase rows res.
--- NOTE | 2022-01-22 16:00 | PT.OTN ---
Current Diagnoses Pain in left shoulder (01/22/22) Pain in arm, unspecified (01/22/22) Physical Therapy Treatment Note PT-OP-A Visit Information Start: 12/21/21 17:43 Freq: Status: Active Protocol: Document 01/22/22 15:15 DCW (Rec: 01/22/22 16:00 DC [id number]) Out-Patient Physical Therapy Visit Information Visit Information Visit Type Progress Note Visit Note 10th visit Visit Start Time 15:15 Visit Stop Time 16:00 Total Visit Minutes 45 Visit Number 10 Number of BAR STAFF Visits 0 Evaluation Information Evaluation Date 12/21/21 Precautions Precautions 01/13/22: L shld MRI: 1. Low-grade articular and bursal surface partial thickness tear involving distal supraspinatus extending to musculotendinous junction. Distal infraspinatus tendinosis. No full-thickness rotator cuff tendon rupture. Mild supraspinatus muscle atrophy. 2. Moderate acromioclavicular joint osteoarthritis. No fracture or dislocation. Small amount of joint fluid and subacromial subdeltoid bursal fluid. 3. Suggestion of subtle superior anterior labral tear at 1 to 2 o'clock position. PT-OP-B Current Condition Start: 12/21/21 17:43 Freq: Status: Active Protocol: Document 12/21/21 09:45 DCW (Rec: 12/21/21 17:59 DCW [id number]) Current Condition History of Current Condition Onset Date Seven month history Current Complaints Left shoulder pain History of Current Condition Pt is a 81 year old male presenting with a seven month history of left shoulder pain. 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 Pt was seen by his PCP in July after hoping it would get better, and since then received a referral in October, and waiting to get in for PT since then. Pt reports his pain seems to be worsening,and is limiting his ability to perform his normal activities. Unable to do anything overhead, hurts to even reach back and put his jacket on, or to lay on his left side. Treatment Goals Patient/Caregiver Goals I just want to be pain-free. PT-OP-C Subjective Start: 12/21/21 17:43 Freq: Status: Active Protocol: Document 01/22/22 15:15 DCW (Rec: 01/22/22 16:00 DCW [id number]) OP-PT Subjective Patient Comments Patient Comments It's feeling better, as long as I don't move it. PT-OP-E Functional Tests Start: 12/21/21 17:43 Freq: Status: Active Protocol: Document 12/21/21 09:45 DCW (Rec: 12/21/21 17:59 DCW [id number]) Functional Tests Apley's Scratch Test Action 1- Left Anterior opposite shoulder Action 1- Right Posterior opposite shoulder Action 2- Left T3 Action 2- Right T3 Action 3- Left L PSIS Action 3- Right T11 PT-OP-F Manual Assessment Start: 12/21/21 17:43 Freq: Status: Active Protocol: Document 12/21/21 09:45 DCW (Rec: 12/21/21 17:59 DCW [id number]) Manual Assessments Soft Tissue Assessment Soft Tissue Mobility Assessment Tenderness to palpation 3/4: wincing and withdraw L Infraspinatus Tenderness to palpation 1/4: complaint of pain L LH biceps origin PT-OP-K Range of Motion Start: 12/21/21 17:43 Freq: Status: Active Protocol: Document 01/18/22 13:45 SP (Rec: 01/18/22 14:36 SP [id number]) Shoulder Goniometric Range of Motion Shoulder Left Active Shoulder ROM WFL No Testing Position Standing Flexion 142 Abduction 85 External Rotation at 0 degrees Abduction 65 Internal Rotation Behind Back (text) L4 Comments L shld standing AROM: gained 5 deg ABD gained 11 deg FF gained 12 deg ER gained PSIS to L4 with IR PT-OP-L Special Tests Start: 12/21/21 17:43 Freq: Status: Active Protocol: Document 12/21/21 09:45 DCW (Rec: 12/21/21 17:59 DCW [id number]) Special Tests Shoulder Special Tests Yergason's Biceps Test Results Negative Speed's Biceps Test Results Negative Passive ER Rotator Cuff Test Results Positive Left Painful Arc Test Results Positive Left Lift-Off Rotator Cuff Test Results Positive Left Crisostomo Aki Impingement Test Results Positive Left Grind Labrum Test Results Negative Empty Can Test Results Positive Left Belly Press Test Results Positive Left Apprehension Test Test Results Positive Left Anterior Draw Test Results Negative AC Joint Compression Test Results Negative PT-OP-M Strength Start: 12/21/21 17:43 Freq: Status: Active Protocol: Document 12/21/21 09:45 DCW (Rec: 12/21/21 17:59 DCW [id number]) Shoulder Strength Shoulder Manual Muscle Testing Right Flexion 5 Normal Abduction (C5) 5 Normal External Rotation 5 Normal Internal Rotation 5 Normal Left Flexion 3- Fair- Abduction (C5) 3- Fair- External Rotation 3- Fair- Internal Rotation 4+ Good+ Comments Unable to move through ROM against gravity secondary to pain PT-OP-Q Treatments Start: 12/21/21 17:43 Freq: Status: Active Protocol: Document 01/22/22 15:15 DCW (Rec: 01/22/22 16:00 DCW [id number]) Cardio Equipment Upper Body Ergometer (UBE) Duration (Minutes) 5 RPM 60 Seat Position 14 Height 3.5 Therapeutic Exercises Standing Exercises IR Stretch Standing Exercise Name Pulleys - IR Side left Extension Standing Exercise Name Shoulder Extension Side bilateral Resistance Lv 3 Reps/Minutes 3x15 Comments cued head up tall posture, scap retraction/eccentric, painfree good effort Manual Therapy Treatment Soft Tissue Mobilization L Shoulder Body Location Pec, Biceps, coracobrachialis Mobilization Type Strumming Intensity/Depth Moderate Body Position Supine Comments Pt reports relief in L biceps. neck, shld Body Location L UT, LS, suboccipital, SOR Mobilization Type Instrument Assisted,Strumming, Sustained Pressure,Other Intensity/Depth Moderate Body Position Hooklying Joint Mobilizations Scap Joint L Direction Protraction, Retraction, inferior, superior Body Position Sidelying Reps/Duration 5' Comments Good feedback reponse. Slight guarded muscles, twinges throughout mobs in L arm. GH Jt Joint L Direction AP, inferior glide Grade II Body Position Hooklying Reps/Duration 5' Comments good feedback response, small twinges throughout L arm during mobs. PT-OP-R Modalities Start: 12/21/21 17:43 Freq: Status: Active Protocol: Document 12/28/21 08:12 NBM (Rec: 12/28/21 09:04 NBM [id number]) Hot Pack/Cold Pack Treatment Cold Pack Location L shoulder Patient Position Hooklying Treatment Duration (minutes) 10 Patient Tolerance Good PT-OP-T Assessment and Plan Start: 12/21/21 17:43 Freq: Status: Active Protocol: Document 12/16/22 15:15 DCW (Rec: 01/22/22 16:00 DCW [id number]) Physical Therapy Assessment Goals Two Impairment Pt limited to 131? flexion and 80? abduction in left shoulder Detention Goal (LTG) Pt to improve pain-free shoulder ROM to at least 135? in both flexion and abduction to improve ability to don/doff shirt and jacket without increased pain 01/18/22: progressin FF, 85 ABD. Pt demonstrates compensations into scaption, not measured. He states improving getting shirt/jacket on but still limiting. IR stretching helping with gaining this ROM. LTG Duration 02/20/21 improving 01/18/22 One Impairment Pt does not have an appropriate home exercise program Short Term Goal (STG) Pt to be independent and compliant with an appropriate HEP. 01/18/22: progressing: resisted shld ext and lateral walk walking forearms, AAROM wall walking stretch (IR, FF, scaption), open book. STG Duration 02/20/22 progressing Assessment Summary Assessment Pt showing great improvement so far with AROM, doing very well with HEP, although he notes he would like assistance to go through his papers to see if there is a better order or a way to get rid of a few exercises. Both ROM and pain levels are significantly better, should benefit from continued therapy to return to normal pain-free function. Physical Therapy Plan Frequency and Duration Frequency of Treatment 2x/Week Plan of Care Start Date 12/21/21 Plan of Care End Date 02/20/22 Therapeutic Interventions Therapeutic Interventions Home Exercise Program,Joint Mobilizations,Manual Therapy, Neuromuscular Re-education, Patient/Caregiver Education, Self-Care/Home Management,Soft Tissue Mobilization,Taping, Therapeutic Activities, Therapeutic Exercises, Vestibular Rehabilitation Modalities Cold Pack/Ice Massage,Electric Stimulation,Hot Packs, Ultrasound Other Referrals/Consults Referrals/Consults Recommended Pt would likely benefit from MRI/CT scan to rule in/rule out r/c tear due to worsening symptoms over more than six months. Next Visit Focus/Plan Next Note Type Treatment Note Next Visit Plan Next: progress ABD/ ER. Progress scap/shldr ex, 3 way shoulder, I's,Y's,T's, increase rows res.
--- NOTE | 2022-01-25 13:45 | PT.OTN ---
Current Diagnoses Pain in left shoulder (01/25/22) Pain in arm, unspecified (01/25/22) Physical Therapy Treatment Note PT-OP-A Visit Information Start: 12/21/21 17:43 Freq: Status: Active Protocol: Document 01/25/22 13:07 SP (Rec: 01/25/22 13:50 SP [id number]) Out-Patient Physical Therapy Visit Information Visit Information Visit Type Treatment Note Visit Note 02/16 visit after PN Visit Start Time 13:07 Visit Stop Time 13:45 Total Visit Minutes 38 Visit Number 11 Number of ANESTHESIOLOGY TEACHER Visits 1 Evaluation Information Evaluation Date 12/21/21 Precautions Precautions 01/13/22: L shld MRI: 1. Low-grade articular and bursal surface partial thickness tear involving distal supraspinatus extending to musculotendinous junction. Distal infraspinatus tendinosis. No full-thickness rotator cuff tendon rupture. Mild supraspinatus muscle atrophy. 2. Moderate acromioclavicular joint osteoarthritis. No fracture or dislocation. Small amount of joint fluid and subacromial subdeltoid bursal fluid. 3. Suggestion of subtle superior anterior labral tear at 1 to 2 o'clock position. PT-OP-B Current Condition Start: 12/21/21 17:43 Freq: Status: Active Protocol: Document 12/21/21 09:45 DCW (Rec: 12/21/21 17:59 DCW [id number]) Current Condition History of Current Condition Onset Date Seven month history Current Complaints Left shoulder pain History of Current Condition Pt is a 81 year old male presenting with a seven month history of left shoulder pain. 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 Pt was seen by his PCP in July after hoping it would get better, and since then received a referral in October, and waiting to get in for PT since then. Pt reports his pain seems to be worsening,and is limiting his ability to perform his normal activities. Unable to do anything overhead, hurts to even reach back and put his jacket on, or to lay on his left side. Treatment Goals Patient/Caregiver Goals I just want to be pain-free. PT-OP-C Subjective Start: 12/21/21 17:43 Freq: Status: Active Protocol: Document 01/25/22 13:07 SP (Rec: 01/25/22 13:50 SP [id number]) OP-PT Subjective Patient Comments Patient Comments Pt reports is able to get his jacket on better L shld is both 1st and 2nd arm in jacket and hurts less. Steady progress. Pt had MRI completed 1-2 weeks ago. Patient Reported Progress Improving PT-OP-E Functional Tests Start: 12/21/21 17:43 Freq: Status: Active Protocol: Document 12/21/21 09:45 DCW (Rec: 12/21/21 17:59 DCW [id number]) Functional Tests Apley's Scratch Test Action 1- Left Anterior opposite shoulder Action 1- Right Posterior opposite shoulder Action 2- Left T3 Action 2- Right T3 Action 3- Left L PSIS Action 3- Right T11 PT-OP-F Manual Assessment Start: 12/21/21 17:43 Freq: Status: Active Protocol: Document 12/21/21 09:45 DCW (Rec: 12/21/21 17:59 DCW [id number]) Manual Assessments Soft Tissue Assessment Soft Tissue Mobility Assessment Tenderness to palpation 3/4: wincing and withdraw L Infraspinatus Tenderness to palpation 1/4: complaint of pain L LH biceps origin PT-OP-K Range of Motion Start: 12/21/21 17:43 Freq: Status: Active Protocol: Document 01/18/22 13:45 SP (Rec: 01/18/22 14:36 SP [id number]) Shoulder Goniometric Range of Motion Shoulder Left Active Shoulder ROM WFL No Testing Position Standing Flexion 142 Abduction 85 External Rotation at 0 degrees Abduction 65 Internal Rotation Behind Back (text) L4 Comments L shld standing AROM: gained 5 deg ABD gained 11 deg FF gained 12 deg ER gained PSIS to L4 with IR PT-OP-L Special Tests Start: 12/21/21 17:43 Freq: Status: Active Protocol: Document 12/21/21 09:45 DCW (Rec: 12/21/21 17:59 DCW [id number]) Special Tests Shoulder Special Tests Yergason's Biceps Test Results Negative Speed's Biceps Test Results Negative Passive ER Rotator Cuff Test Results Positive Left Painful Arc Test Results Positive Left Lift-Off Rotator Cuff Test Results Positive Left Crisostomo Aki Impingement Test Results Positive Left Grind Labrum Test Results Negative Empty Can Test Results Positive Left Belly Press Test Results Positive Left Apprehension Test Test Results Positive Left Anterior Draw Test Results Negative AC Joint Compression Test Results Negative PT-OP-M Strength Start: 12/21/21 17:43 Freq: Status: Active Protocol: Document 12/21/21 09:45 DCW (Rec: 12/21/21 17:59 DCW [id number]) Shoulder Strength Shoulder Manual Muscle Testing Right Flexion 5 Normal Abduction (C5) 5 Normal External Rotation 5 Normal Internal Rotation 5 Normal Left Flexion 3- Fair- Abduction (C5) 3- Fair- External Rotation 3- Fair- Internal Rotation 4+ Good+ Comments Unable to move through ROM against gravity secondary to pain PT-OP-Q Treatments Start: 12/21/21 17:43 Freq: Status: Active Protocol: Document 01/25/22 13:07 SP (Rec: 01/25/22 13:50 SP [id number]) Cardio Equipment Upper Body Ergometer (UBE) Duration (Minutes) 6 RPM 60 Seat Position 14 Height 3.5 Other f/b 1 min each direction, cued tall/ extension CS neutral,f 349 cycles Therapeutic Exercises Standing Exercises shld abd/ ER stretch Standing Exercise Name added to HEP Side left Reps/Minutes 5 reps hold 10-20s Comments cued no UT, no LB arch IR Stretch Standing Exercise Name Pulleys - IR Side left Equipment Used mirror use level B shld Reps/Minutes 10 s 5 reps Comments bicep stretch, cued slow good posture stretch, no UT recruitment wall walk FF doorframe Standing Exercise Name reviewed HEP- good response Side left Reps/Minutes 5 reps hold 20 s Comments no UT recruitment with breath, scap depression for improved pain-free range Extension Standing Exercise Name Shoulder Extension Side bilateral Resistance Lv 3>4 Reps/Minutes 3x20 Comments cued tall elbow straight, scap retraction/eccentric, painfree good effort ER/IR Standing Exercise Name Shoulder ER/IR Side left Resistance Lv 3> 4 Reps/Minutes 2x15 each direction Comments cues for scap/ GH Jt back/ depressed - good form/effort Manual Therapy Treatment Soft Tissue Mobilization L Shoulder Body Location Pec Minor>Major, Biceps, coracobrachialis Mobilization Type Strumming Intensity/Depth Moderate Body Position Supine Comments Pt reports relief in L biceps, pec. Ed MWM, pin pec minor RUE and various angle AROM LLE self tension releases. PT-OP-R Modalities Start: 12/21/21 17:43 Freq: Status: Active Protocol: Document 12/28/21 08:12 NBM (Rec: 12/28/21 09:04 NBM [id number]) Hot Pack/Cold Pack Treatment Cold Pack Location L shoulder Patient Position Hooklying Treatment Duration (minutes) 10 Patient Tolerance Good PT-OP-T Assessment and Plan Start: 12/21/21 17:43 Freq: Status: Active Protocol: Document 01/25/22 13:07 SP (Rec: 01/25/22 13:50 SP [id number]) Physical Therapy Assessment Goals Two Impairment Pt limited to 131? flexion and 80? abduction in left shoulder Correction Goal (LTG) Pt to improve pain-free shoulder ROM to at least 135? in both flexion and abduction to improve ability to don/doff shirt and jacket without increased pain 01/18/22: progressin FF, 85 ABD. Pt demonstrates compensations into scaption, not measured. He states improving getting shirt/jacket on but still limiting. IR stretching helping with gaining this ROM. LTG Duration 02/20/21 improving 01/18/22 One Impairment Pt does not have an appropriate home exercise program Short Term Goal (STG) Pt to be independent and compliant with an appropriate HEP. 01/18/22: progressing: resisted shld ext and lateral walk walking forearms, AAROM wall walking stretch (IR, FF, scaption), open book. STG Duration 02/20/22 progressing Assessment Summary Assessment Pt good feedback response to AAROM stretches with L shld and MWM pec Minor AROM. Able to increase L shld resistance IR/ ER/ Ext Lvl 4 TB this tx, with improved posturing with cues and use mirror. Physical Therapy Plan Frequency and Duration Frequency of Treatment 2x/Week Plan of Care Start Date 12/21/21 Plan of Care End Date 02/20/22 Therapeutic Interventions Therapeutic Interventions Home Exercise Program,Joint Mobilizations,Manual Therapy, Neuromuscular Re-education, Patient/Caregiver Education, Self-Care/Home Management,Soft Tissue Mobilization,Taping, Therapeutic Activities, Therapeutic Exercises, Vestibular Rehabilitation Modalities Cold Pack/Ice Massage,Electric Stimulation,Hot Packs, Ultrasound Next Visit Focus/Plan Next Note Type Treatment Note Next Visit Plan Recheck HEP: added pec stretch : abd/ ER standing/wall. Will make ceferino for home. Next: progress ABD/ ER. Progress scap/shldr ex, 3 way shoulder, I's,Y's,T's, increase rows res.
--- NOTE | 2022-02-02 15:58 | PT.OTN ---
Current Diagnoses Pain in left shoulder (02/02/22) Pain in arm, unspecified (02/02/22) Physical Therapy Treatment Note PT-OP-A Visit Information Start: 12/21/21 17:43 Freq: Status: Active Protocol: Document 02/02/22 15:15 DCW (Rec: 02/02/22 15:58 DCW [id number]) Out-Patient Physical Therapy Visit Information Visit Information Visit Type Treatment Note Visit Note 03/19 visit after PN Visit Start Time 15:15 Visit Stop Time 16:00 Total Visit Minutes 45 Visit Number 12 Number of HOMEWORKER Visits 0 Evaluation Information Evaluation Date 12/21/21 Precautions Precautions 01/13/22: L shld MRI: 1. Low-grade articular and bursal surface partial thickness tear involving distal supraspinatus extending to musculotendinous junction. Distal infraspinatus tendinosis. No full-thickness rotator cuff tendon rupture. Mild supraspinatus muscle atrophy. 2. Moderate acromioclavicular joint osteoarthritis. No fracture or dislocation. Small amount of joint fluid and subacromial subdeltoid bursal fluid. 3. Suggestion of subtle superior anterior labral tear at 1 to 2 o'clock position. PT-OP-B Current Condition Start: 12/21/21 17:43 Freq: Status: Active Protocol: Document 12/21/21 09:45 DCW (Rec: 12/21/21 17:59 DCW [id number]) Current Condition History of Current Condition Onset Date Seven month history Current Complaints Left shoulder pain History of Current Condition Pt is a 81 year old male presenting with a seven month history of left shoulder pain. 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 Pt was seen by his PCP in July after hoping it would get better, and since then received a referral in October, and waiting to get in for PT since then. Pt reports his pain seems to be worsening,and is limiting his ability to perform his normal activities. Unable to do anything overhead, hurts to even reach back and put his jacket on, or to lay on his left side. Treatment Goals Patient/Caregiver Goals I just want to be pain-free. PT-OP-C Subjective Start: 12/21/21 17:43 Freq: Status: Active Protocol: Document 12/27/22 15:15 DCW (Rec: 02/02/22 15:58 DCW [id number]) OP-PT Subjective Patient Comments Patient Comments It's more mobile, but I still have trouble reaching back. PT-OP-E Functional Tests Start: 12/21/21 17:43 Freq: Status: Active Protocol: Document 12/21/21 09:45 DCW (Rec: 12/21/21 17:59 DCW [id number]) Functional Tests Apley's Scratch Test Action 1- Left Anterior opposite shoulder Action 1- Right Posterior opposite shoulder Action 2- Left T3 Action 2- Right T3 Action 3- Left L PSIS Action 3- Right T11 PT-OP-F Manual Assessment Start: 12/21/21 17:43 Freq: Status: Active Protocol: Document 12/21/21 09:45 DCW (Rec: 12/21/21 17:59 DCW [id number]) Manual Assessments Soft Tissue Assessment Soft Tissue Mobility Assessment Tenderness to palpation 3/4: wincing and withdraw L Infraspinatus Tenderness to palpation 1/4: complaint of pain L LH biceps origin PT-OP-K Range of Motion Start: 12/21/21 17:43 Freq: Status: Active Protocol: Document 01/18/22 13:45 SP (Rec: 01/18/22 14:36 SP [id number]) Shoulder Goniometric Range of Motion Shoulder Left Active Shoulder ROM WFL No Testing Position Standing Flexion 142 Abduction 85 External Rotation at 0 degrees Abduction 65 Internal Rotation Behind Back (text) L4 Comments L shld standing AROM: gained 5 deg ABD gained 11 deg FF gained 12 deg ER gained PSIS to L4 with IR PT-OP-L Special Tests Start: 12/21/21 17:43 Freq: Status: Active Protocol: Document 12/21/21 09:45 DCW (Rec: 12/21/21 17:59 DCW [id number]) Special Tests Shoulder Special Tests Yergason's Biceps Test Results Negative Speed's Biceps Test Results Negative Passive ER Rotator Cuff Test Results Positive Left Painful Arc Test Results Positive Left Lift-Off Rotator Cuff Test Results Positive Left Crisostomo Aki Impingement Test Results Positive Left Grind Labrum Test Results Negative Empty Can Test Results Positive Left Belly Press Test Results Positive Left Apprehension Test Test Results Positive Left Anterior Draw Test Results Negative AC Joint Compression Test Results Negative PT-OP-M Strength Start: 12/21/21 17:43 Freq: Status: Active Protocol: Document 12/21/21 09:45 DCW (Rec: 12/21/21 17:59 DCW [id number]) Shoulder Strength Shoulder Manual Muscle Testing Right Flexion 5 Normal Abduction (C5) 5 Normal External Rotation 5 Normal Internal Rotation 5 Normal Left Flexion 3- Fair- Abduction (C5) 3- Fair- External Rotation 3- Fair- Internal Rotation 4+ Good+ Comments Unable to move through ROM against gravity secondary to pain PT-OP-Q Treatments Start: 12/21/21 17:43 Freq: Status: Active Protocol: Document 02/02/22 15:15 DCW (Rec: 02/02/22 15:58 DCW [id number]) Cardio Equipment Upper Body Ergometer (UBE) Duration (Minutes) 5 RPM 60 Seat Position 14 Height 3.5 Gym Equipment Shuttle Rebound Ball Toss Exercise Details Red weighted ball toss (Left) Therapeutic Exercises Sitting Exercises ER Sitting Exercise Name ER/IR in 90/90 Side left Resistance 4.4# green ball Standing Exercises Bodyblade Standing Exercise Name Bodyblade - Flexion, Abduction Side left IR Stretch Standing Exercise Name Pulleys - IR Side left Extension Standing Exercise Name Shoulder Extension Side bilateral Resistance 4 Reps/Minutes 2x15 Comments cued tall elbow straight, scap retraction/eccentric, painfree good effort ER/IR Standing Exercise Name Shoulder ER/IR Side left Resistance Lv 4 Reps/Minutes 2x15 each direction Comments cues for scap/ GH Jt back/ depressed - good form/effort Manual Therapy Treatment Soft Tissue Mobilization L Shoulder Body Location Pec, Biceps, coracobrachialis Mobilization Type Strumming Intensity/Depth Moderate Body Position Supine Comments Pt reports relief in L biceps. neck, shld Body Location L UT, LS, suboccipital, SOR Mobilization Type Instrument Assisted,Strumming, Sustained Pressure,Other Intensity/Depth Moderate Body Position Hooklying Joint Mobilizations Scap Joint L Direction Protraction, Retraction, inferior, superior Body Position Sidelying Reps/Duration 5' Comments Good feedback reponse. Slight guarded muscles, twinges throughout mobs in L arm. GH Jt Joint L Direction AP, inferior glide Grade II Body Position Hooklying Reps/Duration 5' Comments good feedback response, small twinges throughout L arm during mobs. PT-OP-R Modalities Start: 12/21/21 17:43 Freq: Status: Active Protocol: Document 12/28/21 08:12 NBM (Rec: 12/28/21 09:04 NBM [id number]) Hot Pack/Cold Pack Treatment Cold Pack Location L shoulder Patient Position Hooklying Treatment Duration (minutes) 10 Patient Tolerance Good PT-OP-T Assessment and Plan Start: 12/21/21 17:43 Freq: Status: Active Protocol: Document 02/02/22 15:15 DCW (Rec: 02/02/22 15:58 DCW [id number]) Physical Therapy Assessment Goals Two Impairment Pt limited to 131? flexion and 80? abduction in left shoulder Long-Term Goal (LTG) Pt to improve pain-free shoulder ROM to at least 135? in both flexion and abduction to improve ability to don/doff shirt and jacket without increased pain 01/18/22: progressin FF, 85 ABD. Pt demonstrates compensations into scaption, not measured. He states improving getting shirt/jacket on but still limiting. IR stretching helping with gaining this ROM. LTG Duration 02/20/21 improving 01/18/22 One Impairment Pt does not have an appropriate home exercise program Short Term Goal (STG) Pt to be independent and compliant with an appropriate HEP. 01/18/22: progressing: resisted shld ext and lateral walk walking forearms, AAROM wall walking stretch (IR, FF, scaption), open book. STG Duration 02/20/22 progressing Assessment Summary Assessment Pt continuing to show good progress overall, less difficulty with general pain and mobility, however still limited with ER/IR Physical Therapy Plan Frequency and Duration Frequency of Treatment 2x/Week Plan of Care Start Date 12/21/21 Plan of Care End Date 02/20/22 Therapeutic Interventions Therapeutic Interventions Home Exercise Program,Joint Mobilizations,Manual Therapy, Neuromuscular Re-education, Patient/Caregiver Education, Self-Care/Home Management,Soft Tissue Mobilization,Taping, Therapeutic Activities, Therapeutic Exercises, Vestibular Rehabilitation Modalities Cold Pack/Ice Massage,Electric Stimulation,Hot Packs, Ultrasound Next Visit Focus/Plan Next Note Type Treatment Note Next Visit Plan Recheck HEP: added pec stretch : abd/ ER standing/wall. Will make ceferino for home. Next: progress ABD/ ER. Progress scap/shldr ex, 3 way shoulder, I's,Y's,T's, increase rows res.
--- NOTE | 2022-02-05 15:58 | PT.OTN ---
Current Diagnoses Pain in left shoulder (02/05/22) Pain in arm, unspecified (02/05/22) Physical Therapy Treatment Note PT-OP-A Visit Information Start: 12/21/21 17:43 Freq: Status: Active Protocol: Document 02/05/22 15:15 DCW (Rec: 02/05/22 15:58 DCW [id number]) Out-Patient Physical Therapy Visit Information Visit Information Visit Type Treatment Note Visit Note 04/16 visit after PN Visit Start Time 15:15 Visit Stop Time 16:00 Total Visit Minutes 45 Visit Number 13 Number of SEAM HAMMERER Visits 0 Evaluation Information Evaluation Date 12/21/21 Precautions Precautions 01/13/22: L shld MRI: 1. Low-grade articular and bursal surface partial thickness tear involving distal supraspinatus extending to musculotendinous junction. Distal infraspinatus tendinosis. No full-thickness rotator cuff tendon rupture. Mild supraspinatus muscle atrophy. 2. Moderate acromioclavicular joint osteoarthritis. No fracture or dislocation. Small amount of joint fluid and subacromial subdeltoid bursal fluid. 3. Suggestion of subtle superior anterior labral tear at 1 to 2 o'clock position. PT-OP-B Current Condition Start: 12/21/21 17:43 Freq: Status: Active Protocol: Document 12/21/21 09:45 DCW (Rec: 12/21/21 17:59 DCW [id number]) Current Condition History of Current Condition Onset Date Seven month history Current Complaints Left shoulder pain History of Current Condition Pt is a 81 year old male presenting with a seven month history of left shoulder pain. 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 Pt was seen by his PCP in July after hoping it would get better, and since then received a referral in October, and waiting to get in for PT since then. Pt reports his pain seems to be worsening,and is limiting his ability to perform his normal activities. Unable to do anything overhead, hurts to even reach back and put his jacket on, or to lay on his left side. Treatment Goals Patient/Caregiver Goals I just want to be pain-free. PT-OP-C Subjective Start: 12/21/21 17:43 Freq: Status: Active Protocol: Document 02/05/22 15:15 DCW (Rec: 02/05/22 15:58 DCW [id number]) OP-PT Subjective Patient Comments Patient Comments I'm beginning to get the hand back there a little more, but I'm still surprised how much it bothers me. PT-OP-E Functional Tests Start: 12/21/21 17:43 Freq: Status: Active Protocol: Document 12/21/21 09:45 DCW (Rec: 12/21/21 17:59 DCW [id number]) Functional Tests Apley's Scratch Test Action 1- Left Anterior opposite shoulder Action 1- Right Posterior opposite shoulder Action 2- Left T3 Action 2- Right T3 Action 3- Left L PSIS Action 3- Right T11 PT-OP-F Manual Assessment Start: 12/21/21 17:43 Freq: Status: Active Protocol: Document 12/21/21 09:45 DCW (Rec: 12/21/21 17:59 DCW [id number]) Manual Assessments Soft Tissue Assessment Soft Tissue Mobility Assessment Tenderness to palpation 3/4: wincing and withdraw L Infraspinatus Tenderness to palpation 1/4: complaint of pain L LH biceps origin PT-OP-K Range of Motion Start: 12/21/21 17:43 Freq: Status: Active Protocol: Document 01/18/22 13:45 SP (Rec: 01/18/22 14:36 SP [id number]) Shoulder Goniometric Range of Motion Shoulder Left Active Shoulder ROM WFL No Testing Position Standing Flexion 142 Abduction 85 External Rotation at 0 degrees Abduction 65 Internal Rotation Behind Back (text) L4 Comments L shld standing AROM: gained 5 deg ABD gained 11 deg FF gained 12 deg ER gained PSIS to L4 with IR PT-OP-L Special Tests Start: 12/21/21 17:43 Freq: Status: Active Protocol: Document 12/21/21 09:45 DCW (Rec: 12/21/21 17:59 DCW [id number]) Special Tests Shoulder Special Tests Yergason's Biceps Test Results Negative Speed's Biceps Test Results Negative Passive ER Rotator Cuff Test Results Positive Left Painful Arc Test Results Positive Left Lift-Off Rotator Cuff Test Results Positive Left Crisostomo Aki Impingement Test Results Positive Left Grind Labrum Test Results Negative Empty Can Test Results Positive Left Belly Press Test Results Positive Left Apprehension Test Test Results Positive Left Anterior Draw Test Results Negative AC Joint Compression Test Results Negative PT-OP-M Strength Start: 12/21/21 17:43 Freq: Status: Active Protocol: Document 12/21/21 09:45 DCW (Rec: 12/21/21 17:59 DCW [id number]) Shoulder Strength Shoulder Manual Muscle Testing Right Flexion 5 Normal Abduction (C5) 5 Normal External Rotation 5 Normal Internal Rotation 5 Normal Left Flexion 3- Fair- Abduction (C5) 3- Fair- External Rotation 3- Fair- Internal Rotation 4+ Good+ Comments Unable to move through ROM against gravity secondary to pain PT-OP-Q Treatments Start: 12/21/21 17:43 Freq: Status: Active Protocol: Document 02/05/22 15:15 DCW (Rec: 02/05/22 15:58 DCW [id number]) Cardio Equipment Upper Body Ergometer (UBE) Duration (Minutes) 5 RPM 60 Seat Position 14 Height 3.5 Therapeutic Exercises Supine Exercises Serratus Punch Supine Exercise Name Serratus Punch Side bilateral Resistance 5# DB Horizontal Adduction Supine Exercise Name Supine horizontal adduction Side bilateral Resistance 5# DB Sitting Exercises ER Sitting Exercise Name ER/IR in 90/90 Side left Resistance 5.5# blue ball Standing Exercises Bodyblade Standing Exercise Name Bodyblade - Flexion, Abduction Side left Resistance Yellow Wall Clock Standing Exercise Name Wall Clock Side bilateral Resistance Red Lateral Wall Walk w/TB Equipment Used Red Reps/Minutes 2x10' IR Stretch Standing Exercise Name Pulleys - IR Side left Manual Therapy Treatment Soft Tissue Mobilization L Shoulder Body Location Pec, Biceps, coracobrachialis Mobilization Type Strumming Intensity/Depth Moderate Body Position Supine Comments Pt reports relief in L biceps. neck, shld Body Location L UT, LS, suboccipital, SOR Mobilization Type Instrument Assisted,Strumming, Sustained Pressure,Other Intensity/Depth Moderate Body Position Hooklying Joint Mobilizations Scap Joint L Direction Protraction, Retraction, inferior, superior Body Position Sidelying Reps/Duration 5' GH Jt Joint L Direction AP, inferior glide Grade II Body Position Hooklying Reps/Duration 5' PT-OP-R Modalities Start: 12/21/21 17:43 Freq: Status: Active Protocol: Document 12/28/21 08:12 NBM (Rec: 12/28/21 09:04 NBM [id number]) Hot Pack/Cold Pack Treatment Cold Pack Location L shoulder Patient Position Hooklying Treatment Duration (minutes) 10 Patient Tolerance Good PT-OP-T Assessment and Plan Start: 12/21/21 17:43 Freq: Status: Active Protocol: Document 02/05/22 15:15 DCW (Rec: 02/05/22 15:58 DCW [id number]) Physical Therapy Assessment Goals Two Impairment Pt limited to 131? flexion and 80? abduction in left shoulder Detention Goal (LTG) Pt to improve pain-free shoulder ROM to at least 135? in both flexion and abduction to improve ability to don/doff shirt and jacket without increased pain 01/18/22: progressin FF, 85 ABD. Pt demonstrates compensations into scaption, not measured. He states improving getting shirt/jacket on but still limiting. IR stretching helping with gaining this ROM. LTG Duration 02/20/21 improving 01/18/22 One Impairment Pt does not have an appropriate home exercise program Short Term Goal (STG) Pt to be independent and compliant with an appropriate HEP. 01/18/22: progressing: resisted shld ext and lateral walk walking forearms, AAROM wall walking stretch (IR, FF, scaption), open book. STG Duration 02/20/22 progressing Assessment Summary Assessment Increasing pain-free ROM overall, noticeable increase in internal rotation. Pt responds well to [employer]Ex Physical Therapy Plan Frequency and Duration Frequency of Treatment 2x/Week Plan of Care Start Date 12/21/21 Plan of Care End Date 02/20/22 Therapeutic Interventions Therapeutic Interventions Home Exercise Program,Joint Mobilizations,Manual Therapy, Neuromuscular Re-education, Patient/Caregiver Education, Self-Care/Home Management,Soft Tissue Mobilization,Taping, Therapeutic Activities, Therapeutic Exercises, Vestibular Rehabilitation Modalities Cold Pack/Ice Massage,Electric Stimulation,Hot Packs, Ultrasound Next Visit Focus/Plan Next Note Type Treatment Note Next Visit Plan Recheck HEP: added pec stretch : abd/ ER standing/wall. Will make ceferino for home. Next: progress ABD/ ER. Progress scap/shldr ex, 3 way shoulder, I's,Y's,T's, increase rows res.
--- NOTE | 2022-02-09 08:15 | PT.OTN ---
Current Diagnoses Pain in left shoulder (02/09/22) Pain in arm, unspecified (02/09/22) Physical Therapy Treatment Note PT-OP-A Visit Information Start: 12/21/21 17:43 Freq: Status: Active Protocol: Document 02/09/22 07:32 SP (Rec: 02/09/22 08:19 SP [id number]) Out-Patient Physical Therapy Visit Information Visit Information Visit Type Treatment Note Visit Note 05/17 visit after PN Visit Start Time 07:32 Visit Stop Time 08:15 Total Visit Minutes 43 Visit Number 14 Number of SUPER[employer]OR [employer] Visits 1 Evaluation Information Evaluation Date 12/21/21 Precautions Precautions 01/13/22: L shld MRI: 1. Low-grade articular and bursal surface partial thickness tear involving distal supraspinatus extending to musculotendinous junction. Distal infraspinatus tendinosis. No full-thickness rotator cuff tendon rupture. Mild supraspinatus muscle atrophy. 2. Moderate acromioclavicular joint osteoarthritis. No fracture or dislocation. Small amount of joint fluid and subacromial subdeltoid bursal fluid. 3. Suggestion of subtle superior anterior labral tear at 1 to 2 o'clock position. PT-OP-B Current Condition Start: 12/21/21 17:43 Freq: Status: Active Protocol: Document 12/21/21 09:45 DCW (Rec: 12/21/21 17:59 DCW [id number]) Current Condition History of Current Condition Onset Date Seven month history Current Complaints Left shoulder pain History of Current Condition Pt is a 81 year old male presenting with a seven month history of left shoulder pain. 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 Pt was seen by his PCP in July after hoping it would get better, and since then received a referral in October, and waiting to get in for PT since then. Pt reports his pain seems to be worsening,and is limiting his ability to perform his normal activities. Unable to do anything overhead, hurts to even reach back and put his jacket on, or to lay on his left side. Treatment Goals Patient/Caregiver Goals I just want to be pain-free. PT-OP-C Subjective Start: 12/21/21 17:43 Freq: Status: Active Protocol: Document 02/09/22 07:32 SP (Rec: 02/09/22 08:19 SP [id number]) OP-PT Subjective Patient Comments Patient Comments Pt reports doing well with bands, weights at the gym. PT-OP-E Functional Tests Start: 12/21/21 17:43 Freq: Status: Active Protocol: Document 12/21/21 09:45 DCW (Rec: 12/21/21 17:59 DCW [id number]) Functional Tests Apley's Scratch Test Action 1- Left Anterior opposite shoulder Action 1- Right Posterior opposite shoulder Action 2- Left T3 Action 2- Right T3 Action 3- Left L PSIS Action 3- Right T11 PT-OP-F Manual Assessment Start: 12/21/21 17:43 Freq: Status: Active Protocol: Document 12/21/21 09:45 DCW (Rec: 12/21/21 17:59 DCW [id number]) Manual Assessments Soft Tissue Assessment Soft Tissue Mobility Assessment Tenderness to palpation 3/4: wincing and withdraw L Infraspinatus Tenderness to palpation 1/4: complaint of pain L LH biceps origin PT-OP-K Range of Motion Start: 12/21/21 17:43 Freq: Status: Active Protocol: Document 02/09/22 07:32 SP (Rec: 02/09/22 08:19 SP [id number]) Shoulder Goniometric Range of Motion Shoulder Left Active Shoulder ROM WFL No Testing Position Standing Flexion 142 Extension 54 Abduction 159 External Rotation at 0 degrees Abduction 68 Internal Rotation Behind Back (text) L5 Comments L shld standing AROM: gained 74 deg ABD from 85 remains the same FF at 142 gained 3 deg ER less by 1 lumbar vertebra with IR L5 PT-OP-L Special Tests Start: 12/21/21 17:43 Freq: Status: Active Protocol: Document 12/21/21 09:45 DCW (Rec: 12/21/21 17:59 DCW [id number]) Special Tests Shoulder Special Tests Yergason's Biceps Test Results Negative Speed's Biceps Test Results Negative Passive ER Rotator Cuff Test Results Positive Left Painful Arc Test Results Positive Left Lift-Off Rotator Cuff Test Results Positive Left Crisostomo Aki Impingement Test Results Positive Left Grind Labrum Test Results Negative Empty Can Test Results Positive Left Belly Press Test Results Positive Left Apprehension Test Test Results Positive Left Anterior Draw Test Results Negative AC Joint Compression Test Results Negative PT-OP-M Strength Start: 12/21/21 17:43 Freq: Status: Active Protocol: Document 12/21/21 09:45 DCW (Rec: 12/21/21 17:59 DCW [id number]) Shoulder Strength Shoulder Manual Muscle Testing Right Flexion 5 Normal Abduction (C5) 5 Normal External Rotation 5 Normal Internal Rotation 5 Normal Left Flexion 3- Fair- Abduction (C5) 3- Fair- External Rotation 3- Fair- Internal Rotation 4+ Good+ Comments Unable to move through ROM against gravity secondary to pain PT-OP-Q Treatments Start: 12/21/21 17:43 Freq: Status: Active Protocol: Document 02/09/22 07:32 SP (Rec: 02/09/22 08:19 SP [id number]) Cardio Equipment Upper Body Ergometer (UBE) Duration (Minutes) 5 RPM 60 Seat Position 14 Height 3.5 Other f/b 1 min each Therapeutic Exercises Supine Exercises ABD ER Supine Exercise Name 90/90: intiated in PT (might add at home) declined HO Side left Resistance #3 DB Reps/Minutes x8 reps Comments cued maintain ABD 90deg, slow controlled IR/ ER Serratus Punch Supine Exercise Name Serratus Punch Side bilateral Resistance 5# DB Equipment Used over foam roller Reps/Minutes x20 Comments occasional cues for no UT recruitment Horizontal Adduction Supine Exercise Name Supine HADD<> HABD Side bilateral Resistance 5# DB Equipment Used over foam roller Reps/Minutes x20 Comments occasional cues for no UT recruitment foam roller Supine Exercise Name 1. pec stretch 2. snow angels Side bilateral Resistance AROM Reps/Minutes 30s, x10 reps S. A. Comments cued slow painfree AROM, good response Standing Exercises IR Stretch Standing Exercise Name Pulleys - IR Side left Reps/Minutes 20s x3 Comments good feedback stretch Other Exercises 1/2 kneel eccentric FF, ABD Other Exercise Name initiated 1/3 Side left Equipment Used foam under R knee Reps/Minutes x15 Comments good feedback AAROM stretch Manual Therapy Treatment Soft Tissue Mobilization L Shoulder Body Location Pec, Biceps, coracobrachialis Mobilization Type Strumming Intensity/Depth Moderate Body Position Supine Comments Pt reports relief in L biceps. neck, shld Body Location L UT, LS, suboccipital, SOR Mobilization Type Strumming,Sustained Pressure, Other Intensity/Depth Moderate Body Position Hooklying Comments manual, discussion use ball on wall. Joint Mobilizations Scap Joint L Direction Protraction, Retraction, inferior, superior Body Position Sidelying Reps/Duration 5' GH Jt Joint L Direction AP, inferior glide Grade II Body Position Hooklying Reps/Duration 5' PT-OP-R Modalities Start: 12/21/21 17:43 Freq: Status: Active Protocol: Document 12/28/21 08:12 NBM (Rec: 12/28/21 09:04 NBM [id number]) Hot Pack/Cold Pack Treatment Cold Pack Location L shoulder Patient Position Hooklying Treatment Duration (minutes) 10 Patient Tolerance Good PT-OP-T Assessment and Plan Start: 12/21/21 17:43 Freq: Status: Active Protocol: Document 02/09/22 07:32 SP (Rec: 02/09/22 08:19 SP [id number]) Physical Therapy Assessment Goals Two Impairment Pt limited to 131? flexion and 80? abduction in left shoulder Rehab Therapy Manager Goal (LTG) Pt to improve pain-free shoulder ROM to at least 135? in both flexion and abduction to improve ability to don/doff shirt and jacket without increased pain 01/18/22: progressin FF, 85 ABD. Pt demonstrates compensations into scaption, not measured. He states improving getting shirt/jacket on but still limiting. IR stretching helping with gaining this ROM. 02/09/21: Goal MET: 159 ABD, remained 142 FF. LTG Duration 02/20/21 goal met One Impairment Pt does not have an appropriate home exercise program Short Term Goal (STG) Pt to be independent and compliant with an appropriate HEP. 01/18/22: progressing: resisted shld ext and lateral walk walking forearms, AAROM wall walking stretch (IR, FF, scaption), open book. 02/09/21: intiated STG Duration 02/20/22 progressing Progress Towards Goals Progress Towards Goals Progressing Toward Goals Progress Comments L shld standing AROM: gained 74 deg ABD from 85 remains the same FF at 142 gained 3 deg ER less by 1 lumbar vertebra with IR L5 MET LTG #2: L shld ABD, FF > 135 deg (FF 142 deg, ABD 159 deg) Assessment Summary Assessment Pt improved FF and ABD OH assisted ROM w/ TB in 1/2 kneel trialed today cued for slow pacing and use of TA to allow safety stability. Pt made significant progress in ABD since last tx of 74 degrees in standing. Still seems to be limited in IR behind back, ABD/ ER to reach and don coat and car seat belt. Physical Therapy Plan Frequency and Duration Frequency of Treatment 2x/Week Plan of Care Start Date 12/21/21 Plan of Care End Date 02/20/22 Therapeutic Interventions Therapeutic Interventions Home Exercise Program,Joint Mobilizations,Manual Therapy, Neuromuscular Re-education, Patient/Caregiver Education, Self-Care/Home Management,Soft Tissue Mobilization,Taping, Therapeutic Activities, Therapeutic Exercises, Vestibular Rehabilitation Modalities Cold Pack/Ice Massage,Electric Stimulation,Hot Packs, Ultrasound Next Visit Focus/Plan Next Note Type Treatment Note Next Visit Plan Recheck mobility over foam roller AROM/wt, added pec stretch: abd/ ER standing/wall . Will make ceferino for home. Next: progress ABD/ ER. Progress scap/shldr ex, 3 way shoulder, I's,Y's,T's, increase rows res.
--- NOTE | 2022-02-15 11:15 | PT.OTN ---
Current Diagnoses Pain in left shoulder (02/15/22) Pain in arm, unspecified (02/15/22) Physical Therapy Treatment Note PT-OP-A Visit Information Start: 12/21/21 17:43 Freq: Status: Active Protocol: Document 02/15/22 10:33 SP (Rec: 02/15/22 11:47 SP [id number]) Out-Patient Physical Therapy Visit Information Visit Information Visit Type Treatment Note Visit Note Updated POC next tx, expires Visit Start Time 10:33 Visit Stop Time 11:15 Total Visit Minutes 42 Visit Number 15 Number of DATA VIRTUALIZATION CONSULTANT Visits 2 Evaluation Information Evaluation Date 12/21/21 Precautions Precautions 01/13/22: L shld MRI: 1. Low-grade articular and bursal surface partial thickness tear involving distal supraspinatus extending to musculotendinous junction. Distal infraspinatus tendinosis. No full-thickness rotator cuff tendon rupture. Mild supraspinatus muscle atrophy. 2. Moderate acromioclavicular joint osteoarthritis. No fracture or dislocation. Small amount of joint fluid and subacromial subdeltoid bursal fluid. 3. Suggestion of subtle superior anterior labral tear at 1 to 2 o'clock position. PT-OP-B Current Condition Start: 12/21/21 17:43 Freq: Status: Active Protocol: Document 12/21/21 09:45 DCW (Rec: 12/21/21 17:59 DCW [id number]) Current Condition History of Current Condition Onset Date Seven month history Current Complaints Left shoulder pain History of Current Condition Pt is a 81 year old male presenting with a seven month history of left shoulder pain. 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 Pt was seen by his PCP in July after hoping it would get better, and since then received a referral in October, and waiting to get in for PT since then. Pt reports his pain seems to be worsening,and is limiting his ability to perform his normal activities. Unable to do anything overhead, hurts to even reach back and put his jacket on, or to lay on his left side. Treatment Goals Patient/Caregiver Goals I just want to be pain-free. PT-OP-C Subjective Start: 12/21/21 17:43 Freq: Status: Active Protocol: Document 02/15/22 10:33 SP (Rec: 02/15/22 11:47 SP [id number]) OP-PT Subjective Patient Comments Patient Comments Pt reports PT-OP-E Functional Tests Start: 12/21/21 17:43 Freq: Status: Active Protocol: Document 12/21/21 09:45 DCW (Rec: 12/21/21 17:59 DCW [id number]) Functional Tests Apley's Scratch Test Action 1- Left Anterior opposite shoulder Action 1- Right Posterior opposite shoulder Action 2- Left T3 Action 2- Right T3 Action 3- Left L PSIS Action 3- Right T11 PT-OP-F Manual Assessment Start: 12/21/21 17:43 Freq: Status: Active Protocol: Document 12/21/21 09:45 DCW (Rec: 12/21/21 17:59 DCW [id number]) Manual Assessments Soft Tissue Assessment Soft Tissue Mobility Assessment Tenderness to palpation 3/4: wincing and withdraw L Infraspinatus Tenderness to palpation 1/4: complaint of pain L LH biceps origin PT-OP-K Range of Motion Start: 12/21/21 17:43 Freq: Status: Active Protocol: Document 02/09/22 07:32 SP (Rec: 02/09/22 08:19 SP [id number]) Shoulder Goniometric Range of Motion Shoulder Left Active Shoulder ROM WFL No Testing Position Standing Flexion 142 Extension 54 Abduction 159 External Rotation at 0 degrees Abduction 68 Internal Rotation Behind Back (text) L5 Comments L shld standing AROM: gained 74 deg ABD from 85 remains the same FF at 142 gained 3 deg ER less by 1 lumbar vertebra with IR L5 PT-OP-L Special Tests Start: 12/21/21 17:43 Freq: Status: Active Protocol: Document 12/21/21 09:45 DCW (Rec: 12/21/21 17:59 DCW [id number]) Special Tests Shoulder Special Tests Yergason's Biceps Test Results Negative Speed's Biceps Test Results Negative Passive ER Rotator Cuff Test Results Positive Left Painful Arc Test Results Positive Left Lift-Off Rotator Cuff Test Results Positive Left Crisostomo Aki Impingement Test Results Positive Left Grind Labrum Test Results Negative Empty Can Test Results Positive Left Belly Press Test Results Positive Left Apprehension Test Test Results Positive Left Anterior Draw Test Results Negative AC Joint Compression Test Results Negative PT-OP-M Strength Start: 12/21/21 17:43 Freq: Status: Active Protocol: Document 12/21/21 09:45 DCW (Rec: 12/21/21 17:59 DCW [id number]) Shoulder Strength Shoulder Manual Muscle Testing Right Flexion 5 Normal Abduction (C5) 5 Normal External Rotation 5 Normal Internal Rotation 5 Normal Left Flexion 3- Fair- Abduction (C5) 3- Fair- External Rotation 3- Fair- Internal Rotation 4+ Good+ Comments Unable to move through ROM against gravity secondary to pain PT-OP-Q Treatments Start: 12/21/21 17:43 Freq: Status: Active Protocol: Document 02/15/22 10:33 SP (Rec: 02/15/22 11:47 SP [id number]) Cardio Equipment Upper Body Ergometer (UBE) Duration (Minutes) 5 RPM 50 Seat Position 14 Height 3.5, handles 4.5 Other f/b 1 min each, 50-55, cues for tall posture/CS neutral Gym Equipment Cable Column (Body Solid) lat pull down, rows Details cued tall posture scap retract /depre con/ ecc Resistance 20#PD, 30# Rows Reps/Time x20, hold 1-2sec Therapeutic Exercises Supine Exercises ABD ER Supine Exercise Name 90/90: intiated in PT 02/09/22, not performed 02/15 Side left Resistance #3 DB Equipment Used IR/ ER, ABD 90deg Comments continue in next tx Horizontal Adduction Supine Exercise Name Supine HADD<> HABD Side bilateral Resistance 5# DB Equipment Used table 02/15 (foam roller past) Reps/Minutes x20 Comments cued slow controll Sitting Exercises adduction Sitting Exercise Name initiated in PT (standing and sit) Side left Resistance cable top plate stand, TB #3 ( choke up band better) Equipment Used therapist SBA seated on 65Cm ball (in PT only safety- next 75cm tball) Reps/Minutes x10 Comments cued scap retract/depress and eccentric ABD, scap/core ADD- impr LT/UR/DR Standing Exercises D1 extension Standing Exercise Name initiated inPT Side left Resistance cable top plate/no pin (trial TB #3 next tx) Reps/Minutes x10 Comments cued tall posture, scap retract/depress, allow eccentric across body return Other Exercises 1/2 kneel eccentric FF, ABD Other Exercise Name reviewed FF, ABD (1/2 kneel and seated in chair- best chair safety stabil) Side left Resistance Tb #2 Equipment Used foam under L knee- unstable ( best seated in chair) Reps/Minutes 5SHx8 reps each directions ( angle seat for ABD AAROM) Comments cued slow eccentric, allow humeral inferior glide with LT fac- feels better Manual Therapy Treatment Soft Tissue Mobilization L Shoulder Body Location Pec, Biceps, coracobrachialis Mobilization Type Strumming,Sustained Pressure, Other Intensity/Depth Moderate Body Position Supine Comments Manual strum, pin muscle with PROM punch, FF ROM with noted humeral head posterior and inferior glide with reps. Pt reports relief in L biceps. Manual Techniques Manual L bicep stretch Type gentle PROM HABD/ extension jessy ROM jessy stretch, various angles Body Location L bicep Body Position Hooklying Reps/Duration 3 reps, 10 sec hold Comments cued slow active wrist flex/ ext PT-OP-R Modalities Start: 12/21/21 17:43 Freq: Status: Active Protocol: Document 12/28/21 08:12 NBM (Rec: 12/28/21 09:04 NBM [id number]) Hot Pack/Cold Pack Treatment Cold Pack Location L shoulder Patient Position Hooklying Treatment Duration (minutes) 10 Patient Tolerance Good PT-OP-T Assessment and Plan Start: 12/21/21 17:43 Freq: Status: Active Protocol: Document 02/15/22 10:33 SP (Rec: 02/15/22 11:47 SP [id number]) Physical Therapy Assessment Goals Two Impairment Pt limited to 131? flexion and 80? abduction in left shoulder Half-Way Goal (LTG) Pt to improve pain-free shoulder ROM to at least 135? in both flexion and abduction to improve ability to don/doff shirt and jacket without increased pain 01/18/22: progressin FF, 85 ABD. Pt demonstrates compensations into scaption, not measured. He states improving getting shirt/jacket on but still limiting. IR stretching helping with gaining this ROM. 02/09/21: Goal MET: 159 ABD, remained 142 FF. LTG Duration 02/20/21 goal met One Impairment Pt does not have an appropriate home exercise program Short Term Goal (STG) Pt to be independent and compliant with an appropriate HEP. 01/18/22: progressing: resisted shld ext and lateral walk walking forearms, AAROM wall walking stretch (IR, FF, scaption), open book. 02/09/21: intiated STG Duration 02/20/22 progressing Assessment Summary Assessment Pt reported L shld anterior shld/proximal bicep pain 4- end tx post ther ex, emphasis scapular stab and ABD / ER AAROM to allow reaching OH and out to side. Decreased tension post manual, suggested CP at home for comfort assist . Cues for slow controlled movement to allow scapular stab and scapular-humeral ROM, continues be limited in LUE ABD/ ER. Physical Therapy Plan Frequency and Duration Frequency of Treatment 2x/Week Plan of Care Start Date 12/21/21 Plan of Care End Date 02/20/22 Therapeutic Interventions Therapeutic Interventions Home Exercise Program,Joint Mobilizations,Manual Therapy, Neuromuscular Re-education, Patient/Caregiver Education, Self-Care/Home Management,Soft Tissue Mobilization,Taping, Therapeutic Activities, Therapeutic Exercises, Vestibular Rehabilitation Modalities Cold Pack/Ice Massage,Electric Stimulation,Hot Packs, Ultrasound Next Visit Focus/Plan Next Note Type Progress Note Next Visit Plan Ask response to last tx, emphasis on ABD, ER AROM and introduction machines to use at [facility]. Next: progress ABD/ ER. Progress scap/shldr ex, initiate PRone I's,Y's,T's, increase rows res.
--- NOTE | 2022-02-17 16:44 | PT.OTN ---
Current Diagnoses Pain in left shoulder (02/17/22) Pain in arm, unspecified (02/17/22) Physical Therapy Treatment Note PT-OP-A Visit Information Start: 12/21/21 17:43 Freq: Status: Active Protocol: Document 02/17/22 16:00 DCW (Rec: 02/17/22 16:44 DCW [id number]) Out-Patient Physical Therapy Visit Information Visit Information Visit Type Progress Note Visit Start Time 16:00 Visit Stop Time 16:45 Total Visit Minutes 45 Visit Number 16 Number of TIMING MACHINE OPERATOR Visits 0 Evaluation Information Evaluation Date 12/21/21 Precautions Precautions 01/13/22: L shld MRI: 1. Low-grade articular and bursal surface partial thickness tear involving distal supraspinatus extending to musculotendinous junction. Distal infraspinatus tendinosis. No full-thickness rotator cuff tendon rupture. Mild supraspinatus muscle atrophy. 2. Moderate acromioclavicular joint osteoarthritis. No fracture or dislocation. Small amount of joint fluid and subacromial subdeltoid bursal fluid. 3. Suggestion of subtle superior anterior labral tear at 1 to 2 o'clock position. PT-OP-B Current Condition Start: 12/21/21 17:43 Freq: Status: Active Protocol: Document 12/21/21 09:45 DCW (Rec: 12/21/21 17:59 DCW [id number]) Current Condition History of Current Condition Onset Date Seven month history Current Complaints Left shoulder pain History of Current Condition Pt is a 81 year old male presenting with a seven month history of left shoulder pain. 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 Pt was seen by his PCP in July after hoping it would get better, and since then received a referral in October, and waiting to get in for PT since then. Pt reports his pain seems to be worsening,and is limiting his ability to perform his normal activities. Unable to do anything overhead, hurts to even reach back and put his jacket on, or to lay on his left side. Treatment Goals Patient/Caregiver Goals I just want to be pain-free. PT-OP-C Subjective Start: 12/21/21 17:43 Freq: Status: Active Protocol: Document 02/17/22 16:00 DCW (Rec: 02/17/22 16:44 DCW [id number]) OP-PT Subjective Patient Comments Patient Comments Pt reports he is progressing well, he is able to do more activities, but still fairly limited with biceps pain. I' ve been able to get into my jacket with minimal discomfort . PT-OP-E Functional Tests Start: 12/21/21 17:43 Freq: Status: Active Protocol: Document 02/17/22 16:00 DCW (Rec: 02/17/22 16:18 DCW [id number]) Functional Tests Apley's Scratch Test Action 1- Left Posterior opposite shoulder Action 1- Right Posterior opposite shoulder Action 2- Left T3 Action 2- Right T3 Action 3- Left L2 Action 3- Right T11 PT-OP-F Manual Assessment Start: 12/21/21 17:43 Freq: Status: Active Protocol: Document 02/17/22 16:00 DCW (Rec: 02/17/22 16:18 DCW [id number]) Manual Assessments Soft Tissue Assessment Soft Tissue Mobility Assessment Tenderness to palpation /: complaint of pain L LH biceps origin, infraspinatus PT-OP-K Range of Motion Start: 12/21/21 17:43 Freq: Status: Active Protocol: Document 02/17/22 16:00 DCW (Rec: 02/17/22 16:18 DCW [id number]) Shoulder Goniometric Range of Motion Shoulder Left Active Shoulder ROM WFL No Testing Position Sitting Flexion 143 Abduction 161 External Rotation at 0 degrees Abduction 63 Internal Rotation Behind Back (text) L2 PT-OP-L Special Tests Start: 12/21/21 17:43 Freq: Status: Active Protocol: Document 02/17/22 16:00 DCW (Rec: 02/17/22 16:18 DCW [id number]) Special Tests Shoulder Special Tests Yergason's Biceps Test Results Negative Speed's Biceps Test Results Negative Passive ER Rotator Cuff Test Results Negative Painful Arc Test Results Positive Left Lift-Off Rotator Cuff Test Results Positive Left Crisostomo Aki Impingement Test Results Positive Left Grind Labrum Test Results Negative Empty Can Test Results Negative Belly Press Test Results Left biceps pain Apprehension Test Test Results Negative Anterior Draw Test Results Negative AC Joint Compression Test Results Negative PT-OP-M Strength Start: 12/21/21 17:43 Freq: Status: Active Protocol: Document 02/17/22 16:00 DCW (Rec: 02/17/22 16:18 DCW [id number]) Shoulder Strength Shoulder Manual Muscle Testing Right Flexion 5 Normal Abduction (C5) 5 Normal External Rotation 5 Normal Internal Rotation 5 Normal Left Flexion 3+ Fair+ Abduction (C5) 3+ Fair+ External Rotation 4 Good Internal Rotation 4+ Good+ PT-OP-Q Treatments Start: 12/21/21 17:43 Freq: Status: Active Protocol: Document 02/17/22 16:00 DCW (Rec: 02/17/22 16:44 DCW [id number]) Cardio Equipment Upper Body Ergometer (UBE) Duration (Minutes) 5 RPM 50 Seat Position 14 Height 3.5, handles 4.5 Other f/b 1 min each, 50-55, cues for tall posture/CS neutral Manual Therapy Treatment Soft Tissue Mobilization L Shoulder Body Location Pec, Biceps, coracobrachialis Mobilization Type Strumming Intensity/Depth Moderate Body Position Supine Comments Pt reports relief in L biceps. neck, shld Body Location L UT, LS, suboccipital, SOR Mobilization Type Strumming,Sustained Pressure, Other Intensity/Depth Moderate Body Position Hooklying Comments manual, discussion use ball on wall. Joint Mobilizations Scap Joint L Direction Protraction, Retraction, inferior, superior Body Position Sidelying Reps/Duration 5' GH Jt Joint L Direction AP, inferior glide Grade II Body Position Hooklying Reps/Duration 5' PT-OP-R Modalities Start: 12/21/21 17:43 Freq: Status: Active Protocol: Document 12/28/21 08:12 NBM (Rec: 12/28/21 09:04 NBM [id number]) Hot Pack/Cold Pack Treatment Cold Pack Location L shoulder Patient Position Hooklying Treatment Duration (minutes) 10 Patient Tolerance Good PT-OP-T Assessment and Plan Start: 12/21/21 17:43 Freq: Status: Active Protocol: Document 02/17/22 16:00 DCW (Rec: 02/17/22 16:44 DCW [id number]) Physical Therapy Assessment Impairments Impairments Functional Activities, Functional Mobility,Pain,ROM, Soft Tissue Mobility,Strength, Tone Goals Two Impairment Pt limited to 131? flexion and 80? abduction in left shoulder Tire Mold Engraver Goal (LTG) Pt to improve pain-free shoulder ROM to at least 135? in both flexion and abduction to improve ability to don/doff shirt and jacket without increased pain 01/18/22: progressin FF, 85 ABD. Pt demonstrates compensations into scaption, not measured. He states improving getting shirt/jacket on but still limiting. IR stretching helping with gaining this ROM. 02/09/21: Goal MET: 159 ABD, remained 142 FF. LTG Duration 02/20/21 goal met One Impairment Pt does not have an appropriate home exercise program Short Term Goal (STG) Pt to be independent and compliant with an appropriate HEP. 01/18/22: progressing: resisted shld ext and lateral walk walking forearms, AAROM wall walking stretch (IR, FF, scaption), open book. 02/09/21: intiated STG Duration 04/06/22 progressing Progress Towards Goals Progress Towards Goals Progressing Toward Goals Assessment Summary Assessment Pt progressing well overall, showing some good improvement in ROM and pain control, significant improvement in overall pain, fewer positive special tests. Still experiencing pain with reaching back, pain with internal rotation, and biceps pain in a reported random pattern with nothing specific making it better or worse. Pt should continue to benefit from skilled therapy focusing on ROM, strengthening, and functional mobility. Physical Therapy Plan Frequency and Duration Frequency of Treatment 2x/Week Plan of Care Start Date 02/17/22 Plan of Care End Date 04/06/22 Therapeutic Interventions Therapeutic Interventions Home Exercise Program,Joint Mobilizations,Manual Therapy, Neuromuscular Re-education, Patient/Caregiver Education, Self-Care/Home Management,Soft Tissue Mobilization,Taping, Therapeutic Activities, Therapeutic Exercises, Vestibular Rehabilitation Modalities Cold Pack/Ice Massage,Electric Stimulation,Hot Packs, Ultrasound Next Visit Focus/Plan Next Note Type Treatment Note Next Visit Plan Ask response to last tx, emphasis on ABD, ER AROM and introduction machines to use at [facility]. Next: progress ABD/ ER. Progress scap/shldr ex, initiate Prone I's,Y's,T's, increase rows res.
--- NOTE | 2022-02-17 16:44 | PT.OPPOC ---
Physical, Occupational & Speech Therapy At [facility] Current Diagnoses Pain in left shoulder (02/17/22) Pain in arm, unspecified (02/17/22) Visit Care Team Role Provider Type Hector Daugherty MD Family Provider Physician Primary Care Provider Specialty: Internal Medicine Address: [address] [place] [address], [address], [address] Email: [email or web address] Doug Montaño MD Attending Provider Physician Referring Provider Specialty: Internal Medicine Address: [address] [place] [address], [address], [address] Email: [email or web address] Plan Of Care PT-OP-T Assessment and Plan Start: 12/21/21 17:43 Freq: Status: Active Protocol: Document 02/17/22 16:00 DCW (Rec: 02/17/22 16:44 DCW [id number]) Physical Therapy Assessment Impairments Impairments Functional Activities, Functional Mobility,Pain,ROM, Soft Tissue Mobility,Strength, Tone Goals Two Impairment Pt limited to 131? flexion and 80? abduction in left shoulder Color Making Supervisor Goal (LTG) Pt to improve pain-free shoulder ROM to at least 135? in both flexion and abduction to improve ability to don/doff shirt and jacket without increased pain 01/18/22: progressin FF, 85 ABD. Pt demonstrates compensations into scaption, not measured. He states improving getting shirt/jacket on but still limiting. IR stretching helping with gaining this ROM. 02/09/21: Goal MET: 159 ABD, remained 142 FF. LTG Duration 02/20/21 goal met One Impairment Pt does not have an appropriate home exercise program Short Term Goal (STG) Pt to be independent and compliant with an appropriate HEP. 01/18/22: progressing: resisted shld ext and lateral walk walking forearms, AAROM wall walking stretch (IR, FF, scaption), open book. 02/09/21: intiated STG Duration 04/06/22 progressing Progress Towards Goals Progress Towards Goals Progressing Toward Goals Assessment Summary Assessment Pt progressing well overall, showing some good improvement in ROM and pain control, significant improvement in overall pain, fewer positive special tests. Still experiencing pain with reaching back, pain with internal rotation, and biceps pain in a reported random pattern with nothing specific making it better or worse. Pt should continue to benefit from skilled therapy focusing on ROM, strengthening, and functional mobility. Physical Therapy Plan Frequency and Duration Frequency of Treatment 2x/Week Plan of Care Start Date 02/17/22 Plan of Care End Date 04/06/22 Therapeutic Interventions Therapeutic Interventions Home Exercise Program,Joint Mobilizations,Manual Therapy, Neuromuscular Re-education, Patient/Caregiver Education, Self-Care/Home Management,Soft Tissue Mobilization,Taping, Therapeutic Activities, Therapeutic Exercises, Vestibular Rehabilitation Modalities Cold Pack/Ice Massage,Electric Stimulation,Hot Packs, Ultrasound Next Visit Focus/Plan Next Note Type Treatment Note Next Visit Plan Ask response to last tx, emphasis on ABD, ER AROM and introduction machines to use at [facility]. Next: progress ABD/ ER. Progress scap/shldr ex, initiate Prone I's,Y's,T's, increase rows res. Plan of Care Dates Plan of Care Start Date 02/17/22 Plan of Care End Date 04/06/22 Electronically Signed by: Vladimir Lomeli, PT 02/17/22 5210 If you are in agreement with this Plan of Care, please return a signed and dated copy. I have reviewed this Plan of Care and certify that the skilled therapy services above are required to meet the patient?s needs. Physician Signature Date Printed Name and Credentials Clinical Instructor Signature Printed Name and Credentials
--- NOTE | 2022-02-23 08:58 | PT.OTN ---
Current Diagnoses Pain in left shoulder (02/23/22) Pain in arm, unspecified (02/23/22) Physical Therapy Treatment Note PT-OP-A Visit Information Start: 12/21/21 17:43 Freq: Status: Active Protocol: Document 02/23/22 08:18 SP (Rec: 02/23/22 09:03 SP [id number]) Out-Patient Physical Therapy Visit Information Visit Information Visit Type Treatment Note Visit Note 02/16 after PN Visit Start Time 08:18 Visit Stop Time 08:58 Total Visit Minutes 40 Visit Number 17 Number of EXERCISE TEACHER Visits 1 Evaluation Information Evaluation Date 12/21/21 Precautions Precautions 01/13/22: L shld MRI: 1. Low-grade articular and bursal surface partial thickness tear involving distal supraspinatus extending to musculotendinous junction. Distal infraspinatus tendinosis. No full-thickness rotator cuff tendon rupture. Mild supraspinatus muscle atrophy. 2. Moderate acromioclavicular joint osteoarthritis. No fracture or dislocation. Small amount of joint fluid and subacromial subdeltoid bursal fluid. 3. Suggestion of subtle superior anterior labral tear at 1 to 2 o'clock position. PT-OP-B Current Condition Start: 12/21/21 17:43 Freq: Status: Active Protocol: Document 12/21/21 09:45 DCW (Rec: 12/21/21 17:59 DCW [id number]) Current Condition History of Current Condition Onset Date Seven month history Current Complaints Left shoulder pain History of Current Condition Pt is a 81 year old male presenting with a seven month history of left shoulder pain. 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 Pt was seen by his PCP in July after hoping it would get better, and since then received a referral in October, and waiting to get in for PT since then. Pt reports his pain seems to be worsening,and is limiting his ability to perform his normal activities. Unable to do anything overhead, hurts to even reach back and put his jacket on, or to lay on his left side. Treatment Goals Patient/Caregiver Goals I just want to be pain-free. PT-OP-C Subjective Start: 12/21/21 17:43 Freq: Status: Active Protocol: Document 02/23/22 08:18 SP (Rec: 02/23/22 09:03 SP [id number]) OP-PT Subjective Patient Comments Patient Comments Pt reports doing well with exercises, believes see progress. Can put on shirts/ jackets better and doesn't hurt as much as used to. Seems to be a little stronger. Can lace belt in loops behind his back easier than used to. Still bicep still bothersome. PT-OP-E Functional Tests Start: 12/21/21 17:43 Freq: Status: Active Protocol: Document 02/17/22 16:00 DCW (Rec: 02/17/22 16:18 DCW [id number]) Functional Tests Apley's Scratch Test Action 1- Left Posterior opposite shoulder Action 1- Right Posterior opposite shoulder Action 2- Left T3 Action 2- Right T3 Action 3- Left L2 Action 3- Right T11 PT-OP-F Manual Assessment Start: 12/21/21 17:43 Freq: Status: Active Protocol: Document 02/17/22 16:00 DCW (Rec: 02/17/22 16:18 DCW [id number]) Manual Assessments Soft Tissue Assessment Soft Tissue Mobility Assessment Tenderness to palpation 1/4: complaint of pain L LH biceps origin, infraspinatus PT-OP-K Range of Motion Start: 12/21/21 17:43 Freq: Status: Active Protocol: Document 02/17/22 16:00 DCW (Rec: 02/17/22 16:18 DCW [id number]) Shoulder Goniometric Range of Motion Shoulder Left Active Shoulder ROM WFL No Testing Position Sitting Flexion 143 Abduction 161 External Rotation at 0 degrees Abduction 63 Internal Rotation Behind Back (text) L2 PT-OP-L Special Tests Start: 12/21/21 17:43 Freq: Status: Active Protocol: Document 02/17/22 16:00 DCW (Rec: 02/17/22 16:18 DCW [id number]) Special Tests Shoulder Special Tests Yergason's Biceps Test Results Negative Speed's Biceps Test Results Negative Passive ER Rotator Cuff Test Results Negative Painful Arc Test Results Positive Left Lift-Off Rotator Cuff Test Results Positive Left Crisostomo Aki Impingement Test Results Positive Left Grind Labrum Test Results Negative Empty Can Test Results Negative Belly Press Test Results Left biceps pain Apprehension Test Test Results Negative Anterior Draw Test Results Negative AC Joint Compression Test Results Negative PT-OP-M Strength Start: 12/21/21 17:43 Freq: Status: Active Protocol: Document 02/17/22 16:00 DCW (Rec: 02/17/22 16:18 DCW [id number]) Shoulder Strength Shoulder Manual Muscle Testing Right Flexion 5 Normal Abduction (C5) 5 Normal External Rotation 5 Normal Internal Rotation 5 Normal Left Flexion 3+ Fair+ Abduction (C5) 3+ Fair+ External Rotation 4 Good Internal Rotation 4+ Good+ PT-OP-Q Treatments Start: 12/21/21 17:43 Freq: Status: Active Protocol: Document 02/23/22 08:18 SP (Rec: 02/23/22 09:03 SP [id number]) Cardio Equipment Upper Body Ergometer (UBE) Duration (Minutes) 5 RPM 50 Seat Position 14 Height 3.5, handles 4.5 Other f/b 1 min each, 50-55, cues for tall posture/CS neutral Therapeutic Exercises Supine Exercises ABD ER Supine Exercise Name 90/90: intiated in PT 02/09/22, not performed 02/15 Side left Resistance AROM with manual Equipment Used IR/ ER, ABD 90deg Comments continue in next tx Prone Exercises Ts, Is, Ys Prone Exercise Name intiated in PT, felt good and will do at home Side left Equipment Used Modified painfree range Ys Reps/Minutes 3SH, 2x5 reps each direction Comments min cues for scap retract/ depress neutral with each, painfree tiring effort Standing Exercises sleeper stretch Standing Exercise Name L- triale in PT Side left Reps/Minutes 10 sec hold x3 Comments good feedback stretch and less anterior L shld tension Other Exercises 1/2 kneel eccentric FF, ABD Other Exercise Name reviewed FF, ABD (1/2 kneel and seated in chair- best chair safety stabil) Side left Resistance Tb #2 Equipment Used foam under L knee- light contact rail stab Reps/Minutes 3-5SHx8 reps each directions ( angled kneel ABD AAROM) Comments cued slow eccentric, allow humeral inferior glide with LT fac- feels good Manual Therapy Treatment Soft Tissue Mobilization L Shoulder Body Location Pec, Biceps, coracobrachialis, prox tricep Mobilization Type Strumming Intensity/Depth Moderate Body Position Supine Comments Pt reports relief in L biceps. Joint Mobilizations L humeroulnar jt Direction lateral, inferior glide Grade II Body Position Supine Comments use strap sustained gentle distraction, MWM wrist flex/ ext GH Jt Joint L Direction AP, inferior glide Grade II Body Position Hooklying Reps/Duration 5' Comments MWM ABD/ ER, manual support, contract relax PT-OP-R Modalities Start: 12/21/21 17:43 Freq: Status: Active Protocol: Document 12/28/21 08:12 NBM (Rec: 12/28/21 09:04 NBM [id number]) Hot Pack/Cold Pack Treatment Cold Pack Location L shoulder Patient Position Hooklying Treatment Duration (minutes) 10 Patient Tolerance Good PT-OP-T Assessment and Plan Start: 12/21/21 17:43 Freq: Status: Active Protocol: Document 02/23/22 08:18 SP (Rec: 02/23/22 09:03 SP [id number]) Physical Therapy Assessment Goals Two Impairment Pt limited to 131? flexion and 80? abduction in left shoulder Genetics Teacher Goal (LTG) Pt to improve pain-free shoulder ROM to at least 135? in both flexion and abduction to improve ability to don/doff shirt and jacket without increased pain 01/18/22: progressin FF, 85 ABD. Pt demonstrates compensations into scaption, not measured. He states improving getting shirt/jacket on but still limiting. IR stretching helping with gaining this ROM. 02/09/21: Goal MET: 159 ABD, remained 142 FF. LTG Duration 02/20/21 goal met One Impairment Pt does not have an appropriate home exercise program Short Term Goal (STG) Pt to be independent and compliant with an appropriate HEP. 01/18/22: progressing: resisted shld ext and lateral walk walking forearms, AAROM wall walking stretch (IR, FF, scaption), open book. 02/09/21: intiated STG Duration 04/06/22 progressing Assessment Summary Assessment Pt reported good tiring L shld effort during prone Ts, Is, modified Ys. Improved scap stabilization and reports painfree with tolerant range, cued Physical Therapy Plan Frequency and Duration Frequency of Treatment 2x/Week Plan of Care Start Date 02/17/22 Plan of Care End Date 04/06/22 Next Visit Focus/Plan Next Note Type Treatment Note Next Visit Plan Next: recheck prone Ts, Is, Ys , progress ABD/ ER. Progress scap/shldr ex.
--- NOTE | 2022-03-02 08:58 | PT.OTN ---
Current Diagnoses Pain in left shoulder (03/02/22) Pain in arm, unspecified (03/02/22) Physical Therapy Treatment Note PT-OP-A Visit Information Start: 12/21/21 17:43 Freq: Status: Active Protocol: Document 03/02/22 08:18 SP (Rec: 03/02/22 09:00 SP [id number]) Out-Patient Physical Therapy Visit Information Visit Information Visit Type Treatment Note Visit Note 03/19 after PN Visit Start Time 08:18 Visit Stop Time 08:58 Total Visit Minutes 40 Visit Number 18 Number of PROPERTY MANAGEMENT ASSISTANT Visits 2 Evaluation Information Evaluation Date 12/21/21 Precautions Precautions 01/13/22: L shld MRI: 1. Low-grade articular and bursal surface partial thickness tear involving distal supraspinatus extending to musculotendinous junction. Distal infraspinatus tendinosis. No full-thickness rotator cuff tendon rupture. Mild supraspinatus muscle atrophy. 2. Moderate acromioclavicular joint osteoarthritis. No fracture or dislocation. Small amount of joint fluid and subacromial subdeltoid bursal fluid. 3. Suggestion of subtle superior anterior labral tear at 1 to 2 o'clock position. PT-OP-B Current Condition Start: 12/21/21 17:43 Freq: Status: Active Protocol: Document 12/21/21 09:45 DCW (Rec: 12/21/21 17:59 DCW [id number]) Current Condition History of Current Condition Onset Date Seven month history Current Complaints Left shoulder pain History of Current Condition Pt is a 81 year old male presenting with a seven month history of left shoulder pain. 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 Pt was seen by his PCP in July after hoping it would get better, and since then received a referral in October, and waiting to get in for PT since then. Pt reports his pain seems to be worsening,and is limiting his ability to perform his normal activities. Unable to do anything overhead, hurts to even reach back and put his jacket on, or to lay on his left side. Treatment Goals Patient/Caregiver Goals I just want to be pain-free. PT-OP-C Subjective Start: 12/21/21 17:43 Freq: Status: Active Protocol: Document 03/02/22 08:18 SP (Rec: 03/02/22 09:00 SP [id number]) OP-PT Subjective Patient Comments Patient Comments Pt reports getting better. Is able to put on jacket L shld last, clasp hands behind back, replace motor in table saw himself carefully. Patient Reported Progress Improving PT-OP-E Functional Tests Start: 12/21/21 17:43 Freq: Status: Active Protocol: Document 02/17/22 16:00 DCW (Rec: 02/17/22 16:18 DCW [id number]) Functional Tests Apley's Scratch Test Action 1- Left Posterior opposite shoulder Action 1- Right Posterior opposite shoulder Action 2- Left T3 Action 2- Right T3 Action 3- Left L2 Action 3- Right T11 PT-OP-F Manual Assessment Start: 12/21/21 17:43 Freq: Status: Active Protocol: Document 02/17/22 16:00 DCW (Rec: 02/17/22 16:18 DCW [id number]) Manual Assessments Soft Tissue Assessment Soft Tissue Mobility Assessment Tenderness to palpation 1/4: complaint of pain L LH biceps origin, infraspinatus PT-OP-K Range of Motion Start: 12/21/21 17:43 Freq: Status: Active Protocol: Document 02/17/22 16:00 DCW (Rec: 02/17/22 16:18 DCW [id number]) Shoulder Goniometric Range of Motion Shoulder Left Active Shoulder ROM WFL No Testing Position Sitting Flexion 143 Abduction 161 External Rotation at 0 degrees Abduction 63 Internal Rotation Behind Back (text) L2 PT-OP-L Special Tests Start: 12/21/21 17:43 Freq: Status: Active Protocol: Document 02/17/22 16:00 DCW (Rec: 02/17/22 16:18 DCW [id number]) Special Tests Shoulder Special Tests Yergason's Biceps Test Results Negative Speed's Biceps Test Results Negative Passive ER Rotator Cuff Test Results Negative Painful Arc Test Results Positive Left Lift-Off Rotator Cuff Test Results Positive Left Crisostomo Aki Impingement Test Results Positive Left Grind Labrum Test Results Negative Empty Can Test Results Negative Belly Press Test Results Left biceps pain Apprehension Test Test Results Negative Anterior Draw Test Results Negative AC Joint Compression Test Results Negative PT-OP-M Strength Start: 12/21/21 17:43 Freq: Status: Active Protocol: Document 02/17/22 16:00 DCW (Rec: 02/17/22 16:18 DCW [id number]) Shoulder Strength Shoulder Manual Muscle Testing Right Flexion 5 Normal Abduction (C5) 5 Normal External Rotation 5 Normal Internal Rotation 5 Normal Left Flexion 3+ Fair+ Abduction (C5) 3+ Fair+ External Rotation 4 Good Internal Rotation 4+ Good+ PT-OP-Q Treatments Start: 12/21/21 17:43 Freq: Status: Active Protocol: Document 03/02/22 08:18 SP (Rec: 03/02/22 09:05 SP [id number]) Therapeutic Exercises Supine Exercises pec stretch Supine Exercise Name end tx stretch Reps/Minutes 30 Comments good feedback stretch Prone Exercises Ts, Is, Ys Prone Exercise Name intiated in PT, felt good and will do at home Side bilateral Resistance AROM over 85 cm tball foot touching wall Equipment Used Modified painfree range Ys Reps/Minutes 3SH, 2x5 reps each direction Comments min cues for scap retract/ depress neutral with each, painfree tiring effort Sidelying Exercises ABCs Sidelying Exercise Name added to HEP (arm at 90deg abd ) Side left Resistance 2# DB Reps/Minutes a-z Comments cued small ROM, rythmic stab- good stability, little press out through rnge HABD Sidelying Exercise Name added to HEP Side left Resistance 2# DB Reps/Minutes x10 Comments Pt progressively improves ROM with reps, cued slow controlled segme motion ABD Sidelying Exercise Name added to HEP Side left Resistance 2# DB Reps/Minutes x10 Comments Pt progressively improves ROM with reps, cued slow controlled segme motion Open Book Side left Reps/Minutes 3 reps warm up AROM Comments good scapulothoracic glide painfree range Standing Exercises D2 flexion Standing Exercise Name trialed Side left Resistance AROM Equipment Used mirror use shld/ trunk alignment, therapist posterior support PRN Reps/Minutes x5 reps Comments improved ROM with reps sleeper stretch Standing Exercise Name reviewed instructed continue as HEP Side left Reps/Minutes 10 sec hold x3 repsd Comments good feedback stretch and less anterior L shld tension shld abd/ ER stretch Side left Reps/Minutes 5 reps therapist support trunk Comments good feedback stretch, ROM Other Exercises 1/2 kneel eccentric FF, ABD Other Exercise Name reviewed FF, ABD (1/2 kneel and seated in chair- best chair safety stabil) Side left Resistance Tb #2 Equipment Used foam under L knee- light contact rail stab Reps/Minutes 3-5SHx8 reps each directions ( angled kneel ABD AAROM) Comments cued slow eccentric, allow humeral inferior glide with LT fac- feels good PT-OP-R Modalities Start: 12/21/21 17:43 Freq: Status: Active Protocol: Document 12/28/21 08:12 NBM (Rec: 12/28/21 09:04 NBM [id number]) Hot Pack/Cold Pack Treatment Cold Pack Location L shoulder Patient Position Hooklying Treatment Duration (minutes) 10 Patient Tolerance Good PT-OP-T Assessment and Plan Start: 12/21/21 17:43 Freq: Status: Active Protocol: Document 03/02/22 08:18 SP (Rec: 03/02/22 09:00 SP [id number]) Physical Therapy Assessment Goals Two Impairment Pt limited to 131? flexion and 80? abduction in left shoulder Embedded Systems Software Developer Goal (LTG) Pt to improve pain-free shoulder ROM to at least 135? in both flexion and abduction to improve ability to don/doff shirt and jacket without increased pain 01/18/22: progressin FF, 85 ABD. Pt demonstrates compensations into scaption, not measured. He states improving getting shirt/jacket on but still limiting. IR stretching helping with gaining this ROM. 02/09/21: Goal MET: 159 ABD, remained 142 FF. LTG Duration 02/20/21 goal met One Impairment Pt does not have an appropriate home exercise program Short Term Goal (STG) Pt to be independent and compliant with an appropriate HEP. 01/18/22: progressing: resisted shld ext and lateral walk walking forearms, AAROM wall walking stretch (IR, FF, scaption), open book. 02/09/21: intiated eccentric OH 03/02/22: added sleeper stretch , prone Ts, Ys, Is table, side DB HABD, ABD, ABCs at 90deg abd. STG Duration 04/06/22 progressing 03/02/22 Assessment Summary Assessment Pt reports good sleeper stretch. Improved GH RTC/ scapular musculature muscle facilitation during resisted ROM into abd, HABD this tx, added to HEP (declined HO). Physical Therapy Plan Frequency and Duration Frequency of Treatment 2x/Week Plan of Care Start Date 02/17/22 Plan of Care End Date 04/06/22 Therapeutic Interventions Therapeutic Interventions Home Exercise Program,Joint Mobilizations,Manual Therapy, Neuromuscular Re-education, Patient/Caregiver Education, Self-Care/Home Management,Soft Tissue Mobilization,Taping, Therapeutic Activities, Therapeutic Exercises, Vestibular Rehabilitation Modalities Cold Pack/Ice Massage,Electric Stimulation,Hot Packs, Ultrasound Next Visit Focus/Plan Next Note Type Treatment Note Next Visit Plan Next: recheck prone table Ts, Is, Ys, side: wt HABD, ABD, ABCs GHjt segmental rhythm POC: Progress scap/shldr ex, AROM.
--- NOTE | 2022-03-05 15:15 | PT.OTN ---
Current Diagnoses Pain in left shoulder (03/05/22) Pain in arm, unspecified (03/05/22) Physical Therapy Treatment Note PT-OP-A Visit Information Start: 12/21/21 17:43 Freq: Status: Active Protocol: Document 03/05/22 14:33 SP (Rec: 03/05/22 15:18 SP [id number]) Out-Patient Physical Therapy Visit Information Visit Information Visit Type Treatment Note Visit Note 04/16 after PN Visit Start Time 14:33 Visit Stop Time 15:15 Total Visit Minutes 42 Visit Number 19 Number of RN INTERN Visits 3 Evaluation Information Evaluation Date 12/21/21 Precautions Precautions 01/13/22: L shld MRI: 1. Low-grade articular and bursal surface partial thickness tear involving distal supraspinatus extending to musculotendinous junction. Distal infraspinatus tendinosis. No full-thickness rotator cuff tendon rupture. Mild supraspinatus muscle atrophy. 2. Moderate acromioclavicular joint osteoarthritis. No fracture or dislocation. Small amount of joint fluid and subacromial subdeltoid bursal fluid. 3. Suggestion of subtle superior anterior labral tear at 1 to 2 o'clock position. PT-OP-B Current Condition Start: 12/21/21 17:43 Freq: Status: Active Protocol: Document 12/21/21 09:45 DCW (Rec: 12/21/21 17:59 DCW [id number]) Current Condition History of Current Condition Onset Date Seven month history Current Complaints Left shoulder pain History of Current Condition Pt is a 81 year old male presenting with a seven month history of left shoulder pain. 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 Pt was seen by his PCP in July after hoping it would get better, and since then received a referral in October, and waiting to get in for PT since then. Pt reports his pain seems to be worsening,and is limiting his ability to perform his normal activities. Unable to do anything overhead, hurts to even reach back and put his jacket on, or to lay on his left side. Treatment Goals Patient/Caregiver Goals I just want to be pain-free. PT-OP-C Subjective Start: 12/21/21 17:43 Freq: Status: Active Protocol: Document 03/05/22 14:33 SP (Rec: 03/05/22 15:18 SP [id number]) OP-PT Subjective Patient Comments Patient Comments Pt stated was ableto replace table saw motor, but didnt' work, need new part. Pt stated continues to see progress, stated hasn't tried LUE into jacket last yet, still feels bicep discomfort limiting ROM OH. PT-OP-E Functional Tests Start: 12/21/21 17:43 Freq: Status: Active Protocol: Document 02/17/22 16:00 DCW (Rec: 02/17/22 16:18 DCW [id number]) Functional Tests Apley's Scratch Test Action 1- Left Posterior opposite shoulder Action 1- Right Posterior opposite shoulder Action 2- Left T3 Action 2- Right T3 Action 3- Left L2 Action 3- Right T11 PT-OP-F Manual Assessment Start: 12/21/21 17:43 Freq: Status: Active Protocol: Document 02/17/22 16:00 DCW (Rec: 02/17/22 16:18 DCW [id number]) Manual Assessments Soft Tissue Assessment Soft Tissue Mobility Assessment Tenderness to palpation 1/: complaint of pain L LH biceps origin, infraspinatus PT-OP-K Range of Motion Start: 12/21/21 17:43 Freq: Status: Active Protocol: Document 02/17/22 16:00 DCW (Rec: 02/17/22 16:18 DCW [id number]) Shoulder Goniometric Range of Motion Shoulder Left Active Shoulder ROM WFL No Testing Position Sitting Flexion 143 Abduction 161 External Rotation at 0 degrees Abduction 63 Internal Rotation Behind Back (text) L2 PT-OP-L Special Tests Start: 12/21/21 17:43 Freq: Status: Active Protocol: Document 02/17/22 16:00 DCW (Rec: 02/17/22 16:18 DCW [id number]) Special Tests Shoulder Special Tests Yergason's Biceps Test Results Negative Speed's Biceps Test Results Negative Passive ER Rotator Cuff Test Results Negative Painful Arc Test Results Positive Left Lift-Off Rotator Cuff Test Results Positive Left Crisostomo Aki Impingement Test Results Positive Left Grind Labrum Test Results Negative Empty Can Test Results Negative Belly Press Test Results Left biceps pain Apprehension Test Test Results Negative Anterior Draw Test Results Negative AC Joint Compression Test Results Negative PT-OP-M Strength Start: 12/21/21 17:43 Freq: Status: Active Protocol: Document 02/17/22 16:00 DCW (Rec: 02/17/22 16:18 DCW [id number]) Shoulder Strength Shoulder Manual Muscle Testing Right Flexion 5 Normal Abduction (C5) 5 Normal External Rotation 5 Normal Internal Rotation 5 Normal Left Flexion 3+ Fair+ Abduction (C5) 3+ Fair+ External Rotation 4 Good Internal Rotation 4+ Good+ PT-OP-Q Treatments Start: 12/21/21 17:43 Freq: Status: Active Protocol: Document 03/05/22 14:33 SP (Rec: 03/05/22 15:18 SP [id number]) Therapeutic Exercises Supine Exercises foam roller Supine Exercise Name 1. pec stretch 2. Ys- improved with cues/reps Side bilateral Resistance AROM stretch, TB #1 Reps/Minutes 30s stretch, many reps Ys Comments cued slow range into Ys scaption range and allow humerus & scap open into Y Prone Exercises Ts, Is, Ys Prone Exercise Name intiated in PT, felt good and will do at home Side bilateral Resistance AROM Ts (contact cues tricep elbow straight), Is at side 1# DB Equipment Used No Ys 03/05 Reps/Minutes 2x5 reps each direction Comments min cues for scap retract/ depress neutral with each, painfree tiring effort Sidelying Exercises ABCs Sidelying Exercise Name reviewed HEP (arm at 90deg abd ) Side left Resistance 2# DB Reps/Minutes a-z Comments cued small ROM, rythmic stab- good stability, little press out through rnge HABD Sidelying Exercise Name reviewed HEP Side left Resistance 2# DB Reps/Minutes x10 Comments Pt progressively improves ROM with reps, cued slow controlled segme motion ABD Sidelying Exercise Name reviewed HEP Side left Resistance 2# DB Reps/Minutes x10 Comments manual little inferior GH glide w/ cues slow mid range Standing Exercises incline table push up Standing Exercise Name initiated in PT Resistance AROM Equipment Used *good effort, painfree L shld Reps/Minutes x5 reps Comments cued chest lift, elbows close to side, lift lower SP and tricep tricep ext Standing Exercise Name added to HEP- good form Side left Resistance Tb #2 Reps/Minutes x10 Comments cued tall posture, elbow at side, press down, straight elbow D2 flexion Standing Exercise Name trialed in PT- better supine foam roller- Hold for now 03/05 Side left Resistance AROM, Tb #1 Equipment Used mirror use shld/ trunk alignment, therapist posterior support PRN Reps/Minutes x5 reps Comments limited abd/extension end range Ys. Manual Therapy Treatment Soft Tissue Mobilization L Shoulder Body Location Pec, Biceps, coracobrachialis, prox tricep Mobilization Type Strumming Intensity/Depth Moderate Body Position Supine Comments Pt reports relief in L biceps. Joint Mobilizations Scap Joint L Direction Protraction, Retraction, inferior, superior Body Position Sidelying Reps/Duration 5' GH Jt Joint L Direction AP, inferior glide Grade II Body Position Hooklying Reps/Duration 5' Comments MWM ABD/ ER, manual support, contract relax PT-OP-R Modalities Start: 12/21/21 17:43 Freq: Status: Active Protocol: Document 12/28/21 08:12 NBM (Rec: 12/28/21 09:04 NBM [id number]) Hot Pack/Cold Pack Treatment Cold Pack Location L shoulder Patient Position Hooklying Treatment Duration (minutes) 10 Patient Tolerance Good PT-OP-T Assessment and Plan Start: 12/21/21 17:43 Freq: Status: Active Protocol: Document 03/05/22 14:33 SP (Rec: 03/05/22 15:18 SP [id number]) Physical Therapy Assessment Goals One Impairment Pt does not have an appropriate home exercise program Short Term Goal (STG) Pt to be independent and compliant with an appropriate HEP. 01/18/22: progressing: resisted shld ext and lateral walk walking forearms, AAROM wall walking stretch (IR, FF, scaption), open book. 02/09/21: intiated eccentric OH 03/02/22: added sleeper stretch , prone Ts, Ys, Is table, side DB HABD, ABD, ABCs at 90deg abd. STG Duration 04/06/22 progressing 03/02/22 Assessment Summary Assessment Pt limited in scapular retraction/depression. He reports good feedback response to resisted side and prone ther ex. Improved self supine over foam roller D2 flexion ROM by end tx, ableto get inferior glide to L GH jt. Added tricep ext strengthening : TB and inclined pushup for less tension on bicep, good feedback response. Physical Therapy Plan Frequency and Duration Frequency of Treatment 2x/Week Plan of Care Start Date 02/17/22 Plan of Care End Date 04/06/22 Therapeutic Interventions Therapeutic Interventions Home Exercise Program,Joint Mobilizations,Manual Therapy, Neuromuscular Re-education, Patient/Caregiver Education, Self-Care/Home Management,Soft Tissue Mobilization,Taping, Therapeutic Activities, Therapeutic Exercises, Vestibular Rehabilitation Modalities Cold Pack/Ice Massage,Electric Stimulation,Hot Packs, Ultrasound Other Referrals/Consults Referrals/Consults Recommended Pt would likely benefit from MRI/CT scan to rule in/rule out r/c tear due to worsening symptoms over more than six months. Next Visit Focus/Plan Next Note Type Treatment Note Next Visit Plan Next: recheck tricep ext TB, inclined pushup, side: wt HABD , ABD, ABCs GHjt segmental rhythm POC: Progress scap/shldr ex, AROM into end range Ys.
--- NOTE | 2022-03-08 09:00 | PT.OTN ---
Current Diagnoses Pain in left shoulder (03/08/22) Pain in arm, unspecified (03/08/22) Physical Therapy Treatment Note PT-OP-A Visit Information Start: 12/21/21 17:43 Freq: Status: Active Protocol: Document 03/08/22 08:18 SP (Rec: 03/08/22 09:04 SP [id number]) Out-Patient Physical Therapy Visit Information Visit Information Visit Type Treatment Note Visit Note 05/17 after PN Visit Start Time 08:18 Visit Stop Time 09:00 Total Visit Minutes 42 Visit Number 20 Number of [employer] SALES SPECIALIST Visits 4 Evaluation Information Evaluation Date 12/21/21 Precautions Precautions 01/13/22: L shld MRI: 1. Low-grade articular and bursal surface partial thickness tear involving distal supraspinatus extending to musculotendinous junction. Distal infraspinatus tendinosis. No full-thickness rotator cuff tendon rupture. Mild supraspinatus muscle atrophy. 2. Moderate acromioclavicular joint osteoarthritis. No fracture or dislocation. Small amount of joint fluid and subacromial subdeltoid bursal fluid. 3. Suggestion of subtle superior anterior labral tear at 1 to 2 o'clock position. PT-OP-B Current Condition Start: 12/21/21 17:43 Freq: Status: Active Protocol: Document 12/21/21 09:45 DCW (Rec: 12/21/21 17:59 DCW [id number]) Current Condition History of Current Condition Onset Date Seven month history Current Complaints Left shoulder pain History of Current Condition Pt is a 81 year old male presenting with a seven month history of left shoulder pain. 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 Pt was seen by his PCP in July after hoping it would get better, and since then received a referral in October, and waiting to get in for PT since then. Pt reports his pain seems to be worsening,and is limiting his ability to perform his normal activities. Unable to do anything overhead, hurts to even reach back and put his jacket on, or to lay on his left side. Treatment Goals Patient/Caregiver Goals I just want to be pain-free. PT-OP-C Subjective Start: 12/21/21 17:43 Freq: Status: Active Protocol: Document 03/08/22 08:18 SP (Rec: 03/08/22 09:04 SP [id number]) OP-PT Subjective Patient Comments Patient Comments Pt stated felt good after last week with tricep TB and tricep push up painfree and did over the weekend off his vanity. He did some yard work cutting up trees using hand trimmers and larger PT-OP-E Functional Tests Start: 12/21/21 17:43 Freq: Status: Active Protocol: Document 02/17/22 16:00 DCW (Rec: 02/17/22 16:18 DCW [id number]) Functional Tests Apley's Scratch Test Action 1- Left Posterior opposite shoulder Action 1- Right Posterior opposite shoulder Action 2- Left T3 Action 2- Right T3 Action 3- Left L2 Action 3- Right T11 PT-OP-F Manual Assessment Start: 12/21/21 17:43 Freq: Status: Active Protocol: Document 02/17/22 16:00 DCW (Rec: 02/17/22 16:18 DCW [id number]) Manual Assessments Soft Tissue Assessment Soft Tissue Mobility Assessment Tenderness to palpation 1/4: complaint of pain L LH biceps origin, infraspinatus PT-OP-K Range of Motion Start: 12/21/21 17:43 Freq: Status: Active Protocol: Document 02/17/22 16:00 DCW (Rec: 02/17/22 16:18 DCW [id number]) Shoulder Goniometric Range of Motion Shoulder Left Active Shoulder ROM WFL No Testing Position Sitting Flexion 143 Abduction 161 External Rotation at 0 degrees Abduction 63 Internal Rotation Behind Back (text) L2 PT-OP-L Special Tests Start: 12/21/21 17:43 Freq: Status: Active Protocol: Document 02/17/22 16:00 DCW (Rec: 02/17/22 16:18 DCW [id number]) Special Tests Shoulder Special Tests Yergason's Biceps Test Results Negative Speed's Biceps Test Results Negative Passive ER Rotator Cuff Test Results Negative Painful Arc Test Results Positive Left Lift-Off Rotator Cuff Test Results Positive Left Crisostomo Aki Impingement Test Results Positive Left Grind Labrum Test Results Negative Empty Can Test Results Negative Belly Press Test Results Left biceps pain Apprehension Test Test Results Negative Anterior Draw Test Results Negative AC Joint Compression Test Results Negative PT-OP-M Strength Start: 12/21/21 17:43 Freq: Status: Active Protocol: Document 02/17/22 16:00 DCW (Rec: 02/17/22 16:18 DCW [id number]) Shoulder Strength Shoulder Manual Muscle Testing Right Flexion 5 Normal Abduction (C5) 5 Normal External Rotation 5 Normal Internal Rotation 5 Normal Left Flexion 3+ Fair+ Abduction (C5) 3+ Fair+ External Rotation 4 Good Internal Rotation 4+ Good+ PT-OP-Q Treatments Start: 12/21/21 17:43 Freq: Status: Active Protocol: Document 03/08/22 08:18 SP (Rec: 03/08/22 09:04 SP [id number]) Therapeutic Exercises Sidelying Exercises ER Sidelying Exercise Name initiated in PT Side left Resistance 2# DB Equipment Used towel under arm Reps/Minutes x10 reps Comments cued slow tolerant ROM, scap stab rectrac/depre HABD Sidelying Exercise Name reviewed HEP Side left Resistance AROM>2# DB Reps/Minutes x10 Comments Pt progressively improves ROM with reps, cued slow controlled segme motion ABD Sidelying Exercise Name reviewed HEP Side left Resistance 2# DB Reps/Minutes x10 Comments manual little inferior GH glide w/ cues slow mid range Open Book Side left Reps/Minutes 3 reps warm up AROM Comments good scapulothoracic glide painfree range Sitting Exercises pulleys Sitting Exercise Name warm up: seated FF, ABD, stand : IR Side left Reps/Minutes 10SH x10 each Comments good feedback stretch Standing Exercises Ys off wall Standing Exercise Name trialed in PT- recheck if ok to continue as HEP with good form/alignment Side bilateral Resistance AROM Reps/Minutes 2 SH x5 reps Comments cued scap depression, scaption ROM, no UT incline table push up Standing Exercise Name initiated in PT Resistance AROM Equipment Used *good effort, painfree L shld Reps/Minutes x5 reps Comments cued chest lift, elbows close to side, lift lower SP and tricep, CS chin tk sleeper stretch Standing Exercise Name reviewed instructed continue as HEP Side left Reps/Minutes 10 sec hold x3 repsd Comments good feedback stretch and less anterior L shld tension wall walk FF doorframe Standing Exercise Name reviewed HEP- good response Side left Reps/Minutes 5 reps hold 20 s Comments no UT recruitment with breath, scap depression for improved pain-free range Manual Therapy Treatment Soft Tissue Mobilization L Shoulder Body Location Pec, Biceps, coracobrachialis, prox tricep Mobilization Type Strumming Intensity/Depth Moderate Body Position Supine Comments Pt reports relief in L biceps, MWM elbow flex/ext. Joint Mobilizations Scap Joint L Direction Protraction, Retraction, inferior, superior Body Position Sidelying GH Jt Joint L Direction AP, inferior glide Grade II Body Position Hooklying Reps/Duration 5' Comments MWM ABD/ ER, manual support, contract relax PT-OP-R Modalities Start: 12/21/21 17:43 Freq: Status: Active Protocol: Document 12/28/21 08:12 NBM (Rec: 12/28/21 09:04 NBM [id number]) Hot Pack/Cold Pack Treatment Cold Pack Location L shoulder Patient Position Hooklying Treatment Duration (minutes) 10 Patient Tolerance Good PT-OP-T Assessment and Plan Start: 12/21/21 17:43 Freq: Status: Active Protocol: Document 03/08/22 08:18 SP (Rec: 03/08/22 09:04 SP [id number]) Physical Therapy Assessment Goals One Impairment Pt does not have an appropriate home exercise program Short Term Goal (STG) Pt to be independent and compliant with an appropriate HEP. 01/18/22: progressing: resisted shld ext and lateral walk walking forearms, AAROM wall walking stretch (IR, FF, scaption), open book. 02/09/21: intiated eccentric OH 03/02/22: added sleeper stretch , prone Ts, Ys, Is table, side DB HABD, ABD, ABCs at 90deg abd. STG Duration 04/06/22 progressing 03/02/22 Assessment Summary Assessment Pt improvement in inferior L humeral glide during ABD, scaption OH post stretching and manual. Pt continues to report bicep tension limiting OH but feels better post PT and ableto move more into OH. Physical Therapy Plan Frequency and Duration Frequency of Treatment 2x/Week Plan of Care Start Date 02/17/22 Plan of Care End Date 04/06/22 Therapeutic Interventions Therapeutic Interventions Home Exercise Program,Joint Mobilizations,Manual Therapy, Neuromuscular Re-education, Patient/Caregiver Education, Self-Care/Home Management,Soft Tissue Mobilization,Taping, Therapeutic Activities, Therapeutic Exercises, Vestibular Rehabilitation Modalities Cold Pack/Ice Massage,Electric Stimulation,Hot Packs, Ultrasound Next Visit Focus/Plan Next Note Type Treatment Note Next Visit Plan Next: recheck tricep ext TB, inclined pushup, side: wt HABD , ABD, ABCs GHjt segmental rhythm, Ys off wall added last tx, recheck want HOs? POC: Progress scap/shldr ex, AROM into end range Ys.
--- NOTE | 2022-03-11 10:34 | PT.OTN ---
Current Diagnoses Pain in left shoulder (03/11/22) Pain in arm, unspecified (03/11/22) Physical Therapy Treatment Note PT-OP-A Visit Information Start: 12/21/21 17:43 Freq: Status: Active Protocol: Document 03/11/22 09:45 DCW (Rec: 03/11/22 10:34 DCW [id number]) Out-Patient Physical Therapy Visit Information Visit Information Visit Type Treatment Note Visit Note 06/16 after PN Visit Start Time 09:45 Visit Stop Time 10:30 Total Visit Minutes 45 Visit Number 21 Number of [employer]BLER Visits 0 Evaluation Information Evaluation Date 12/21/21 Precautions Precautions 01/13/22: L shld MRI: 1. Low-grade articular and bursal surface partial thickness tear involving distal supraspinatus extending to musculotendinous junction. Distal infraspinatus tendinosis. No full-thickness rotator cuff tendon rupture. Mild supraspinatus muscle atrophy. 2. Moderate acromioclavicular joint osteoarthritis. No fracture or dislocation. Small amount of joint fluid and subacromial subdeltoid bursal fluid. 3. Suggestion of subtle superior anterior labral tear at 1 to 2 o'clock position. PT-OP-B Current Condition Start: 12/21/21 17:43 Freq: Status: Active Protocol: Document 12/21/21 09:45 DCW (Rec: 12/21/21 17:59 DCW [id number]) Current Condition History of Current Condition Onset Date Seven month history Current Complaints Left shoulder pain History of Current Condition Pt is a 81 year old male presenting with a seven month history of left shoulder pain. 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 Pt was seen by his PCP in July after hoping it would get better, and since then received a referral in October, and waiting to get in for PT since then. Pt reports his pain seems to be worsening,and is limiting his ability to perform his normal activities. Unable to do anything overhead, hurts to even reach back and put his jacket on, or to lay on his left side. Treatment Goals Patient/Caregiver Goals I just want to be pain-free. PT-OP-C Subjective Start: 12/21/21 17:43 Freq: Status: Active Protocol: Document 03/11/22 09:45 DCW (Rec: 03/11/22 10:34 DCW [id number]) OP-PT Subjective Patient Comments Patient Comments It's getting better all the time, notes the thing that seems to be bothering him the most still is his biceps, but it is slowly getting better. PT-OP-E Functional Tests Start: 12/21/21 17:43 Freq: Status: Active Protocol: Document 02/17/22 16:00 DCW (Rec: 02/17/22 16:18 DCW [id number]) Functional Tests Apley's Scratch Test Action 1- Left Posterior opposite shoulder Action 1- Right Posterior opposite shoulder Action 2- Left T3 Action 2- Right T3 Action 3- Left L2 Action 3- Right T11 PT-OP-F Manual Assessment Start: 12/21/21 17:43 Freq: Status: Active Protocol: Document 02/17/22 16:00 DCW (Rec: 02/17/22 16:18 DCW [id number]) Manual Assessments Soft Tissue Assessment Soft Tissue Mobility Assessment Tenderness to palpation 1/4: complaint of pain L LH biceps origin, infraspinatus PT-OP-K Range of Motion Start: 12/21/21 17:43 Freq: Status: Active Protocol: Document 02/17/22 16:00 DCW (Rec: 02/17/22 16:18 DCW [id number]) Shoulder Goniometric Range of Motion Shoulder Left Active Shoulder ROM WFL No Testing Position Sitting Flexion 143 Abduction 161 External Rotation at 0 degrees Abduction 63 Internal Rotation Behind Back (text) L2 PT-OP-L Special Tests Start: 12/21/21 17:43 Freq: Status: Active Protocol: Document 02/17/22 16:00 DCW (Rec: 02/17/22 16:18 DCW [id number]) Special Tests Shoulder Special Tests Yergason's Biceps Test Results Negative Speed's Biceps Test Results Negative Passive ER Rotator Cuff Test Results Negative Painful Arc Test Results Positive Left Lift-Off Rotator Cuff Test Results Positive Left Crisostomo Aki Impingement Test Results Positive Left Grind Labrum Test Results Negative Empty Can Test Results Negative Belly Press Test Results Left biceps pain Apprehension Test Test Results Negative Anterior Draw Test Results Negative AC Joint Compression Test Results Negative PT-OP-M Strength Start: 12/21/21 17:43 Freq: Status: Active Protocol: Document 02/17/22 16:00 DCW (Rec: 02/17/22 16:18 DCW [id number]) Shoulder Strength Shoulder Manual Muscle Testing Right Flexion 5 Normal Abduction (C5) 5 Normal External Rotation 5 Normal Internal Rotation 5 Normal Left Flexion 3+ Fair+ Abduction (C5) 3+ Fair+ External Rotation 4 Good Internal Rotation 4+ Good+ PT-OP-Q Treatments Start: 12/21/21 17:43 Freq: Status: Active Protocol: Document 03/11/22 09:45 DCW (Rec: 03/11/22 10:34 DCW [id number]) Therapeutic Exercises Supine Exercises foam roller Supine Exercise Name 1. pec stretch 2. snow angels Side bilateral Standing Exercises IR Stretch Standing Exercise Name Pulleys - IR Side left Reps/Minutes 20s x3 Comments good feedback stretch Manual Therapy Treatment Soft Tissue Mobilization L Shoulder Body Location Pec, Biceps, coracobrachialis, prox tricep Mobilization Type Strumming Intensity/Depth Moderate Body Position Supine Comments Pt reports relief in L biceps, MWM elbow flex/ext. Joint Mobilizations Scap Joint L Direction Protraction, Retraction, inferior, superior Body Position Sidelying GH Jt Joint L Direction AP, inferior glide Grade II Body Position Hooklying Reps/Duration 5' Comments MWM ABD/ ER, manual support, contract relax PT-OP-R Modalities Start: 12/21/21 17:43 Freq: Status: Active Protocol: Document 12/28/21 08:12 NBM (Rec: 12/28/21 09:04 NBM [id number]) Hot Pack/Cold Pack Treatment Cold Pack Location L shoulder Patient Position Hooklying Treatment Duration (minutes) 10 Patient Tolerance Good PT-OP-T Assessment and Plan Start: 12/21/21 17:43 Freq: Status: Active Protocol: Document 03/11/22 09:45 DCW (Rec: 03/11/22 10:34 DCW [id number]) Physical Therapy Assessment Goals One Impairment Pt does not have an appropriate home exercise program Short Term Goal (STG) Pt to be independent and compliant with an appropriate HEP. 01/18/22: progressing: resisted shld ext and lateral walk walking forearms, AAROM wall walking stretch (IR, FF, scaption), open book. 02/09/21: intiated eccentric OH 03/02/22: added sleeper stretch , prone Ts, Ys, Is table, side DB HABD, ABD, ABCs at 90deg abd. STG Duration 04/06/22 progressing 03/02/22 Assessment Summary Assessment Pt significantly increasing pain-free IR behind his back, but is still experiencing ongoing biceps pain with certain motions. Unable to replicate this pain with anything in PT other than passively moving pt into GH IR . Physical Therapy Plan Frequency and Duration Frequency of Treatment 2x/Week Plan of Care Start Date 02/17/22 Plan of Care End Date 04/06/22 Therapeutic Interventions Therapeutic Interventions Home Exercise Program,Joint Mobilizations,Manual Therapy, Neuromuscular Re-education, Patient/Caregiver Education, Self-Care/Home Management,Soft Tissue Mobilization,Taping, Therapeutic Activities, Therapeutic Exercises, Vestibular Rehabilitation Modalities Cold Pack/Ice Massage,Electric Stimulation,Hot Packs, Ultrasound Next Visit Focus/Plan Next Note Type Treatment Note Next Visit Plan Next: recheck tricep ext TB, inclined pushup, side: wt HABD , ABD, ABCs GHjt segmental rhythm, Ys off wall added last tx, recheck want HOs? POC: Progress scap/shldr ex, AROM into end range Ys.
--- NOTE | 2022-03-19 13:30 | PT.OTN ---
Current Diagnoses Pain in left shoulder (03/19/22) Pain in arm, unspecified (03/19/22) Physical Therapy Treatment Note PT-OP-A Visit Information Start: 12/21/21 17:43 Freq: Status: Active Protocol: Document 03/19/22 10:53 NBM (Rec: 03/19/22 11:36 [facility] [id number]) Out-Patient Physical Therapy Visit Information Visit Information Visit Type Treatment Note Visit Note 08/16 after PN Visit Start Time 10:52 Visit Stop Time 11:34 Total Visit Minutes 42 Visit Number 23 Number of DRAUGHTSMAN Visits 2 PT-OP-B Current Condition Start: 12/21/21 17:43 Freq: Status: Active Protocol: Document 12/21/21 09:45 DCW (Rec: 12/21/21 17:59 DCW [id number]) Current Condition History of Current Condition Onset Date Seven month history Current Complaints Left shoulder pain History of Current Condition Pt is a 81 year old male presenting with a seven month history of left shoulder pain. 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 Pt was seen by his PCP in July after hoping it would get better, and since then received a referral in October, and waiting to get in for PT since then. Pt reports his pain seems to be worsening,and is limiting his ability to perform his normal activities. Unable to do anything overhead, hurts to even reach back and put his jacket on, or to lay on his left side. Treatment Goals Patient/Caregiver Goals I just want to be pain-free. PT-OP-C Subjective Start: 12/21/21 17:43 Freq: Status: Active Protocol: Document 03/19/22 10:53 NBM (Rec: 03/19/22 11:36 [facility] [id number]) OP-PT Subjective Patient Comments Patient Comments Pt reports getting better overall. PT-OP-E Functional Tests Start: 12/21/21 17:43 Freq: Status: Active Protocol: Document 02/17/22 16:00 DCW (Rec: 02/17/22 16:18 DCW [id number]) Functional Tests Apley's Scratch Test Action 1- Left Posterior opposite shoulder Action 1- Right Posterior opposite shoulder Action 2- Left T3 Action 2- Right T3 Action 3- Left L2 Action 3- Right T11 PT-OP-F Manual Assessment Start: 12/21/21 17:43 Freq: Status: Active Protocol: Document 02/17/22 16:00 DCW (Rec: 02/17/22 16:18 DCW [id number]) Manual Assessments Soft Tissue Assessment Soft Tissue Mobility Assessment Tenderness to palpation 1/4: complaint of pain L LH biceps origin, infraspinatus PT-OP-K Range of Motion Start: 12/21/21 17:43 Freq: Status: Active Protocol: Document 02/17/22 16:00 DCW (Rec: 02/17/22 16:18 DCW [id number]) Shoulder Goniometric Range of Motion Shoulder Left Active Shoulder ROM WFL No Testing Position Sitting Flexion 143 Abduction 161 External Rotation at 0 degrees Abduction 63 Internal Rotation Behind Back (text) L2 PT-OP-L Special Tests Start: 12/21/21 17:43 Freq: Status: Active Protocol: Document 02/17/22 16:00 DCW (Rec: 02/17/22 16:18 DCW [id number]) Special Tests Shoulder Special Tests Yergason's Biceps Test Results Negative Speed's Biceps Test Results Negative Passive ER Rotator Cuff Test Results Negative Painful Arc Test Results Positive Left Lift-Off Rotator Cuff Test Results Positive Left Crisostomo Aki Impingement Test Results Positive Left Grind Labrum Test Results Negative Empty Can Test Results Negative Belly Press Test Results Left biceps pain Apprehension Test Test Results Negative Anterior Draw Test Results Negative AC Joint Compression Test Results Negative PT-OP-M Strength Start: 12/21/21 17:43 Freq: Status: Active Protocol: Document 02/17/22 16:00 DCW (Rec: 02/17/22 16:18 DCW [id number]) Shoulder Strength Shoulder Manual Muscle Testing Right Flexion 5 Normal Abduction (C5) 5 Normal External Rotation 5 Normal Internal Rotation 5 Normal Left Flexion 3+ Fair+ Abduction (C5) 3+ Fair+ External Rotation 4 Good Internal Rotation 4+ Good+ PT-OP-Q Treatments Start: 12/21/21 17:43 Freq: Status: Active Protocol: Document 03/19/22 10:53 NBM (Rec: 03/19/22 11:36 NBM [id number]) Gym Equipment Cable Column (Body Solid) lat pull down, rows Details cued tall posture scap retract /depre con/ ecc Resistance 20#PD, 30# Rows Reps/Time x20, hold 1-2sec, vc for breathing on effort Therapeutic Exercises Prone Exercises Ts, Is, Ys Side bilateral Resistance AROM Ts (contact cues tricep elbow straight), Is at side 1# DB Reps/Minutes x10 reps each direction Comments min cues for scap retract/ depress neutral with each, painfree tiring effort Standing Exercises Chest Press Side bilateral Resistance Lvl 2 Reps/Minutes x10 Comments initial cues for form. Rows Standing Exercise Name Rows Side bilateral Resistance Lv #3 Reps/Minutes x15 Comments cued tall posture, pacing, painfree, elbow not past body Extension Standing Exercise Name Shoulder Extension Side bilateral Resistance 4 Reps/Minutes 15 Comments cued tall elbow straight, scap retraction/eccentric, painfree good effort ER/IR Standing Exercise Name Shoulder ER/IR Side left Resistance Lv 4 Reps/Minutes x15 each direction Comments cues for scap/ GH Jt back/ depressed - good form/effort Manual Therapy Treatment Soft Tissue Mobilization L Shoulder Body Location Pec, Biceps, coracobrachialis, prox tricep Mobilization Type Strumming Intensity/Depth Moderate Body Position Supine Comments Pt reports relief in L biceps Joint Mobilizations Scap Joint L Direction Protraction, Retraction, inferior, superior Body Position Sidelying PT-OP-R Modalities Start: 12/21/21 17:43 Freq: Status: Active Protocol: Document 03/19/22 10:53 NB (Rec: 03/19/22 11:36 [facility] [id number]) Hot Pack/Cold Pack Treatment Cold Pack Location L shoulder Patient Position Hooklying Treatment Duration (minutes) 10 Patient Tolerance Good PT-OP-T Assessment and Plan Start: 12/21/21 17:43 Freq: Status: Active Protocol: Document 03/19/22 10:53 NBM (Rec: 03/19/22 11:36 [facility] [id number]) Physical Therapy Assessment Impairments Impairments Functional Activities, Functional Mobility,Pain,ROM, Soft Tissue Mobility,Strength, Tone Goals One Impairment Pt does not have an appropriate home exercise program Short Term Goal (STG) Pt to be independent and compliant with an appropriate HEP. 01/18/22: progressing: resisted shld ext and lateral walk walking forearms, AAROM wall walking stretch (IR, FF, scaption), open book. 1/3/22: intiated eccentric OH 03/02/22: added sleeper stretch , prone Ts, Ys, Is table, side DB HABD, ABD, ABCs at 90deg abd. STG Duration 04/06/22 progressing 03/02/22 Assessment Summary Assessment Pt advised to initiate ex's from between shoulder blades; if pain in biceps reset shoulder blades or stop and rest due to UT overactivation. Tolerates I/Y/T on physioball , advised Y's Ts at home wihtout weight until able to perform 10 reps without biceps pain. Physical Therapy Plan Frequency and Duration Frequency of Treatment 2x/Week Plan of Care Start Date 02/17/22 Plan of Care End Date 04/06/22 Therapeutic Interventions Therapeutic Interventions Home Exercise Program,Joint Mobilizations,Manual Therapy, Neuromuscular Re-education, Patient/Caregiver Education, Self-Care/Home Management,Soft Tissue Mobilization,Taping, Therapeutic Activities, Therapeutic Exercises, Vestibular Rehabilitation Modalities Cold Pack/Ice Massage,Electric Stimulation,Hot Packs, Ultrasound Other Referrals/Consults Referrals/Consults Recommended Pt would likely benefit from MRI/CT scan to rule in/rule out r/c tear due to worsening symptoms over more than six months. Next Visit Focus/Plan Next Note Type Treatment Note Next Visit Plan Emphasis on ABD/ER L. POC: Progress scap/shldr ex, AROM into end range Ys.
--- NOTE | 2022-03-22 09:00 | PT.OTN ---
Current Diagnoses Pain in left shoulder (03/22/22) Pain in arm, unspecified (03/22/22) Physical Therapy Treatment Note PT-OP-A Visit Information Start: 12/21/21 17:43 Freq: Status: Active Protocol: Document 03/22/22 08:18 SP (Rec: 03/22/22 09:04 SP [id number]) Out-Patient Physical Therapy Visit Information Visit Information Visit Type Treatment Note Visit Note 09/16 after PN Visit Start Time 08:18 Visit Stop Time 09:00 Total Visit Minutes 42 Visit Number 24 Number of FLOOR COVERING LAYER Visits 3 Evaluation Information Evaluation Date 12/21/21 PT-OP-B Current Condition Start: 12/21/21 17:43 Freq: Status: Active Protocol: Document 12/21/21 09:45 DCW (Rec: 12/21/21 17:59 DCW [id number]) Current Condition History of Current Condition Onset Date Seven month history Current Complaints Left shoulder pain History of Current Condition Pt is a 81 year old male presenting with a seven month history of left shoulder pain. 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 Pt was seen by his PCP in July after hoping it would get better, and since then received a referral in October, and waiting to get in for PT since then. Pt reports his pain seems to be worsening,and is limiting his ability to perform his normal activities. Unable to do anything overhead, hurts to even reach back and put his jacket on, or to lay on his left side. Treatment Goals Patient/Caregiver Goals I just want to be pain-free. PT-OP-C Subjective Start: 12/21/21 17:43 Freq: Status: Active Protocol: Document 03/22/22 08:18 SP (Rec: 03/22/22 09:04 SP [id number]) OP-PT Subjective Patient Comments Patient Comments Pt reports L amisha ziegler thinks slept wrong side sleeping. PT-OP-E Functional Tests Start: 12/21/21 17:43 Freq: Status: Active Protocol: Document 02/17/22 16:00 DCW (Rec: 02/17/22 16:18 DCW [id number]) Functional Tests Apley's Scratch Test Action 1- Left Posterior opposite shoulder Action 1- Right Posterior opposite shoulder Action 2- Left T3 Action 2- Right T3 Action 3- Left L2 Action 3- Right T11 PT-OP-F Manual Assessment Start: 12/21/21 17:43 Freq: Status: Active Protocol: Document 02/17/22 16:00 DCW (Rec: 02/17/22 16:18 DCW [id number]) Manual Assessments Soft Tissue Assessment Soft Tissue Mobility Assessment Tenderness to palpation /4: complaint of pain L LH biceps origin, infraspinatus PT-OP-K Range of Motion Start: 12/21/21 17:43 Freq: Status: Active Protocol: Document 03/22/22 08:18 SP (Rec: 03/22/22 09:04 SP [id number]) Shoulder Goniometric Range of Motion Shoulder Left Active Shoulder ROM WFL No Testing Position Sitting Flexion 143 Extension 55 Abduction 163 External Rotation at 0 degrees Abduction 63 Internal Rotation Behind Back (text) T11 Comments L AROM: ABD: improve 2 deg FF: same 143 deg ER: Same 63 deg IR standing behind back: improved from L2. PT-OP-L Special Tests Start: 12/21/21 17:43 Freq: Status: Active Protocol: Document 02/17/22 16:00 DCW (Rec: 02/17/22 16:18 DCW [id number]) Special Tests Shoulder Special Tests Yergason's Biceps Test Results Negative Speed's Biceps Test Results Negative Passive ER Rotator Cuff Test Results Negative Painful Arc Test Results Positive Left Lift-Off Rotator Cuff Test Results Positive Left Crisostomo Aki Impingement Test Results Positive Left Grind Labrum Test Results Negative Empty Can Test Results Negative Belly Press Test Results Left biceps pain Apprehension Test Test Results Negative Anterior Draw Test Results Negative AC Joint Compression Test Results Negative PT-OP-M Strength Start: 12/21/21 17:43 Freq: Status: Active Protocol: Document 02/17/22 16:00 DCW (Rec: 02/17/22 16:18 DCW [id number]) Shoulder Strength Shoulder Manual Muscle Testing Right Flexion 5 Normal Abduction (C5) 5 Normal External Rotation 5 Normal Internal Rotation 5 Normal Left Flexion 3+ Fair+ Abduction (C5) 3+ Fair+ External Rotation 4 Good Internal Rotation 4+ Good+ PT-OP-Q Treatments Start: 12/21/21 17:43 Freq: Status: Active Protocol: Document 03/22/22 08:18 SP (Rec: 03/22/22 09:04 SP [id number]) Gym Equipment Cable Column (Body Solid) lat pull down, rows Details good posturing and alignment pull to chest Resistance 20#PD, 30# Rows Reps/Time x20, hold 1-2sec, PD underhand Therapeutic Exercises Prone Exercises Ts, Is, Ys Prone Exercise Name over 65 cm tball Side bilateral Resistance Ts 2# DB, Is at side 2#DB, Ys AROM Reps/Minutes 15 Ts, 10 Is, Ys x6 reps Comments min cues for scap retract/ depress neutral with each, painfree tiring effort Standing Exercises OH lift to shelf Standing Exercise Name touch tballs Side left Resistance 5#>7#, 10# Reps/Minutes x5 reps each Comments good form, painfree range Bodyblade Standing Exercise Name Bodyblade - Flexion, Abduction Side left Resistance Middle length Reps/Minutes 5 reps each direction Comments challenged maintaining verberation AAROM wall walking Standing Exercise Name FF stretch Side left Reps/Minutes 60 Comments good feedback stretch Other Exercises 1/2 kneel eccentric FF, ABD Other Exercise Name reviewed FF, ABD (1/2 kneel and seated in chair- best chair safety stabil) Side left Resistance Tb #2 Equipment Used foam under L knee- light contact rail stab Reps/Minutes 3-5SHx8 reps each directions ( angled kneel ABD AAROM) Comments cued slow eccentric, allow humeral inferior glide with LT fac- feels good Manual Therapy Treatment Soft Tissue Mobilization L Shoulder Body Location Pec, Biceps, coracobrachialis, prox tricep, subscap, pec Mobilization Type Strumming Intensity/Depth Moderate Body Position Supine Comments Pt reports relief in L biceps PT-OP-R Modalities Start: 12/21/21 17:43 Freq: Status: Active Protocol: Document 03/19/22 10:53 NBM (Rec: 03/19/22 11:36 NBM [id number]) Hot Pack/Cold Pack Treatment Cold Pack Location L shoulder Patient Position Hooklying Treatment Duration (minutes) 10 Patient Tolerance Good PT-OP-T Assessment and Plan Start: 12/21/21 17:43 Freq: Status: Active Protocol: Document 03/22/22 08:18 SP (Rec: 03/22/22 09:04 SP [id number]) Physical Therapy Assessment Goals One Impairment Pt does not have an appropriate home exercise program Short Term Goal (STG) Pt to be independent and compliant with an appropriate HEP. 01/18/22: progressing: resisted shld ext and lateral walk walking forearms, AAROM wall walking stretch (IR, FF, scaption), open book. 02/09/21: intiated eccentric OH 03/02/22: added sleeper stretch , prone Ts, Ys, Is table, side DB HABD, ABD, ABCs at 90deg abd. STG Duration 04/06/22 progressing 03/02/22 Progress Towards Goals Progress Comments L AROM: 03/22/22 ABD: improve 2 deg FF: same 143 deg ER: Same 63 deg IR standing behind back: improved from L2. Assessment Summary Assessment Pt inferior glide humeral head during FF supine and 1/ kneel OH cues slow pacing control eccentric, set scap occasional cues during prone ther ex. Pt reports feels progressing well and wants to condense HEP for continue at home. CHeck in if considering DC next tx. Physical Therapy Plan Frequency and Duration Frequency of Treatment 2x/Week Plan of Care Start Date 02/17/22 Plan of Care End Date 04/06/22 Therapeutic Interventions Therapeutic Interventions Home Exercise Program,Joint Mobilizations,Manual Therapy, Neuromuscular Re-education, Patient/Caregiver Education, Self-Care/Home Management,Soft Tissue Mobilization,Taping, Therapeutic Activities, Therapeutic Exercises, Vestibular Rehabilitation Modalities Cold Pack/Ice Massage,Electric Stimulation,Hot Packs, Ultrasound Next Visit Focus/Plan Next Note Type Treatment Note Next Visit Plan Assess if ready DC and condense HEP. If so cancel remaining appts. Emphasis on ABD/ER L. POC: Progress scap/shldr ex, AROM into end range Ys.
--- NOTE | 2022-03-24 11:19 | PT.OTN ---
Current Diagnoses Pain in left shoulder (03/24/22) Pain in arm, unspecified (03/24/22) Physical Therapy Treatment Note PT-OP-A Visit Information Start: 12/21/21 17:43 Freq: Status: Active Protocol: Document 03/24/22 10:30 DCW (Rec: 03/24/22 11:19 DCW [id number]) Out-Patient Physical Therapy Visit Information Visit Information Visit Type Progress Note Visit Start Time 10:30 Visit Stop Time 11:15 Total Visit Minutes 45 Visit Number 25 Number of GRAIN MANAGER Visits 0 Evaluation Information Evaluation Date 12/21/21 PT-OP-B Current Condition Start: 12/21/21 17:43 Freq: Status: Active Protocol: Document 12/21/21 09:45 DCW (Rec: 12/21/21 17:59 DCW [id number]) Current Condition History of Current Condition Onset Date Seven month history Current Complaints Left shoulder pain History of Current Condition Pt is a 81 year old male presenting with a seven month history of left shoulder pain. 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 Pt was seen by his PCP in July after hoping it would get better, and since then received a referral in October, and waiting to get in for PT since then. Pt reports his pain seems to be worsening,and is limiting his ability to perform his normal activities. Unable to do anything overhead, hurts to even reach back and put his jacket on, or to lay on his left side. Treatment Goals Patient/Caregiver Goals I just want to be pain-free. PT-OP-C Subjective Start: 12/21/21 17:43 Freq: Status: Active Protocol: Document 03/24/22 10:30 DCW (Rec: 03/24/22 11:19 DCW [id number]) OP-PT Subjective Patient Comments Patient Comments It's been feeling pretty good . My biceps still hurts, but it hurts less. I'm using my arm more in my daily life, I can put jackets on and take them off easier. PT-OP-E Functional Tests Start: 12/21/21 17:43 Freq: Status: Active Protocol: Document 02/17/22 16:00 DCW (Rec: 02/17/22 16:18 DCW [id number]) Functional Tests Apley's Scratch Test Action 1- Left Posterior opposite shoulder Action 1- Right Posterior opposite shoulder Action 2- Left T3 Action 2- Right T3 Action 3- Left L2 Action 3- Right T11 PT-OP-F Manual Assessment Start: 12/21/21 17:43 Freq: Status: Active Protocol: Document 02/17/22 16:00 DCW (Rec: 02/17/22 16:18 DCW [id number]) Manual Assessments Soft Tissue Assessment Soft Tissue Mobility Assessment Tenderness to palpation 1/4: complaint of pain L LH biceps origin, infraspinatus PT-OP-K Range of Motion Start: 12/21/21 17:43 Freq: Status: Active Protocol: Document 03/22/22 08:18 SP (Rec: 03/22/22 09:04 SP [id number]) Shoulder Goniometric Range of Motion Shoulder Left Active Shoulder ROM WFL No Testing Position Sitting Flexion 143 Extension 55 Abduction 163 External Rotation at 0 degrees Abduction 63 Internal Rotation Behind Back (text) T11 Comments L AROM: ABD: improve 2 deg FF: same 143 deg ER: Same 63 deg IR standing behind back: improved from L2. PT-OP-L Special Tests Start: 12/21/21 17:43 Freq: Status: Active Protocol: Document 02/17/22 16:00 DCW (Rec: 02/17/22 16:18 DCW [id number]) Special Tests Shoulder Special Tests Yergason's Biceps Test Results Negative Speed's Biceps Test Results Negative Passive ER Rotator Cuff Test Results Negative Painful Arc Test Results Positive Left Lift-Off Rotator Cuff Test Results Positive Left Crisostomo Aki Impingement Test Results Positive Left Grind Labrum Test Results Negative Empty Can Test Results Negative Belly Press Test Results Left biceps pain Apprehension Test Test Results Negative Anterior Draw Test Results Negative AC Joint Compression Test Results Negative PT-OP-M Strength Start: 12/21/21 17:43 Freq: Status: Active Protocol: Document 02/17/22 16:00 DCW (Rec: 02/17/22 16:18 DCW [id number]) Shoulder Strength Shoulder Manual Muscle Testing Right Flexion 5 Normal Abduction (C5) 5 Normal External Rotation 5 Normal Internal Rotation 5 Normal Left Flexion 3+ Fair+ Abduction (C5) 3+ Fair+ External Rotation 4 Good Internal Rotation 4+ Good+ PT-OP-Q Treatments Start: 12/21/21 17:43 Freq: Status: Active Protocol: Document 03/24/22 10:30 DCW (Rec: 03/24/22 11:19 DCW [id number]) Gym Equipment Cable Column (Body Solid) lat pull down, rows Details good posturing and alignment pull to chest Resistance 30#PD, 30# Rows Reps/Time x20, hold 1-2sec Therapeutic Exercises Standing Exercises Curls Standing Exercise Name Biceps curls/reverse curls Side bilateral Resistance 4# IR Stretch Standing Exercise Name Pulleys - IR Side left Reps/Minutes 20s x3 Comments good feedback stretch Manual Therapy Treatment Soft Tissue Mobilization L Shoulder Body Location Pec, Biceps, coracobrachialis, prox tricep, subscap, pec Mobilization Type Strumming Intensity/Depth Moderate Body Position Supine Comments Pt reports relief in L biceps Joint Mobilizations L humeroulnar jt Direction lateral, inferior glide Grade II Body Position Supine Comments use strap sustained gentle distraction, MWM wrist flex/ ext Scap Joint L Direction Protraction, Retraction, inferior, superior Body Position Sidelying PT-OP-R Modalities Start: 12/21/21 17:43 Freq: Status: Active Protocol: Document 03/19/22 10:53 NBM (Rec: 03/19/22 11:36 NBM [id number]) Hot Pack/Cold Pack Treatment Cold Pack Location L shoulder Patient Position Hooklying Treatment Duration (minutes) 10 Patient Tolerance Good PT-OP-T Assessment and Plan Start: 12/21/21 17:43 Freq: Status: Active Protocol: Document 03/24/22 10:30 DCW (Rec: 03/24/22 11:19 DCW [id number]) Physical Therapy Assessment Impairments Impairments Functional Activities, Functional Mobility,Pain,ROM, Soft Tissue Mobility,Strength, Tone Goals One Impairment Pt does not have an appropriate home exercise program Short Term Goal (STG) Pt to be independent and compliant with an appropriate HEP. 01/18/22: progressing: resisted shld ext and lateral walk walking forearms, AAROM wall walking stretch (IR, FF, scaption), open book. 02/09/21: intiated eccentric OH 03/02/22: added sleeper stretch , prone Ts, Ys, Is table, side DB HABD, ABD, ABCs at 90deg abd. STG Duration 04/06/22 progressing 03/02/22 Assessment Summary Assessment Pt making great progress overall, behind back IR nearly WNL, currently equal to right arm. Still has some mild remaining stiffness in end- ranges, and consistent, but improving, left biceps pain. Continue to work toward end- range mobility and stretching. Physical Therapy Plan Frequency and Duration Frequency of Treatment 2x/Week Plan of Care Start Date 02/17/22 Plan of Care End Date 04/06/22 Therapeutic Interventions Therapeutic Interventions Home Exercise Program,Joint Mobilizations,Manual Therapy, Neuromuscular Re-education, Patient/Caregiver Education, Self-Care/Home Management,Soft Tissue Mobilization,Taping, Therapeutic Activities, Therapeutic Exercises, Vestibular Rehabilitation Modalities Cold Pack/Ice Massage,Electric Stimulation,Hot Packs, Ultrasound Next Visit Focus/Plan Next Note Type Treatment Note Next Visit Plan Emphasis on ABD/ER L. POC: Progress scap/shldr ex, AROM into end range Ys.
--- NOTE | 2022-03-29 09:00 | PT.OTN ---
Current Diagnoses Pain in left shoulder (03/29/22) Pain in arm, unspecified (03/29/22) Physical Therapy Treatment Note PT-OP-A Visit Information Start: 12/21/21 17:43 Freq: Status: Active Protocol: Document 03/29/22 08:17 SP (Rec: 03/29/22 09:01 SP [id number]) Out-Patient Physical Therapy Visit Information Visit Information Visit Type Treatment Note Visit Note Pt 17 min late for appt Visit Start Time 08:32 Visit Stop Time 09:00 Total Visit Minutes 28 Visit Number 26 Number of SPRING COILING MACHINE SETTER Visits 1 Evaluation Information Evaluation Date 12/21/21 Precautions Precautions 01/13/22: L shld MRI: 1. Low-grade articular and bursal surface partial thickness tear involving distal supraspinatus extending to musculotendinous junction. Distal infraspinatus tendinosis. No full-thickness rotator cuff tendon rupture. Mild supraspinatus muscle atrophy. 2. Moderate acromioclavicular joint osteoarthritis. No fracture or dislocation. Small amount of joint fluid and subacromial subdeltoid bursal fluid. 3. Suggestion of subtle superior anterior labral tear at 1 to 2 o'clock position. PT-OP-B Current Condition Start: 12/21/21 17:43 Freq: Status: Active Protocol: Document 12/21/21 09:45 DCW (Rec: 12/21/21 17:59 DCW [id number]) Current Condition History of Current Condition Onset Date Seven month history Current Complaints Left shoulder pain History of Current Condition Pt is a 81 year old male presenting with a seven month history of left shoulder pain. 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 Pt was seen by his PCP in July after hoping it would get better, and since then received a referral in October, and waiting to get in for PT since then. Pt reports his pain seems to be worsening,and is limiting his ability to perform his normal activities. Unable to do anything overhead, hurts to even reach back and put his jacket on, or to lay on his left side. Treatment Goals Patient/Caregiver Goals I just want to be pain-free. PT-OP-C Subjective Start: 12/21/21 17:43 Freq: Status: Active Protocol: Document 03/29/22 08:17 SP (Rec: 03/29/22 09:01 SP [id number]) OP-PT Subjective Patient Comments Patient Comments Pt reports late for appt, misjudged time out doing errands. He feels doing well with HEP trying progress ROM with assist stretching/ resistance. Pt report looking at complete PT next few tx and confident HEP then continue on own. PT-OP-E Functional Tests Start: 12/21/21 17:43 Freq: Status: Active Protocol: Document 02/17/22 16:00 DCW (Rec: 02/17/22 16:18 DCW [id number]) Functional Tests Apley's Scratch Test Action 1- Left Posterior opposite shoulder Action 1- Right Posterior opposite shoulder Action 2- Left T3 Action 2- Right T3 Action 3- Left L2 Action 3- Right T11 PT-OP-F Manual Assessment Start: 12/21/21 17:43 Freq: Status: Active Protocol: Document 02/17/22 16:00 DCW (Rec: 02/17/22 16:18 DCW [id number]) Manual Assessments Soft Tissue Assessment Soft Tissue Mobility Assessment Tenderness to palpation 1/: complaint of pain L LH biceps origin, infraspinatus PT-OP-K Range of Motion Start: 12/21/21 17:43 Freq: Status: Active Protocol: Document 03/22/22 08:18 SP (Rec: 03/22/22 09:04 SP [id number]) Shoulder Goniometric Range of Motion Shoulder Left Active Shoulder ROM WFL No Testing Position Sitting Flexion 143 Extension 55 Abduction 163 External Rotation at 0 degrees Abduction 63 Internal Rotation Behind Back (text) T11 Comments L AROM: ABD: improve 2 deg FF: same 143 deg ER: Same 63 deg IR standing behind back: improved from L2. PT-OP-L Special Tests Start: 12/21/21 17:43 Freq: Status: Active Protocol: Document 02/17/22 16:00 DCW (Rec: 02/17/22 16:18 DCW [id number]) Special Tests Shoulder Special Tests Yergason's Biceps Test Results Negative Speed's Biceps Test Results Negative Passive ER Rotator Cuff Test Results Negative Painful Arc Test Results Positive Left Lift-Off Rotator Cuff Test Results Positive Left Crisostomo Aki Impingement Test Results Positive Left Grind Labrum Test Results Negative Empty Can Test Results Negative Belly Press Test Results Left biceps pain Apprehension Test Test Results Negative Anterior Draw Test Results Negative AC Joint Compression Test Results Negative PT-OP-M Strength Start: 12/21/21 17:43 Freq: Status: Active Protocol: Document 02/17/22 16:00 DCW (Rec: 02/17/22 16:18 DCW [id number]) Shoulder Strength Shoulder Manual Muscle Testing Right Flexion 5 Normal Abduction (C5) 5 Normal External Rotation 5 Normal Internal Rotation 5 Normal Left Flexion 3+ Fair+ Abduction (C5) 3+ Fair+ External Rotation 4 Good Internal Rotation 4+ Good+ PT-OP-Q Treatments Start: 12/21/21 17:43 Freq: Status: Active Protocol: Document 03/29/22 08:17 SP (Rec: 03/29/22 09:01 SP [id number]) Gym Equipment Cable Column (Body Solid) lat pull down, rows Details good posturing and alignment pull to chest Resistance 30#PD, 30#>40# Rows Reps/Time x20, hold 1-2sec Therapeutic Exercises Supine Exercises foam roller Supine Exercise Name 1. pec str 2. snow angels 3. Ts 4. Ys 5. ABD/ER Side bilateral Resistance 1-2 AROM, 3-4 3# DB, 5 2#DB Equipment Used small rolled towel under head for CS support Reps/Minutes 10 reps each Comments good CS alignment, cued ABD/ER Prone Exercises ball walking Prone Exercise Name initiated in PT Equipment Used 65cm tball Reps/Minutes 3 step f/b Comments Min A via gait belt for safety , cued slow controlled walk out/back Ts, Is, Ys Prone Exercise Name over 65 cm tball Side bilateral Resistance 2# DB each Reps/Minutes x10 reps each Comments good effort, cued scap depressed Standing Exercises Lateral Wall Walk w/TB Standing Exercise Name (hands just above shld height) Equipment Used TB #1 loop wrists Reps/Minutes 15 ft x1 laps (end tx) Comments Cued no UT recruitment- improved LT fac PT-OP-R Modalities Start: 12/21/21 17:43 Freq: Status: Active Protocol: Document 03/19/22 10:53 NBM (Rec: 03/19/22 11:36 NBM [id number]) Hot Pack/Cold Pack Treatment Cold Pack Location L shoulder Patient Position Hooklying Treatment Duration (minutes) 10 Patient Tolerance Good PT-OP-T Assessment and Plan Start: 12/21/21 17:43 Freq: Status: Active Protocol: Document 03/29/22 08:17 SP (Rec: 03/29/22 09:01 SP [id number]) Physical Therapy Assessment Goals One Impairment Pt does not have an appropriate home exercise program Short Term Goal (STG) Pt to be independent and compliant with an appropriate HEP. 01/18/22: progressing: resisted shld ext and lateral walk walking forearms, AAROM wall walking stretch (IR, FF, scaption), open book. 02/09/21: intiated eccentric OH 03/02/22: added sleeper stretch , prone Ts, Ys, Is table, side DB HABD, ABD, ABCs at 90deg abd. STG Duration 04/06/22 progressing 03/02/22 Assessment Summary Assessment Pt good effort and resisted assist ROM Ys and abd/ER over foam roller feels gained ROM and improved noted LT facilitation during wall walking this tx hand at shld height. Physical Therapy Plan Frequency and Duration Frequency of Treatment 2x/Week Plan of Care Start Date 02/17/22 Plan of Care End Date 04/06/22 Therapeutic Interventions Therapeutic Interventions Home Exercise Program,Joint Mobilizations,Manual Therapy, Neuromuscular Re-education, Patient/Caregiver Education, Self-Care/Home Management,Soft Tissue Mobilization,Taping, Therapeutic Activities, Therapeutic Exercises, Vestibular Rehabilitation Modalities Cold Pack/Ice Massage,Electric Stimulation,Hot Packs, Ultrasound Next Visit Focus/Plan Next Note Type Treatment Note Next Visit Plan Recheck/ condense HEP for I continue at home and gym. POC: Progress scap/shldr ex, AROM into end range Ys.
--- NOTE | 2022-03-31 11:13 | PT.OTN ---
Current Diagnoses Pain in left shoulder (03/31/22) Pain in arm, unspecified (03/31/22) Physical Therapy Treatment Note PT-OP-A Visit Information Start: 12/21/21 17:43 Freq: Status: Active Protocol: Document 03/31/22 10:30 DCW (Rec: 03/31/22 11:13 DCW [id number]) Out-Patient Physical Therapy Visit Information Visit Information Visit Type Treatment Note Visit Start Time 10:30 Visit Stop Time 11:15 Total Visit Minutes 45 Visit Number 27 Number of RIBBON BLOCKMAKER Visits 0 Evaluation Information Evaluation Date 12/21/21 Precautions Precautions 01/13/22: L shld MRI: 1. Low-grade articular and bursal surface partial thickness tear involving distal supraspinatus extending to musculotendinous junction. Distal infraspinatus tendinosis. No full-thickness rotator cuff tendon rupture. Mild supraspinatus muscle atrophy. 2. Moderate acromioclavicular joint osteoarthritis. No fracture or dislocation. Small amount of joint fluid and subacromial subdeltoid bursal fluid. 3. Suggestion of subtle superior anterior labral tear at 1 to 2 o'clock position. PT-OP-B Current Condition Start: 12/21/21 17:43 Freq: Status: Active Protocol: Document 12/21/21 09:45 DCW (Rec: 12/21/21 17:59 DCW [id number]) Current Condition History of Current Condition Onset Date Seven month history Current Complaints Left shoulder pain History of Current Condition Pt is a 81 year old male presenting with a seven month history of left shoulder pain. 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 Pt was seen by his PCP in July after hoping it would get better, and since then received a referral in October, and waiting to get in for PT since then. Pt reports his pain seems to be worsening,and is limiting his ability to perform his normal activities. Unable to do anything overhead, hurts to even reach back and put his jacket on, or to lay on his left side. Treatment Goals Patient/Caregiver Goals I just want to be pain-free. PT-OP-C Subjective Start: 12/21/21 17:43 Freq: Status: Active Protocol: Document 03/31/22 10:30 DCW (Rec: 03/31/22 11:13 DCW [id number]) OP-PT Subjective Patient Comments Patient Comments The shoulder gets better all the time. It still hurts, but it has less pain and I get better movement out of it. PT-OP-E Functional Tests Start: 12/21/21 17:43 Freq: Status: Active Protocol: Document 02/17/22 16:00 DCW (Rec: 02/17/22 16:18 DCW [id number]) Functional Tests Apley's Scratch Test Action 1- Left Posterior opposite shoulder Action 1- Right Posterior opposite shoulder Action 2- Left T3 Action 2- Right T3 Action 3- Left L2 Action 3- Right T11 PT-OP-F Manual Assessment Start: 12/21/21 17:43 Freq: Status: Active Protocol: Document 02/17/22 16:00 DCW (Rec: 02/17/22 16:18 DCW [id number]) Manual Assessments Soft Tissue Assessment Soft Tissue Mobility Assessment Tenderness to palpation 02/10: complaint of pain L LH biceps origin, infraspinatus PT-OP-K Range of Motion Start: 12/21/21 17:43 Freq: Status: Active Protocol: Document 03/22/22 08:18 SP (Rec: 03/22/22 09:04 SP [id number]) Shoulder Goniometric Range of Motion Shoulder Left Active Shoulder ROM WFL No Testing Position Sitting Flexion 143 Extension 55 Abduction 163 External Rotation at 0 degrees Abduction 63 Internal Rotation Behind Back (text) T11 Comments L AROM: ABD: improve 2 deg FF: same 143 deg ER: Same 63 deg IR standing behind back: improved from L2. PT-OP-L Special Tests Start: 12/21/21 17:43 Freq: Status: Active Protocol: Document 02/17/22 16:00 DCW (Rec: 02/17/22 16:18 DCW [id number]) Special Tests Shoulder Special Tests Yergason's Biceps Test Results Negative Speed's Biceps Test Results Negative Passive ER Rotator Cuff Test Results Negative Painful Arc Test Results Positive Left Lift-Off Rotator Cuff Test Results Positive Left Crisostomo Aki Impingement Test Results Positive Left Grind Labrum Test Results Negative Empty Can Test Results Negative Belly Press Test Results Left biceps pain Apprehension Test Test Results Negative Anterior Draw Test Results Negative AC Joint Compression Test Results Negative PT-OP-M Strength Start: 12/21/21 17:43 Freq: Status: Active Protocol: Document 02/17/22 16:00 DCW (Rec: 02/17/22 16:18 DCW [id number]) Shoulder Strength Shoulder Manual Muscle Testing Right Flexion 5 Normal Abduction (C5) 5 Normal External Rotation 5 Normal Internal Rotation 5 Normal Left Flexion 3+ Fair+ Abduction (C5) 3+ Fair+ External Rotation 4 Good Internal Rotation 4+ Good+ PT-OP-Q Treatments Start: 12/21/21 17:43 Freq: Status: Active Protocol: Document 03/31/22 10:30 DCW (Rec: 03/31/22 11:13 DCW [id number]) Gym Equipment Cable Column (Body Solid) lat pull down, rows Details good posturing and alignment pull to chest Resistance 30#PD, 40# Rows Reps/Time x20, hold 1-2sec Therapeutic Exercises Prone Exercises Ts, Is, Ys Prone Exercise Name over 65 cm tball Side bilateral Resistance 4# DB each Reps/Minutes x10 reps each Comments good effort, cued scap depressed Manual Therapy Treatment Soft Tissue Mobilization L Shoulder Body Location Pec, Biceps, coracobrachialis, prox tricep, subscap, pec Mobilization Type Strumming Intensity/Depth Moderate Body Position Supine Comments Pt reports relief in L biceps Joint Mobilizations L humeroulnar jt Direction lateral, inferior glide Grade II Body Position Supine Scap Joint L Direction Protraction, Retraction, inferior, superior Body Position Supine PT-OP-R Modalities Start: 12/21/21 17:43 Freq: Status: Active Protocol: Document 03/19/22 10:53 NBM (Rec: 03/19/22 11:36 NBM [id number]) Hot Pack/Cold Pack Treatment Cold Pack Location L shoulder Patient Position Hooklying Treatment Duration (minutes) 10 Patient Tolerance Good PT-OP-T Assessment and Plan Start: 12/21/21 17:43 Freq: Status: Active Protocol: Document 03/31/22 10:30 DCW (Rec: 03/31/22 11:13 DCW [id number]) Physical Therapy Assessment Impairments Impairments Functional Activities, Functional Mobility,Pain,ROM, Soft Tissue Mobility,Strength, Tone Goals One Impairment Pt does not have an appropriate home exercise program Short Term Goal (STG) Pt to be independent and compliant with an appropriate HEP. 01/18/22: progressing: resisted shld ext and lateral walk walking forearms, AAROM wall walking stretch (IR, FF, scaption), open book. 02/09/21: initiated eccentric OH 03/02/22: added sleeper stretch , prone Ts, Ys, Is table, side DB HABD, ABD, ABCs at 90deg abd. STG Duration 04/06/22 progressing 03/02/22 Assessment Summary Assessment Pt continues to demonstrate improvement with pain levels and overall ROM. Will likely be appropriate for discharge following his last scheduled visit next week. Doing well with HEP. Physical Therapy Plan Frequency and Duration Frequency of Treatment 2x/Week Plan of Care Start Date 02/17/22 Plan of Care End Date 04/06/22 Therapeutic Interventions Therapeutic Interventions Home Exercise Program,Joint Mobilizations,Manual Therapy, Neuromuscular Re-education, Patient/Caregiver Education, Self-Care/Home Management,Soft Tissue Mobilization,Taping, Therapeutic Activities, Therapeutic Exercises, Vestibular Rehabilitation Modalities Cold Pack/Ice Massage,Electric Stimulation,Hot Packs, Ultrasound Next Visit Focus/Plan Next Note Type Treatment Note Next Visit Plan Recheck/ condense HEP for I continue at home and gym. POC: Progress scap/shldr ex, AROM into end range Ys.
--- NOTE | 2022-04-06 16:34 | PT.OTN ---
Current Diagnoses Pain in left shoulder (04/06/22) Pain in arm, unspecified (04/06/22) Physical Therapy Treatment Note PT-OP-A Visit Information Start: 12/21/21 17:43 Freq: Status: Active Protocol: Document 04/06/22 16:02 DCW (Rec: 04/06/22 16:34 DCW [id number]) Out-Patient Physical Therapy Visit Information Visit Information Visit Type Discharge Summary Visit Start Time 16:02 Visit Stop Time 16:20 Total Visit Minutes 18 Visit Number 28 Number of SAMPLE PREPARATION SUPERVISOR Visits 0 Evaluation Information Evaluation Date 12/21/21 Precautions Precautions 01/13/22: L shld MRI: 1. Low-grade articular and bursal surface partial thickness tear involving distal supraspinatus extending to musculotendinous junction. Distal infraspinatus tendinosis. No full-thickness rotator cuff tendon rupture. Mild supraspinatus muscle atrophy. 2. Moderate acromioclavicular joint osteoarthritis. No fracture or dislocation. Small amount of joint fluid and subacromial subdeltoid bursal fluid. 3. Suggestion of subtle superior anterior labral tear at 1 to 2 o'clock position. PT-OP-B Current Condition Start: 12/21/21 17:43 Freq: Status: Active Protocol: Document 12/21/21 09:45 DCW (Rec: 12/21/21 17:59 DCW [id number]) Current Condition History of Current Condition Onset Date Seven month history Current Complaints Left shoulder pain History of Current Condition Pt is a 81 year old male presenting with a seven month history of left shoulder pain. 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 Pt was seen by his PCP in July after hoping it would get better, and since then received a referral in October, and waiting to get in for PT since then. Pt reports his pain seems to be worsening,and is limiting his ability to perform his normal activities. Unable to do anything overhead, hurts to even reach back and put his jacket on, or to lay on his left side. Treatment Goals Patient/Caregiver Goals I just want to be pain-free. PT-OP-C Subjective Start: 12/21/21 17:43 Freq: Status: Active Protocol: Document 04/06/22 16:02 DCW (Rec: 04/06/22 16:34 DCW [id number]) OP-PT Subjective Patient Comments Patient Comments Pt doing well with HEP, was at the gym earlier today. PT-OP-E Functional Tests Start: 12/21/21 17:43 Freq: Status: Active Protocol: Document 04/06/22 16:02 DCW (Rec: 04/06/22 16:16 DCW [id number]) Functional Tests Apley's Scratch Test Action 1- Left Posterior opposite shoulder Action 1- Right Posterior opposite shoulder Action 2- Left T4 Action 2- Right T3 Action 3- Left T8 Action 3- Right T10 PT-OP-F Manual Assessment Start: 12/21/21 17:43 Freq: Status: Active Protocol: Document 04/06/22 16:02 DCW (Rec: 04/06/22 16:16 DCW [id number]) Manual Assessments Soft Tissue Assessment Soft Tissue Mobility Assessment No complaints of tenderness to palpation PT-OP-K Range of Motion Start: 12/21/21 17:43 Freq: Status: Active Protocol: Document 04/06/22 16:02 DCW (Rec: 04/06/22 16:16 DCW [id number]) Shoulder Goniometric Range of Motion Shoulder Left Active Shoulder ROM WFL No Testing Position Sitting Flexion 152 Abduction 174 External Rotation at 0 degrees Abduction 63 Internal Rotation Behind Back (text) T10 PT-OP-L Special Tests Start: 12/21/21 17:43 Freq: Status: Active Protocol: Document 04/06/22 16:02 DCW (Rec: 04/06/22 16:16 DCW [id number]) Special Tests Shoulder Special Tests Painful Arc Test Results Negative Lift-Off Rotator Cuff Test Results Negative Crisostomo Aki Impingement Test Results Negative Belly Press Test Results Negative PT-OP-M Strength Start: 12/21/21 17:43 Freq: Status: Active Protocol: Document 04/06/22 16:02 DCW (Rec: 04/06/22 16:16 DCW [id number]) Shoulder Strength Shoulder Manual Muscle Testing Right Flexion 5 Normal Abduction (C5) 5 Normal External Rotation 5 Normal Internal Rotation 5 Normal Left Flexion 5 Normal Abduction (C5) 4 Good External Rotation 5 Normal Internal Rotation 5 Normal PT-OP-Q Treatments Start: 12/21/21 17:43 Freq: Status: Active Protocol: Document 04/06/22 16:02 DCW (Rec: 04/06/22 16:34 DCW [id number]) Gym Equipment Cable Column (Body Solid) lat pull down, rows Details good posturing and alignment pull to chest Resistance 30#PD, 40# Rows Reps/Time x20, hold 1-2sec PT-OP-R Modalities Start: 12/21/21 17:43 Freq: Status: Active Protocol: Document 03/19/22 10:53 NBM (Rec: 03/19/22 11:36 NBM [id number]) Hot Pack/Cold Pack Treatment Cold Pack Location L shoulder Patient Position Hooklying Treatment Duration (minutes) 10 Patient Tolerance Good PT-OP-T Assessment and Plan Start: 12/21/21 17:43 Freq: Status: Active Protocol: Document 04/06/22 16:02 DCW (Rec: 04/06/22 16:34 DCW [id number]) Physical Therapy Assessment Impairments Impairments Functional Activities, Functional Mobility,Pain,ROM, Soft Tissue Mobility,Strength, Tone Goals Two Impairment Pt limited to 131? flexion and 80? abduction in left shoulder Mcfp Goal (LTG) Pt to improve pain-free shoulder ROM to at least 135? in both flexion and abduction to improve ability to don/doff shirt and jacket without increased pain 01/18/22: progressin FF, 85 ABD. Pt demonstrates compensations into scaption, not measured. He states improving getting shirt/jacket on but still limiting. IR stretching helping with gaining this ROM. 02/09/21: Goal MET: 159 ABD, remained 142 FF. LTG Duration 02/20/21 goal met One Impairment Pt does not have an appropriate home exercise program Short Term Goal (STG) Pt to be independent and compliant with an appropriate HEP. 01/18/22: progressing: resisted shld ext and lateral walk walking forearms, AAROM wall walking stretch (IR, FF, scaption), open book. 02/09/21: initiated eccentric OH 03/02/22: added sleeper stretch , prone Ts, Ys, Is table, side DB HABD, ABD, ABCs at 90deg abd. STG Duration Met Progress Towards Goals Progress Towards Goals Goals Met Assessment Summary Assessment Pt has met all goals, functional mobility WNL, independent with HEP. Pt appropriate for discharge from skilled therapy at this time. Physical Therapy Plan Frequency and Duration Frequency of Treatment 2x/Week Plan of Care Start Date 02/17/22 Plan of Care End Date 04/06/22 Therapeutic Interventions Therapeutic Interventions Home Exercise Program,Joint Mobilizations,Manual Therapy, Neuromuscular Re-education, Patient/Caregiver Education, Self-Care/Home Management,Soft Tissue Mobilization,Taping, Therapeutic Activities, Therapeutic Exercises, Vestibular Rehabilitation Modalities Cold Pack/Ice Massage,Electric Stimulation,Hot Packs, Ultrasound Discharge Physical Therapy Discharge Reasons Goals Met Next Visit Focus/Plan Next Note Type Discharge Summary
== END 2022-07-26 10:50 | disposition home or self-care (01) ==
LOC: PHYS 16:00
PROVIDERS: Family Provider Student in an Organized Health Care Education/Training Program; PCP Student in an Organized Health Care Education/Training Program; Referring Provider Internal Medicine; Visit Provider Internal Medicine
DX: M25.512 Pain in left shoulder (principal); M79.603 Pain in arm, unspecified
CPT/HCPCS: 97110; 97140; 97162

== ENCOUNTER → 2022-11-30 07:00 | Outpatient (CLI) | payer OTHER, SELFPAY ==
[2022-11-30 08:18] LABS: Hematocrit 46.4 % (41-53); Hemoglobin 15.6 g/dL (13.5-17.5); Mean Corpuscular HGB Conc 33.5 % (30-36); Mean Corpuscular Hemoglobin 28.8 PG (26-34); Mean Corpuscular Volume 86.1 fL (80-100); Platelet Count 104 X10^3/uL (150-400); Red Blood Cell Count 5.39 X10^6/uL (4.5-5.9); Red Cell Distribution Width 14.4 % (11.6-14.8); White Blood Cell Count 4.9 X10^3/uL (4.5-11.0)
[2022-11-30 08:24] LABS: Alanine Aminotransferase 19 IU/L (<50); Albumin 4.2 g/dL (3.5-5.0); Albumin Globulin Ratio 1.7 (1.0-2.8); Alkaline Phosphatase 48 U/L (38-126); Aspartate Aminotransferase 29 IU/L (17-59); BUN Creatinine Ratio 17.6 (6-22); Bilirubin Total 0.6 mg/dL (0.2-1.3); Blood Urea Nitrogen 16 mg/dL (9-20); Calcium 9.5 mg/dL (8.4-10.2); Carbon Dioxide 26 mmol/L (22-32); Chloride 104 mmol/L (98-107); Cholesterol 211 mg/dL (140-199); Estimated Glomerular Filt Rate > 60 mL/min (>60); Globulin 2.5 g/dL (1.7-4.1); Glucose 110 mg/dL (80-110); HDL Cholesterol 49 mg/dL (40-60); HEMOLYSIS < 15 (0-50); LDL Cholesterol Calculated 131 mg/dL (<100); Potassium 4.4 mmol/L (3.4-5.1); Sodium 138 mmol/L (137-145); Total Protein 6.7 g/dL (6.3-8.2); Triglycerides 155 mg/dL (35-150)
[2022-11-30 08:58] LABS: Prostate Specific Antigen 0.347 ng/mL (0.10-4.00)
[2022-11-30 09:01] LABS: TSH w/ Reflex to FT4 1.27 uIU/mL (0.47-4.68)
== END ==
PROVIDERS: Family Provider Student in an Organized Health Care Education/Training Program; PCP Family Medicine; Referring Provider Family Medicine; Visit Provider Family Medicine
DX: Z00.00 Encounter for general adult medical examination without abnormal findings (principal); E78.00 Pure hypercholesterolemia, unspecified; I10 Essential (primary) hypertension
CPT/HCPCS: 36415; 80053; 80061; 84153; 84443; 85027

== ENCOUNTER → 2023-05-21 08:06 | Outpatient (CLI) | payer OTHER, SELFPAY ==
[2023-05-21 08:52] LABS: Add Manual Diff / Slide Review NO; Basophils Absolute Auto 0 /uL (0-100); Basophils Percent Auto 0.7 % (0-2); Eosinophils Absolute Auto 100 /uL (0-450); Eosinophils Percent Auto 2.1 % (2-4); Hematocrit 45.9 % (41-53); Hemoglobin 15.2 g/dL (13.5-17.5); Lymphocytes Absolute Auto 1600 /uL (1100-4500); Lymphocytes Percent Auto 35.5 % (25-40); Mean Corpuscular HGB Conc 33.2 % (30-36); Mean Corpuscular Hemoglobin 28.9 PG (26-34); Mean Corpuscular Volume 87.3 fL (80-100); Monocytes Absolute Auto 200 /uL (0-900); Monocytes Percent Auto 3.6 % (3-14); Neutrophils Absolute Auto 2700 /uL (1500-7000); Neutrophils Percent Auto 58.1 % (50-75); Platelet Count 100 X10^3/uL (150-400); Red Blood Cell Count 5.25 X10^6/uL (4.5-5.9); Red Cell Distribution Width 14.4 % (11.6-14.8); White Blood Cell Count 4.6 X10^3/uL (4.5-11.0)
[2023-05-21 09:12] LABS: Alanine Aminotransferase 20 IU/L (<50); Albumin 3.9 g/dL (3.5-5.0); Albumin Globulin Ratio 1.6 (1.0-2.8); Alkaline Phosphatase 52 U/L (38-126); Aspartate Aminotransferase 27 IU/L (17-59); BUN Creatinine Ratio 17.7 (6-22); Bilirubin Total 0.8 mg/dL (0.2-1.3); Blood Urea Nitrogen 17 mg/dL (9-20); Calcium 9.3 mg/dL (8.4-10.2); Carbon Dioxide 25 mmol/L (22-32); Chloride 109 mmol/L (98-107); Cholesterol 203 mg/dL (140-199); Estimated Glomerular Filt Rate > 60 mL/min (>60); Globulin 2.5 g/dL (1.7-4.1); Glucose 113 mg/dL (80-110); HDL Cholesterol 51 mg/dL (40-60); HEMOLYSIS < 15 (0-50); LDL Cholesterol Calculated 127 mg/dL (<100); Potassium 4.7 mmol/L (3.4-5.1); Sodium 138 mmol/L (137-145); Total Protein 6.4 g/dL (6.3-8.2); Triglycerides 123 mg/dL (35-150)
[2023-05-21 09:40] LABS: Prostate Specific Antigen Scrn 0.341 ng/mL (0.1-4.0)
[2023-05-21 09:47] LABS: TSH w/ Reflex to FT4 1.14 uIU/mL (0.47-4.68)
== END ==
LOC: LAB 08:07
PROVIDERS: PCP Family Medicine; Referring Provider Family Medicine; Visit Provider Family Medicine
DX: Z12.5 Encounter for screening for malignant neoplasm of prostate (principal); I10 Essential (primary) hypertension; E78.00 Pure hypercholesterolemia, unspecified; Z85.51 Personal history of malignant neoplasm of bladder
CPT/HCPCS: 36415; 80053; 80061; 84443; 85025; G0103

== ENCOUNTER → 2023-11-03 07:05 | Outpatient (CLI) | payer OTHER, SELFPAY ==
[2023-11-03 08:42] LABS: Alanine Aminotransferase 17 IU/L (<50); Albumin 3.9 g/dL (3.5-5.0); Albumin Globulin Ratio 1.8 (1.0-2.8); Alkaline Phosphatase 52 U/L (38-126); Aspartate Aminotransferase 28 IU/L (17-59); BUN Creatinine Ratio 15.5 (6-22); Bilirubin Total 0.8 mg/dL (0.2-1.3); Blood Urea Nitrogen 15 mg/dL (9-20); Calcium 9.2 mg/dL (8.4-10.2); Carbon Dioxide 29 mmol/L (22-32); Chloride 105 mmol/L (98-107); Cholesterol 164 mg/dL (140-199); Estimated Glomerular Filt Rate > 60 mL/min (>60); Globulin 2.2 g/dL (1.7-4.1); Glucose 100 mg/dL (80-110); HDL Cholesterol 41 mg/dL (40-60); HEMOLYSIS 16 (0-50); LDL Cholesterol Calculated 103 mg/dL (<100); Potassium 4.7 mmol/L (3.4-5.1); Sodium 138 mmol/L (137-145); Total Protein 6.1 g/dL (6.3-8.2); Triglycerides 102 mg/dL (35-150)
== END ==
PROVIDERS: PCP Family Medicine; Referring Provider Family Medicine; Visit Provider Family Medicine
DX: I10 Essential (primary) hypertension (principal); E78.00 Pure hypercholesterolemia, unspecified
CPT/HCPCS: 36415; 80053; 80061

== ENCOUNTER → 2023-11-26 15:35 | Outpatient (ROUT) | payer OTHER, SELFPAY ==
[2023-11-26 15:41] LABS: Urine Volume 10mL (spun)
[2023-11-26 15:42] LABS: Bacteria Urine None Seen; Culture Indicated Urine Cult Not Indicated; RBC Urine None Seen (0-5/HPF); Squamous Epithelial Cell Urine None Seen (0-5/HPF); WBC Urine None Seen (0-5/HPF)
== END ==
PROVIDERS: PCP Family Medicine; Visit Provider Physician Assistant Medical
DX: R31.29 Other microscopic hematuria (principal)
CPT/HCPCS: 81015

== ENCOUNTER → 2024-05-03 07:25 | Outpatient (CLI) | payer OTHER, SELFPAY ==
[2024-05-03 08:45] LABS: Alanine Aminotransferase 23 IU/L (<50); Albumin 4.1 g/dL (3.5-5.0); Albumin Globulin Ratio 1.9 (1.0-2.8); Alkaline Phosphatase 52 U/L (38-126); Aspartate Aminotransferase 30 IU/L (17-59); Bilirubin Total 0.5 mg/dL (0.2-1.3); Blood Urea Nitrogen 18 mg/dL (9-20); Calcium 9.5 mg/dL (8.4-10.2); Carbon Dioxide 28 mmol/L (22-32); Chloride 104 mmol/L (98-107); Estimated Glomerular Filt Rate > 60 mL/min (>60); Globulin 2.2 g/dL (1.7-4.1); Glucose 105 mg/dL (80-110); HEMOLYSIS < 15 (0-50); Potassium 4.6 mmol/L (3.4-5.1); Sodium 138 mmol/L (137-145); Total Protein 6.3 g/dL (6.3-8.2)
== END ==
PROVIDERS: PCP Family Medicine; Referring Provider Family Medicine; Visit Provider Family Medicine
DX: I10 Essential (primary) hypertension (principal); E78.00 Pure hypercholesterolemia, unspecified; Z12.11 Encounter for screening for malignant neoplasm of colon
CPT/HCPCS: 36415; 80053

== ENCOUNTER → 2024-05-07 08:57 | Outpatient (CLI) | payer OTHER, SELFPAY ==
[2024-05-08 10:08] LABS: Fecal Immunochemical Test Negative (Negative)
== END ==
PROVIDERS: PCP Family Medicine; Referring Provider Family Medicine; Visit Provider Family Medicine
DX: I10 Essential (primary) hypertension (principal); E78.00 Pure hypercholesterolemia, unspecified; Z12.11 Encounter for screening for malignant neoplasm of colon
CPT/HCPCS: 82274

== ENCOUNTER → 2024-06-11 07:06 | Outpatient (CLI) | payer OTHER, SELFPAY ==
[2024-06-11 08:44] LABS: Prostate Specific Antigen 0.094 ng/mL (0.10-4.00)
== END ==
PROVIDERS: PCP Family Medicine; Referring Provider Radiology Radiation Oncology; Visit Provider Radiology Radiation Oncology
DX: C61 Malignant neoplasm of prostate (principal)
CPT/HCPCS: 36415; 84153

== ENCOUNTER → 2024-11-06 07:00 | Outpatient (CLI) | payer OTHER, SELFPAY ==
[2024-11-06 08:47] LABS: Add Manual Diff / Slide Review NO; Hematocrit 43.4 % (41-53); Hemoglobin 14.5 g/dL (13.5-17.5); Lymphocytes Absolute Auto 1400 /uL (1100-4500); Mean Corpuscular HGB Conc 33.4 % (30-36); Mean Corpuscular Hemoglobin 28.8 PG (26-34); Mean Corpuscular Volume 86.3 fL (80-100); Platelet Count 90 X10^3/uL (150-400)
[2024-11-06 09:12] LABS: Alanine Aminotransferase 17 IU/L (<50); Albumin 3.9 g/dL (3.5-5.0); Albumin Globulin Ratio 1.8 (1.0-2.8); Alkaline Phosphatase 47 U/L (38-126); Blood Urea Nitrogen 19 mg/dL (9-20); Calcium 8.9 mg/dL (8.4-10.2); Carbon Dioxide 26 mmol/L (22-32); Chloride 106 mmol/L (98-107); Cholesterol 189 mg/dL (140-199); Estimated Glomerular Filt Rate > 60 mL/min (>60); Globulin 2.2 g/dL (1.7-4.1); Glucose 110 mg/dL (70-99); HDL Cholesterol 52 mg/dL (40-60); HEMOLYSIS < 15 (0-50); Potassium 4.9 mmol/L (3.4-5.1); Sodium 136 mmol/L (137-145); Total Protein 6.1 g/dL (6.3-8.2); Triglycerides 100 mg/dL (35-150)
[2024-11-06 09:42] LABS: TSH w/ Reflex to FT4 1.12 uIU/mL (0.47-4.68)
== END ==
PROVIDERS: PCP Family Medicine; Referring Provider Family Medicine; Visit Provider Family Medicine
DX: I10 Essential (primary) hypertension (principal); Z85.46 Personal history of malignant neoplasm of prostate; Z12.5 Encounter for screening for malignant neoplasm of prostate; E78.00 Pure hypercholesterolemia, unspecified
CPT/HCPCS: 36415; 80053; 80061; 84443; 85025; G0103